=== PATIENT | female | born 1965 | race Caucasian/White ===

== ENCOUNTER 2025-01-02 14:26 | Emergency (ER) | payer OTHER, SELFPAY ==
--- NOTE | ~2025-01-02 | XR_ITS ---
CLINICAL HISTORY: chest pain 2 view chest x-ray. Comparison: None Findings: No consolidation Heart size normal No acute fracture. Impression: Lungs are clear. No pneumothorax This document has been electronically signed by: Pj Yen MD on 01/02/2025 16:34:07
--- NOTE | ~2025-01-02 | CT_ITS ---
CLINICAL HISTORY: Pleuritic pain, tachycardia CTA angiography chest using bolus contrast injection. 3-D postprocessing Comparison: None Findings: Normal thoracic aorta and branch vessels Heart size is normal. RV/LV ratio normal Normal lungs Below the diaphragm, there is gastric bypass Hill-en-Y surgery and a 6 cm hiatal hernia. There is a large 2.5 cm well-circumscribed granuloma in the periphery of the right liver dome. The gallbladder is surgically absent. Large intraperitoneal collateral blood vessels are present in the left upper quadrant No acute fractures Impression: Normal CTA angiography of the aorta. Negative for pulmonary embolus. Lungs are clear. This document has been electronically signed by: Pj Yen MD on 01/02/2025 17:16:59
--- NOTE | 2025-01-02 14:27 | ECG_ITS ---
Test Reason : CP Blood Pressure : */* mmHG Vent. Rate : 94 BPM Atrial Rate : 94 BPM P-R Int : 198 ms QRS Dur : 88 ms QT Int : 354 ms P-R-T Axes : -5 11 33 degrees QTcB Int : 442 ms Normal sinus rhythm Normal ECG No previous ECGs available Referred By: Generic ED Physician Electronically Signed By: KAYLEEN LOPEZ MD
[2025-01-02 14:42] VITALS: BP 131/88; PULSE 99; RESP 18; TEMP 36.8; O2SAT 99; BMI 29.6
--- NOTE | 2025-01-02 14:43 | ED_ITS ---
HPI - General Adult General Chief complaint: Chest Pain Stated complaint: chest pain, sent from Time Seen by Provider: 01/02/25 15:51 Source: patient Mode of arrival: ambulatory Limitations: no limitations History of Present Illness ED Provider: Vidal Mora DO HPI narrative: 59-year-old female with past medical history of insulin-dependent type 2 diabetes, hypertension, hyperlipidemia, open heart surgery for ASD at age 25, remote history of gastric bypass surgery and cholecystectomy presents to the ED with palpitations and chest pain that started approximately 2 weeks ago, was previously intermittent but constant today. She describes the chest pain as someone punched me in the chest located in the left chest, worsened with palpation and exertion with pain radiating to her left shoulder and down her left arm as well as toward her right shoulder. Patient denies previous symptoms of chest pain or palpitations. She reports associated sweating and occasional nausea with the discomfort. She denies abdominal pain, vomiting or difficulty breathing at rest but does report dyspnea on exertion and states the pain is most worsened with deep breaths. Denies lower extremity pain or swelling or previous DVT or PE. Related Data Home Medications ?Medication ?Instructions ?Recorded ?Confirmed acetaminophen 500 mg tablet 2 tab PO Q6H PRN pain 10/01/22 07/07/24 atorvastatin 10 mg tablet 1 tab PO DAILY 10/01/22 07/07/24 dulaglutide 1.5 mg/0.5 mL 0.75 mg subcut QWEEK 10/01/22 07/07/24 subcutaneous pen injector (Trulicity) ferrous sulfate 324 mg (65 mg 1 tab PO BID 10/01/22 07/07/24 iron) tablet,delayed release gabapentin 600 mg tablet 1 tab PO TID 10/01/22 07/07/24 insulin glargine 100 unit/mL (3 35 unit subcut DAILY 10/01/22 07/07/24 mL) subcutaneous pen (Lantus Solostar U-100 Insulin) metformin 1,000 mg tablet 1 tab PO BID 10/01/22 07/07/24 trazodone 100 mg tablet 2 tab PO BEDTIME PRN insomnia 10/01/22 07/07/24 bupropion HCl 300 mg 24 hr tablet, 300 mg PO DAILY 04/30/23 07/07/24 extended release flash glucose scanning reader 04/30/23 07/07/24 (FreeStyle Sean 2 [place]) hydrochlorothiazide 25 mg tablet 25 mg PO DAILY 04/30/23 07/07/24 lisinopril 40 mg tablet 40 mg PO DAILY 04/30/23 07/07/24 loratadine 10 mg tablet 10 mg PO DAILY 04/30/23 07/07/24 metoprolol succinate 25 mg 25 mg PO DAILY 04/30/23 07/07/24 tablet,extended release 24 hr omeprazole 20 mg capsule,delayed 20 mg PO BID 04/30/23 07/07/24 release venlafaxine 150 mg 150 mg PO BID 04/30/23 07/07/24 capsule,extended release 24 hr insulin lispro 100 unit/mL 5 - 10 unit subcut TID 08/09/23 07/07/24 subcutaneous pen (Humalog KwikPen (U-100) Insulin) insulin lispro 100 unit/mL 5 - 10 unit subcut TID 08/09/23 07/07/24 subcutaneous pen (Humalog KwikPen (U-100) Insulin) hyoscyamine sulfate 0.125 mg 0.125 mg PO Q4H PRN abdominal pain 07/07/24 07/07/24 disintegrating tablet Previous Rx's ?Medication ?Instructions ?Recorded cholecalciferol (vitamin D3) 125 125 mcg PO DAILY #90 tabs 10/26/24 mcg (5,000 unit) tablet (Vitamin D3) Allergies Allergy/AdvReac Type Severity Reaction Status Date / Time No Known Allergies Allergy Verified 01/02/25 14:45 Review of Systems 2 Review of Systems: Yes all other systems are reviewed and are negative [facility] Past Medical History Medical History (Updated 01/02/25 @ 18:08 by Vidal Mora DO) Fusion of lumbar spine Back pain with history of spinal surgery Atrial septal defect Bunion of unspecified foot delivery delivered Iron deficiency anemia High blood pressure Diabetes Surgical History (Updated 10/08/24 @ 13:02 by Megan Rolon) Gastric bypass status for obesity H/O heart surgery Social History Social History (System 10/08/24 @ 13:02 by Megan Rolon) Household Members: Family Patient Tobacco Use Status: Never used Tobacco Advance Directives: No Advance Directives Information Provided: Yes service: No Current occupational status: employed Physical Exam ED Vital Signs: Vital Signs - 24 hr 01/02/25 14:42 Temperature 98.2 F Pulse Rate 99 Respiratory Rate 18 Blood Pressure 131/88 Pulse Oximetry 99 Oxygen Delivery Method Room Air BMI result Body Mass Index 29.6 Constitutional: Alert, oriented, speaking in full sentences HEENT: Normocephalic, atraumatic. Moist mucous membranes Eyes: PERRL, EOMI Neck: Supple, nontender Chest: Mild chest wall tenderness to palpation Respiratory: Lungs clear to auscultation, no increased work of breathing Cardio: Regular rate and rhythm, no murmur, 2+ radial and DP pulses symmetrically GI: Soft, nondistended, nontender Back: Normal range of motion, nontender Skin: No rash, no lesions Neuro: Alert and oriented to person, place and time, moves all 4 extremities, no focal deficits Extremities: No swelling or tenderness, full range of motion Psych: Calm, alert and cooperative, appropriate behavior Course Course Course Narrative: RME performed by Luiza Wolf PA-C. Patient is a 59 year old assigned female at presenting to the emergency department with left sided chest pain and fluttering episodes. Patient states that over the last day she has had left sided chest pain with episodes of fluttering. Detailed physical exam and review of systems are deferred to the necktie turner. EKG, labs, imaging, and swabs ordered. Patient placed back in the waiting room pending room availability and results. Medications Administered Discontinued Medications Generic Name Dose Route Start Last Admin Trade Name Julio Césarq PRN Reason Stop Dose Admin Aspirin 325 mg 01/02/25 16:11 01/02/25 16:16 Aspirin Enteric Coated 325 Mg Tablet.Dr PO 01/02/25 16:12 325 mg ONCE ONE Administration Iohexol 100 ml 01/02/25 16:30 01/02/25 16:30 Iohexol 350 Mg/Ml 100 Ml Infus..Btl IV 01/02/25 16:31 65 ml ONCE ONE Administration Magnesium Oxide 400 mg 01/02/25 15:57 01/02/25 16:16 Magnesium Oxide 400 Mg Tablet PO 01/02/25 15:58 400 mg ONCE ONE Administration Medical Decision Making Medical Decision Making [facility] Narrative: patient presenting with palpitations, chest pain, exertional symptoms and pleuritic pain. Although she has no clinical findings of DVT, the patient is tachycardic and states the pain is most worsened with deep breaths. She does have some ECG findings of Q-waves and T-wave inversions in lead 3. Given the duration of her symptoms, D-dimer less likely to be utilized as an acute phase marker and therefore we will evaluate for pulmonary embolism with CT angiography magnesium slightly low, replaced. Provided aspirin for consideration for ACS although ECG and initial troponin unremarkable. Second troponin unremarkable. CT imaging unremarkable. Patient feels improved. We will apply lidocaine patch for persistent reproducible chest wall tenderness. I suspect the patient has pleurisy from unknown etiology. She was able to ambulate without difficulty, dizziness or recurrent symptoms. She appears well and has minimal pain. Although she does have risk factors I do not suspect ACS with to completely negative troponins and atypical pain that appears to be chest wall and pleuritic. Return precautions provided. Admission/Observation Consideration of admission/observation: Escalation of care including admission/observation considered Lab Data MDM Lab Attestation statement: I reviewed the patient's lab results. 01/02/25 14:56 01/02/25 14:56 Labs: Lab Results 01/02/25 01/02/25 01/02/25 Range/Units 14:55 14:56 17:05 WBC 6.4 (4.8-10.8) X10*3/uL RBC 3.81 L (4.20-5.50) X10*6/uL Hgb 12.0 (12.0-16.0) g/dl Hct 35.2 L (37.0-47.0) % MCV 92.4 (80.0-98.0) fL MCH 31.5 (27.0-33.0) pg MCHC 34.1 (31.0-35.0) g/dl RDW 13.0 (11.0-16.0) % Plt Count 197 (160-400) X10*3/uL MPV 9.4 (9.4-12.3) fL Immature Gran % (Auto) 0.2 (0.0-0.4) % Neut % (Auto) 56.4 (45-73) % Lymph % (Auto) 34.0 (20-40) % Barton % (Auto) 6.9 (2-11) % Eos % (Auto) 1.9 (0-4) % Baso % (Auto) 0.6 (0-2) % Lymph # (Auto) 2.2 (1.2-4.9) X10*3/uL Barton # (Auto) 0.4 (0.1-1.2) X10*3/uL Eos # (Auto) 0.1 (0.0-0.4) X10*3/uL Baso # (Auto) 0.0 (0.0-0.2) X10*3/uL Abs Immat Gran (auto) 0.01 (0.00-0.03) X10*3/uL Absolute Neuts (auto) 3.6 (2.0-8.3) x10*3/uL Absolute Nucleated RBC 0.000 (0.0-0.012) X10*3/uL Nucleated RBC % (auto) 0.0 (0.0-0.2) /100WBC PT 8.9 L (10.9-12.4) SEC INR 0.8 L (0.9-1.1) Sodium 141 (135-145) mmol/L Potassium 3.9 (3.3-5.1) mmol/L Chloride 110 H (96-108) mmol/L Carbon Dioxide 22 (22-29) mmol/L Anion Gap 13 (12-20) BUN 18 H (9-16) mg/dL Creatinine 0.99 (0.5-1.4) mg/dL Estim Creat Clear Calc 64.9 Estimated GFR 58 Random Glucose 128 H (60-115) mg/dL Calcium 9.0 (8.4-10.2) mg/dL Magnesium 1.5 L (1.6-2.6) mg/dL Total Bilirubin 0.3 (0.0-1.0) mg/dL AST 27 (5-31) U/L ALT 28 (0-31) U/L Alkaline Phosphatase 68 (39-117) U/L Troponin I High Sens < 2.7 < 2.7 (<3.5-17.0) ng/L Total Protein 6.6 (6.5-8.0) g/dL Albumin 4.1 (3.5-5.0) g/dL TSH 0.61 (0.32-4.0) uIU/mL Influenza Type A (PCR) NEGATIVE (Negative) Influenza Type B (PCR) NEGATIVE (Negative) RSV RNA Qual (PCR) NEGATIVE (Negative) SARS-CoV-2 RNA (RT-PCR) NEGATIVE (Negative) Independent Interpretation I performed an independent interpretation of an: EKG and Plain X-Ray ( Chest x- ray per my independent interpretation shows no acute cardiopulmonary abnormalities.) Interpretation: Sinus rhythm at 94 beats per minute, borderline prolonged DC interval, normal axis, a psych ST or T-wave abnormalities, no prior for comparison. Discharge Plan Discharge Clinical Impression: Anterior pleuritic pain Patient Disposition: Home, Self-Care Instructions: Chest Pain (ED) Additional Instructions: You have been evaluated in the emergency department for chest pain today.? Although it was determined that there was not an immediately life threatening cause for your chest pain, it is very important that you follow up with your primary care physician.? Further cardiac (heart) testing may be recommended. daily lidocaine patch and Tylenol every 8 hours as needed for pain Please be aware that if your condition changes or worsens in any way while you are at home, you should return to the emergency department immediately for further care.? This is especially true for worsening / recurrent pain, shortness of breath, vomiting, sweating, palpitations, lightheadedness or passing out.? These may be signs of an emergency condition and you should call 911 if these symptoms occur. Thank you for choosing us for your care. Prescriptions: No Action gabapentin 600 mg tablet 1 tab PO TID atorvastatin 10 mg tablet 1 tab PO DAILY acetaminophen 500 mg tablet 2 tab PO Q6H PRN (Reason: pain) trazodone 100 mg tablet 2 tab PO BEDTIME PRN (Reason: insomnia) metformin 1,000 mg tablet 1 tab PO BID ferrous sulfate 324 mg (65 mg iron) tablet,delayed release (DR/EC) 1 tab PO BID insulin glargine [Lantus Solostar U-100 Insulin] 100 unit/mL (3 mL) insulin pen 35 unit subcut DAILY Trulicity 1.5 mg/0.5 mL pen injector 0.75 mg subcut QWEEK venlafaxine 150 mg capsule,extended release 24hr 150 mg PO BID omeprazole 20 mg capsule,delayed release(DR/EC) 20 mg PO BID hydrochlorothiazide 25 mg tablet 25 mg PO DAILY metoprolol succinate 25 mg tablet extended release 24 hr 25 mg PO DAILY lisinopril 40 mg tablet 40 mg PO DAILY loratadine 10 mg tablet 10 mg PO DAILY bupropion HCl 300 mg tablet extended release 24 hr 300 mg PO DAILY (DME) FreeStyle Sean 2 [place] Misc MISCELLANEOUS QID insulin lispro [Humalog KwikPen Insulin] 100 unit/mL insulin pen 5 - 10 unit subcut TID insulin lispro [Humalog KwikPen Insulin] 100 unit/mL insulin pen 5 - 10 unit subcut TID hyoscyamine sulfate 0.125 mg tablet,disintegrating 0.125 mg PO Q4H PRN (Reason: abdominal pain) cholecalciferol (vitamin D3) [Vitamin D3] 125 mcg (5,000 unit) Tablet 125 mcg PO DAILY Qty: 90 3RF Print Language: [place]
[2025-01-02 15:01] LABS: MANUAL DIFF FLAG NO
[2025-01-02 15:02] LABS: Basophils Percent Auto 0.6 % (0-2); Eosinophils Absolute Auto 0.1 X10*3/uL (0.0-0.4); Eosinophils Percent Auto 1.9 % (0-4); Hematocrit 35.2 % (37.0-47.0); Imm Gran Abs Auto 0.01 X10*3/uL (0.00-0.03); Imm Gran Pct Auto 0.2 % (0.0-0.4); Lymphocytes Absolute Auto 2.2 X10*3/uL (1.2-4.9); Mean Corpuscular HGB Conc 34.1 g/dl (31.0-35.0); Mean Corpuscular Hemoglobin 31.5 pg (27.0-33.0); Mean Corpuscular Volume 92.4 fL (80.0-98.0); Mean Platelet Volume 9.4 fL (9.4-12.3); Monocytes Absolute Auto 0.4 X10*3/uL (0.1-1.2); Monocytes Percent Auto 6.9 % (2-11); Neutrophils Absolute Auto 3.6 x10*3/uL (2.0-8.3); Neutrophils Percent Auto 56.4 % (45-73); Platelet Count 197 X10*3/uL (160-400); Red Blood Count 3.81 X10*6/uL (4.20-5.50); White Blood Count 6.4 X10*3/uL (4.8-10.8)
[2025-01-02 15:07] LABS: INTERNATIONAL NORM RATIO 0.8 (0.9-1.1); Prothrombin Time 8.9 SEC (10.9-12.4)
[2025-01-02 15:25] LABS: Alanine Aminotransferase 28 U/L (0-31); Albumin Level 4.1 g/dL (3.5-5.0); Alkaline Phosphatase 68 U/L (39-117); Anion Gap 13 (12-20); Aspartate Amino Transferase 27 U/L (5-31); Bilirubin Total 0.3 mg/dL (0.0-1.0); Blood Urea Nitrogen 18 mg/dL (9-16); Carbon Dioxide 22 mmol/L (22-29); Chloride 110 mmol/L (96-108); Creatinine Clr Calc Pharmacy 64.9; Estimated Glomerular Filt Rate 58; Glucose Random 128 mg/dL (60-115); Magnesium 1.5 mg/dL (1.6-2.6); Potassium 3.9 mmol/L (3.3-5.1); Sodium 141 mmol/L (135-145); Total Protein 6.6 g/dL (6.5-8.0); Troponin-I High Sensitivity < 2.7 ng/L (<3.5-17.0)
[2025-01-02 15:38] LABS: TSH reflex Free T4 0.61 uIU/mL (0.32-4.0)
[2025-01-02 15:41] LABS: Influenza A PCR NEGATIVE (Negative); Influenza B PCR NEGATIVE (Negative); Resp Syncy Virus RNA Qual PCR NEGATIVE (Negative); SARS COV2 PCR INHOUSE NEGATIVE (Negative)
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
[2025-01-02] MEDS: Magnesium Oxide 400 MG TABLET PO (16:16)
[2025-01-02] MEDS: Aspirin Enteric Coated 325 MG TABLET.DR PO (16:16)
[2025-01-02] MEDS: iohexoL 350 MG/ML 100 ML INFUS..BTL IV (16:30)
[2025-01-02 17:31] LABS: Troponin-I High Sensitivity < 2.7 ng/L (<3.5-17.0)
[2025-01-02] MEDS: Lidocaine 4 % Patch ADH..PATCH 1 PATCH TRANSDERMA (18:24)
[2025-01-02 18:26] VITALS: BP 122/84; PULSE 79; RESP 18; TEMP 36.8; O2SAT 98
== END 2025-01-02 18:27 | disposition home or self-care (01) ==
PROVIDERS: Physician Assistant Medical; Emergency Provider Emergency Medicine
DX: R07.89 Other chest pain (principal); E11.9 Type 2 diabetes mellitus without complications; I10 Essential (primary) hypertension; E78.5 Hyperlipidemia, unspecified; Z79.02 Long term (current) use of antithrombotics/antiplatelets; Z79.4 Long term (current) use of insulin; Z79.84 Long term (current) use of oral hypoglycemic drugs; Z79.899 Other long term (current) drug therapy; Z03.818 Encounter for observation for suspected exposure to other biological agents ruled out
CPT/HCPCS: 0241U; 36415; 71046; 71275; 80053; 83735; 84443; 84484; 85025; 85610; 93005; 99284; 99285; Q9967

== ENCOUNTER → 2025-01-02 14:27 | Outpatient (BNV) | payer OTHER, SELFPAY | PROVIDERS: Emergency Provider Emergency Medicine; Visit Provider Internal Medicine Cardiovascular Disease | DX: R07.9 Chest pain, unspecified (principal) | CPT/HCPCS: 93010 ==

== ENCOUNTER → 2025-01-02 14:44 | Outpatient (BNV) | payer OTHER, SELFPAY | PROVIDERS: Emergency Provider Emergency Medicine; Visit Provider Radiology Diagnostic Radiology | DX: R07.81 Pleurodynia (principal); R00.0 Tachycardia, unspecified; R07.9 Chest pain, unspecified | CPT/HCPCS: 71046; 71275 ==

== ENCOUNTER 2025-04-17 15:56 | Emergency (ER) | payer OTHER, SELFPAY ==
--- OUTSIDE RECORDS SUMMARY | 2013-05-26 | XMS_ITS | Encounter Summary ---
Author Organization [facility] Address [address] [facility] [address] [place] [address] Phone Care Team Providers Care Aligning Inspector Name Role Phone Unavailable Primary Care Provider Unavailabl e Encounter Details Date Type Department Care Team (Late st Contact Info) Description 05/26/2013 Hospital Encounter [facility],Outside Imaging [address] [place], [place] [phone] Unknown, Unknown, Social History Tobacco Use Types [...] 08/13/2022 4:58 PM Carol Orozco RN * [place] Suicide Severity Rating Scale (Screener/Recent Self-Report) Question [...] It is not the complete legal health record.[facility]
--- OUTSIDE RECORDS SUMMARY | 2013-05-28 | XMS_ITS | Encounter Summary ---
Author Organization [facility] Address [address] [facility] [address] [place] [address] Phone Care Team Providers Care Business Management Manager Name Role Phone Unavailable Primary Care Provider Unavailabl e Encounter Details Date Type Department Care Team (Late st Contact Info) Description 05/28/2013 Hospital Encounter [facility],Outside Imaging [address] [place], [place] [phone] Unknown, Unknown, Social History Tobacco Use Types [...] 08/13/2022 4:58 PM Carol Orozco RN * [place] Suicide Severity Rating Scale (Screener/Recent Self-Report) Question [...] It is not the complete legal health record.[facility]
--- NOTE | ~2025-04-17 | CT_ITS ---
CLINICAL HISTORY: LLQ pain Tenderness; Diarrhea CT abdomen and pelvis with contrast Comparison: None provided Findings: LIMITED CHEST: Lung bases are clear. LIVER: Rounded peripherally calcified lesion at the hepatic dome measuring 1.4 cm similar to prior exam. BILIARY: Cholecystectomy. PANCREAS: No mass or ductal dilatation. SPLEEN: No splenomegaly. KIDNEYS: No hydronephrosis or radiopaque stone. ADRENALS: Nonspecific thickening without discrete nodule. VASCULAR: No aneurysm. RETROPERITONEUM: No lymphadenopathy or mass. BOWEL/MESENTERY: Moderate hiatal hernia. Postsurgical changes of gastric bypass. No free fluid or air. Normal appendix. Majority of the colon is decompressed with mild wall thickening. ABDOMINAL WALL: No mass or significant abnormality. Presumed medication administration site in the right anterior abdomen. URINARY BLADDER: No focal wall thickening. PELVIC NODES: No pelvic lymphadenopathy. PELVIC ORGANS: Normal for age. BONES: No acute fracture. Fusion changes at L4-S1. OTHER: Negative. IMPRESSION: Mild pancolonic wall thickening, nonspecific, however may represent infectious or inflammatory colitis in the appropriate clinical setting. Normal appendix. This document has been electronically signed by: Maryjo Arroyo MD on 04/17/2025 22:28:42
[2025-04-17 16:00] VITALS: BP 103/62; PULSE 105; RESP 18; TEMP 36.9; O2SAT 94; BMI 28.3
--- NOTE | 2025-04-17 16:01 | ED.GENADULT ---
HPI - General Adult General Chief complaint: Abdominal Pain Stated complaint: abd pain Time Seen by Provider: 04/17/25 20:04 Source: patient Mode of arrival: ambulatory Limitations: no limitations History of Present Illness ED Provider: Juan Pablo CERRATO HPI narrative: The patient is a 59-year-old female presenting to the ED reporting for the past week she has been experiencing generalized lower abdominal pain with the associated urinary urgency with hesitancy. The patient denies associated hematuria or dysuria. The patient reports subjective fever/chills with the associated intermittent nonbloody diarrhea and a nonproductive cough. Patient denies associated objective fever, vomiting, hematochezia, melena, productive cough, shortness of breath, chest pain, pleurisy, hemoptysis, recent sick contacts, or recent trauma. Patient reports she is status post gastric bypass 10 years ago, and status post cholecystectomy many years before that. Patient reports she is 16 years postmenopausal, denies any associated irregular vaginal discharge or vaginal bleeding. Patient reports a history of urosepsis approximately 20 years ago but denies frequent UTIs. Related Data Home Medications ?Medication ?Instructions ?Recorded ?Confirmed acetaminophen 500 mg tablet 2 tab PO Q6H PRN pain 10/01/22 07/07/24 atorvastatin 10 mg tablet 1 tab PO DAILY 10/01/22 07/07/24 dulaglutide 1.5 mg/0.5 mL 0.75 mg subcut QWEEK 10/01/22 07/07/24 subcutaneous pen injector (Trulicity) ferrous sulfate 324 mg (65 mg 1 tab PO BID 10/01/22 07/07/24 iron) tablet,delayed release gabapentin 600 mg tablet 1 tab PO TID 10/01/22 07/07/24 insulin glargine 100 unit/mL (3 35 unit subcut DAILY 10/01/22 07/07/24 mL) subcutaneous pen (Lantus Solostar U-100 Insulin) metformin 1,000 mg tablet 1 tab PO BID 10/01/22 07/07/24 trazodone 100 mg tablet 2 tab PO BEDTIME PRN insomnia 10/01/22 07/07/24 bupropion HCl 300 mg 24 hr tablet, 300 mg PO DAILY 04/30/23 07/07/24 extended release flash glucose scanning reader 04/30/23 07/07/24 (FreeStyle Sean 2 [place]) hydrochlorothiazide 25 mg tablet 25 mg PO DAILY 04/30/23 07/07/24 lisinopril 40 mg tablet 40 mg PO DAILY 04/30/23 07/07/24 loratadine 10 mg tablet 10 mg PO DAILY 04/30/23 07/07/24 metoprolol succinate 25 mg 25 mg PO DAILY 04/30/23 07/07/24 tablet,extended release 24 hr omeprazole 20 mg capsule,delayed 20 mg PO BID 04/30/23 07/07/24 release venlafaxine 150 mg 150 mg PO BID 04/30/23 07/07/24 capsule,extended release 24 hr insulin lispro 100 unit/mL 5 - 10 unit subcut TID 08/09/23 07/07/24 subcutaneous pen (Humalog KwikPen (U-100) Insulin) insulin lispro 100 unit/mL 5 - 10 unit subcut TID 08/09/23 07/07/24 subcutaneous pen (Humalog KwikPen (U-100) Insulin) hyoscyamine sulfate 0.125 mg 0.125 mg PO Q4H PRN abdominal pain 07/07/24 07/07/24 disintegrating tablet Previous Rx's ?Medication ?Instructions ?Recorded cholecalciferol (vitamin D3) 125 125 mcg PO DAILY #90 tabs 10/26/24 mcg (5,000 unit) tablet (Vitamin D3) Allergies Allergy/AdvReac Type Severity Reaction Status Date / Time No Known Allergies Allergy Verified 04/17/25 16:01 Review of Systems Review of Systems: Yes all other systems are reviewed and are negative [facility] Past Medical History Medical History (Updated 04/18/25 @ 00:03 by Juan Pablo Pompa PA-C) Fusion of lumbar spine Back pain with history of spinal surgery Atrial septal defect Bunion of unspecified foot delivery delivered Iron deficiency anemia High blood pressure Diabetes Surgical History (Updated 10/08/24 @ 13:02 by Megan Rolon) Gastric bypass status for obesity H/O heart surgery Social History Social History (System 10/08/24 @ 13:02 by Megan Rolon) Household Members: Family Patient Tobacco Use Status: Never used Tobacco Smoked in Last 30 Days: No Use of substances other than those prescribed or required for medical reasons: No Advance Directives: No Advance Directives Information Provided: No Do you have a plan to hurt others: No Plan service: No Current occupational status: employed Physical Exam ED Vital Signs: Vital Signs - 24 hr 04/17/25 16:00 04/17/25 18:31 04/17/25 20:28 Temperature 98.5 F 97.4 F 97.9 F Pulse Rate 105 H 91 86 Respiratory Rate 18 18 16 Blood Pressure 103/62 109/66 118/71 Pulse Oximetry 94 95 94 Oxygen Delivery Method Room Air Room Air Room Air 04/17/25 23:02 Temperature 98.3 F Pulse Rate 89 Respiratory Rate 16 Blood Pressure 120/76 Pulse Oximetry 95 Oxygen Delivery Method Room Air BMI result Body Mass Index 28.3 CONSTITUTIONAL: The patient appears non-toxic, well nourished and in no acute distress. Vital signs as documented. HEAD: Atraumatic, normocephalic. EYES: EOMs grossly intact, pupils equal, conjunctiva clear, no exudate. ENT: Nares patent, no discharge. Airway patent, no audible stridor, visible mucosa is pink and moist without noted lesions. NECK: Trachea is midline, no obvious masses or gross abnormalities. CHEST: Symmetric movement, normal appearance. LUNGS: LS present and CTAB, no w/r/r. Non-labored work of breathing. CARDIAC: Regular Rhythm, S1/S2 appreciated, no murmurs, rubs or gallops. ABDOMEN: Abdomen soft x4 quadrants, positive tenderness to palpation of the bilateral lower quadrants, [id number]-[id number], negative rebound, negative Rovsing's, no palpable masses or organomegaly. : Deferred. EXTREMITIES: Normal tone, moves all extremities spontaneously without reported pain. No obvious acute injury or deformity noted. NEURO: Alert and oriented x3, CN II-XII appear grossly intact. Cerebellar Functioning grossly intact. No obvious sensory or motor deficits. Speech clear and appropriate. PSYCH: normal affect, appropriate eye contact, fluid speech, with appropriate response to questioning. No reported suicidality or homicidality. SKIN: Warm, dry, color appropriate, normal turgor. No rashes noted. Course Course Course Narrative: Rapid medical examination performed in triage by Luiza Wolf PA-C. Patient is a 59 year old assigned female at presenting to the emergency department with abdominal pain. Detailed physical exam and review of systems are deferred to the tabber. Labs ordered. Patient placed back in the waiting room pending room availability and results. Medications Administered Discontinued Medications Generic Name Dose Route Start Last Admin Trade Name Jesús PRN Reason Stop Dose Admin Sodium Chloride 1,000 mls @ 999 mls/hr 04/17/25 20:45 04/17/25 22:16 Ns IV 04/17/25 21:45 Infused .Q1H1M NEGIN Infusion Iohexol 85 ml 04/17/25 21:37 04/17/25 21:37 Iohexol 350 Mg/Ml 100 Ml Infus..Btl IV 04/17/25 21:38 85 ml ONCE ONE Administration Ketorolac Tromethamine 15 mg 04/17/25 22:58 04/17/25 23:00 Ketorolac Tromethamine 15 Mg/Ml Vial IVPUSH 04/17/25 22:59 15 mg ONCE ONE Administration Morphine Sulfate 4 mg 04/17/25 20:39 04/17/25 21:08 Morphine Sulfate 4 Mg/Ml Cartridge IVPUSH 04/17/25 20:40 4 mg ONCE ONE Administration Protocol Ondansetron HCl 4 mg 04/17/25 20:39 04/17/25 21:04 Ondansetron Hcl 4 Mg/2 Ml Vial IVPUSH 04/17/25 20:40 4 mg ONCE ONE Administration Medical Decision Making Medical Decision Making MDM Narrative: 8:45 PM 04/17/2025 (Angelo CERRATO): Patient is a 59-year-old female presenting to the ED for 1 week of abdominal pain with urinary urgency and intermittent diarrhea, patient also reports nonproductive cough and generalized fatigue and malaise. The patient in the ED is uncomfortable appearing but nontoxic. Abdominal exam reveals bilateral lower quadrant abdominal tenderness without rebound, tenderness is greater on the left. The patient's laboratory evaluation shows no leukocytosis, significant anemia, or electrolyte abnormality. The patient's BUN is elevated at 24, no significant LFT abnormalities. The patient's urinalysis shows trace leukocyte esterase, no bacteria or nitrites. Due to abdominal tenderness without identifiable cause, the patient will be sent for CT abdomen and pelvis, we will treat symptoms with IV fluid hydration, morphine, and Zofran. 10:54 PM 04/17/2025 (Angelo CERRATO): The patient's CT has resulted and shows mild pancolonic wall thickening which is nonspecific, possibly representing inflammatory or infectious colitis. Given the patient's abdominal discomfort, intermittent diarrhea, nonproductive cough and generalized malaise/fatigue, patient is likely suffering from a viral syndrome. We will test for COVID and influenza, and plan for discharge with supportive care. 11:59 PM 04/17/2025 (Angelo CERRATO): The patient's COVID and influenza testing were both negative. The patient has had improvement in symptoms following Toradol administration. Given the patient's reassuring workup med improvement in symptoms, patient will be discharged with supportive care and instructions to follow up with PCP for likely viral syndrome. Admission/Observation Consideration of admission/observation: Escalation of care including admission/observation considered Lab Data MDM Lab Attestation statement: I reviewed the patient's lab results. 04/17/25 16:42 04/17/25 16:42 Labs: Lab Results 04/17/25 04/17/25 04/17/25 Range/Units 16:42 16:47 22:58 WBC 5.2 (4.8-10.8) X10*3/uL RBC 3.80 L (4.20-5.50) X10*6/uL Hgb 11.9 L (12.0-16.0) g/dl Hct 34.1 L (37.0-47.0) % MCV 89.7 (80.0-98.0) fL MCH 31.3 (27.0-33.0) pg MCHC 34.9 (31.0-35.0) g/dl RDW 12.9 (11.0-16.0) % Plt Count 215 (160-400) X10*3/uL MPV 9.0 L (9.4-12.3) fL Immature Gran % (Auto) 0.4 (0.0-0.4) % Neut % (Auto) 51.7 (45-73) % Lymph % (Auto) 38.2 (20-40) % [place] % (Auto) 7.9 (2-11) % Eos % (Auto) 1.2 (0-4) % Baso % (Auto) 0.6 (0-2) % Lymph # (Auto) 2.0 (1.2-4.9) X10*3/uL [place] # (Auto) 0.4 (0.1-1.2) X10*3/uL Eos # (Auto) 0.1 (0.0-0.4) X10*3/uL Baso # (Auto) 0.0 (0.0-0.2) X10*3/uL Abs Immat Gran (auto) 0.02 (0.00-0.03) X10*3/uL Absolute Neuts (auto) 2.7 (2.0-8.3) x10*3/uL Absolute Nucleated RBC 0.000 (0.0-0.012) X10*3/uL Nucleated RBC % (auto) 0.0 (0.0-0.2) /100WBC Sodium 138 (135-145) mmol/L Potassium 4.4 (3.3-5.1) mmol/L Chloride 104 (96-108) mmol/L Carbon Dioxide 18 L (22-29) mmol/L Anion Gap 20 (12-20) BUN 24 H (9-16) mg/dL Creatinine 1.09 (0.5-1.4) mg/dL Estim Creat Clear Calc 57.7 Estimated GFR 52 Random Glucose 193 H (60-115) mg/dL Calcium 8.7 (8.4-10.2) mg/dL Magnesium 1.8 (1.6-2.6) mg/dL Total Bilirubin 0.3 (0.0-1.0) mg/dL AST 38 H (5-31) U/L ALT 44 H (0-31) U/L Alkaline Phosphatase 73 (39-117) U/L Total Protein 6.7 (6.5-8.0) g/dL Albumin 4.2 (3.5-5.0) g/dL Urine Color Yellow Urine Appearance Clear Urine pH 5.5 (5.0-9.0) Ur Specific [place] 1.025 (1.005-1.025) Urine Protein Trace (Neg-Trace) mg/dL Urine Glucose (UA) 250 H (Negative) mg/dL Urine Ketones 15 (Negative) mg/dL Urine Blood Negative (Negative) Urine Nitrite Negative (Negative) Ur Leukocyte Esterase Trace H (Negative) Urine RBC 0-2 (0-2) /HPF Urine WBC 0-5 (0-5) /HPF Ur Squamous Epith Cells 0-2 (0-2) /HPF Urine Bacteria None Seen (None Seen) Hyaline Casts 3-5 (0-2) /LPF COVID-19 (CARLOS ALBERTO) Negative (Negative) COVID-19 Clin Com See Note Influenza Type A (BRYAN) Negative (Negative) Influenza Type B (BRYAN) Negative (Negative) Influenza A & B Note See Note Radiology Impression Discussion of test interpretation with radiology: I have reviewed the radiologist's reading. Radiologist Impression: CLINICAL HISTORY: LLQ pain Tenderness; Diarrhea CT abdomen and pelvis with contrast Comparison: None provided Findings: LIMITED CHEST: Lung bases are clear. LIVER: Rounded peripherally calcified lesion at the hepatic dome measuring 1.4 cm similar to prior exam. BILIARY: Cholecystectomy. PANCREAS: No mass or ductal dilatation. SPLEEN: No splenomegaly. KIDNEYS: No hydronephrosis or radiopaque stone. ADRENALS: Nonspecific thickening without discrete nodule. VASCULAR: No aneurysm. RETROPERITONEUM: No lymphadenopathy or mass. BOWEL/MESENTERY: Moderate hiatal hernia. Postsurgical changes of gastric bypass. No free fluid or air. Normal appendix. Majority of the colon is decompressed with mild wall thickening. ABDOMINAL WALL: No mass or significant abnormality. Presumed medication administration site in the right anterior abdomen. URINARY BLADDER: No focal wall thickening. PELVIC NODES: No pelvic lymphadenopathy. PELVIC ORGANS: Normal for age. BONES: No acute fracture. Fusion changes at L4-S1. OTHER: Negative. IMPRESSION: Mild pancolonic wall thickening, nonspecific, however may represent infectious or inflammatory colitis in the appropriate clinical setting. Normal appendix. This document has been electronically signed by: Maryjo Arroyo MD on 04/17/2025 22:28:42 External Record Review External record reviewed: Outpatient record and Prior outpatient labs Prescription Management I considered prescription management with: Pain Medication Discharge Plan Discharge Clinical Impression: Acute viral syndrome, Viral colitis Patient Disposition: Home, Self-Care Instructions: Viral Syndrome (ED), Enteritis (ED) Additional Instructions: Thank you for choosing [facility]'s Emergency Department for your care today. Thankfully your laboratory evaluation, CT, urinalysis, and examination today have not shown any indication for admission to the hospital or continued ED observation, and it is safe to discharge you home. Your CT shows no evidence of bowel obstruction, diverticulitis, or other bacterial infection. Your urinalysis shows no evidence of UTI, and your laboratory evaluation shows no evidence of bacterial infection, electrolyte abnormality or renal impairment. You tested negative for COVID-[address] does show some inflammation of your colon consistent with colitis, given your constellation of symptoms this is most likely caused by a viral illness resulting in your cough, fatigue, abdominal discomfort, and diarrhea. You may take alternating (staggered) doses of ibuprofen 600mg and Tylenol 1000mg every 4 hours as needed for any additional pain. Please stay well hydrated and get plenty of rest. Please follow up with your primary care physician for re-evaluation, additional management of your symptoms, and continued preventative care. If you do not have a primary care physician, please call the [facility] at [phone] to establish a new primary care physician. While waiting to establish your new primary care physician, you can call our Walk[facility]in [facility] at [phone] for non-emergency needs. Please return to the emergency department if you develop a severe or sudden change in your symptoms, a fever over 100.4 that does not improve with Tylenol or Ibuprofen, recurrent vomiting, or any other new or worsening symptoms or concerns. Prescriptions: No Action gabapentin 600 mg tablet 1 tab PO TID atorvastatin 10 mg tablet 1 tab PO DAILY acetaminophen 500 mg tablet 2 tab PO Q6H PRN (Reason: pain) trazodone 100 mg tablet 2 tab PO BEDTIME PRN (Reason: insomnia) metformin 1,000 mg tablet 1 tab PO BID ferrous sulfate 324 mg (65 mg iron) tablet,delayed release (DR/EC) 1 tab PO BID insulin glargine [Lantus Solostar U-100 Insulin] 100 unit/mL (3 mL) insulin pen 35 unit subcut DAILY Trulicity 1.5 mg/0.5 mL pen injector 0.75 mg subcut QWEEK venlafaxine 150 mg capsule,extended release 24hr 150 mg PO BID omeprazole 20 mg capsule,delayed release(DR/EC) 20 mg PO BID hydrochlorothiazide 25 mg tablet 25 mg PO DAILY metoprolol succinate 25 mg tablet extended release 24 hr 25 mg PO DAILY lisinopril 40 mg tablet 40 mg PO DAILY loratadine 10 mg tablet 10 mg PO DAILY bupropion HCl 300 mg tablet extended release 24 hr 300 mg PO DAILY (DME) FreeStyle Sean 2 [place] Misc MISCELLANEOUS QID insulin lispro [Humalog KwikPen Insulin] 100 unit/mL insulin pen 5 - 10 unit subcut TID insulin lispro [Humalog KwikPen Insulin] 100 unit/mL insulin pen 5 - 10 unit subcut TID hyoscyamine sulfate 0.125 mg tablet,disintegrating 0.125 mg PO Q4H PRN (Reason: abdominal pain) cholecalciferol (vitamin D3) [Vitamin D3] 125 mcg (5,000 unit) Tablet 125 mcg PO DAILY Qty: 90 3RF Referrals: [facility] [Primary Care Provider, Primary Care] Clinical Impression: Acute viral syndrome; Viral colitis Print Language: Divehi
[2025-04-17 16:47] LABS: MANUAL DIFF FLAG NO
[2025-04-17 16:48] LABS: Hematocrit 34.1 % (37.0-47.0); Hemoglobin 11.9 g/dl (12.0-16.0); Imm Gran Abs Auto 0.02 X10*3/uL (0.00-0.03); Imm Gran Pct Auto 0.4 % (0.0-0.4); Lymphocytes Absolute Auto 2.0 X10*3/uL (1.2-4.9); Mean Corpuscular HGB Conc 34.9 g/dl (31.0-35.0); Mean Corpuscular Hemoglobin 31.3 pg (27.0-33.0); Mean Corpuscular Volume 89.7 fL (80.0-98.0); NRBC Abs Auto 0.000 X10*3/uL (0.0-0.012); NRBC Pct Auto 0.0 /100WBC (0.0-0.2); Platelet Count 215 X10*3/uL (160-400); Red Blood Count 3.80 X10*6/uL (4.20-5.50); White Blood Count 5.2 X10*3/uL (4.8-10.8)
[2025-04-17 16:54] LABS: Appearance Urine Clear; Glucose Urine UA 250 mg/dL (Negative); PH 5.5 (5.0-9.0); Specific Gravity - Urine 1.025 (1.005-1.025); UMIC TRIGGER UACC YES
[2025-04-17 17:01] LABS: Alanine Aminotransferase 44 U/L (0-31); Albumin Level 4.2 g/dL (3.5-5.0); Alkaline Phosphatase 73 U/L (39-117); Anion Gap 20 (12-20); Aspartate Amino Transferase 38 U/L (5-31); Blood Urea Nitrogen 24 mg/dL (9-16); Calcium 8.7 mg/dL (8.4-10.2); Carbon Dioxide 18 mmol/L (22-29); Chloride 104 mmol/L (96-108); Creatinine Clr Calc Pharmacy 57.7; Estimated Glomerular Filt Rate 52; Magnesium 1.8 mg/dL (1.6-2.6); Potassium 4.4 mmol/L (3.3-5.1); Sodium 138 mmol/L (135-145); Total Protein 6.7 g/dL (6.5-8.0)
--- OUTSIDE RECORDS SUMMARY | 2025-04-17 18:19 | XMS_ITS | Encounter Summary ---
Author Organization [facility] Address [address] [place] [address] Phone Care Team Providers Care Manager Database Administration Name Role Phone Anna Taylor MD Primary Care Provider [phone] Arlet Singh MD, MPH Primary Care Provider + Encounter Details Date Type Department Care Team (Late st Contact Info) Description 07/27/2022 Procedure Pass [facility], Ct Scan - [address] [address] Social History Tobacco Use Types Packs/Day Years Used Date Smoking Tobacco: Never Smokeless Tobacco: Never Alcohol Use Standard Drinks/Week Comments Yes 5 (1 standard drink = 0.6 oz pur e alcohol) Fridays Comments No Sex and Gender Information Value Date Recorded Sex Assigned at Female 07/27/2022 10:51 AM EST Legal Sex Female 9:39 PM EDT Gender Identity Female 07/27/2022 10:51 AM EST Sexual Orientation Straight 08/13/2022 5: 01 PM EST documented as of this encounter Functional Status * Calculated C-SSRS Risk Score (Lifetime/Recent) Answer Date of Assessment Author No Risk Indicated 07/27/2022 10:51 AM Krista Noe RN * [place] Suicide Severity Rating Scale (Screener/Recent Self-Report) Question Answer Date of Assessment Author 1. Wish to be (Past 1 Month) No 022 10:51 AM Krista Noe, SARAH 2. Non-Specific Active Suici stephanie Thoughts (Past 1 Month) No 07/27/2022 10:51 AM Gigi Noe RN 6. Suicidal Behavior (Lifetime) No 2 10:51 AM Krista Noe, RN documented as of this encounter Plan of Treatment Not on file documented as of this encounter Visit Diagnoses Not on filedocumented in this encounter Care Teams Manager Database Administration Relationship Specialty Start Date End Date Anna Taylor MD [email or web address] PCP - General Family Medicine 06/05/22 05/25/23 Arlet Singh MD, MPH [address] [place] [id number] [email or web address] PCP - General Family Medicine 05/26/23 documented as of this encounter Additional Source Comments The information contained in this document represents components of the legal health record. It is not the complete legal health record.[facility]
--- OUTSIDE RECORDS SUMMARY | 2025-04-17 18:19 | XMS_ITS | Encounter Summary ---
Author Organization [facility] Address [address] [place] [phone] Phone Care Team Providers Care Full Time Staff Interpreter Name Role Phone Anna Taylor MD Primary Care Provider [phone] Arlet Singh MD, MPH Primary Care Provider + Encounter Details Date Type Department Care Team (Late st Contact Info) Description 09/03/2022 Procedure Pass [facility] Admitting Dept Virtual Department [address] [place] [address] Social History Tobacco Use Types Packs/Day Years Used Date Smoking Tobacco: Never Smokeless Tobacco: Never Alcohol Use Standard Drinks/Week Comments Yes 5 (1 standard drink = 0.6 oz pure alcohol) Fridays - None since August Intimate Partner Violence Answer Date R ecorded Are you denied basic needs [facility] as food, clothing, or medical care? No 09/03/2022 In the past 12 months have y ou been in a relationship with a person who hurts, threatens, or tries to control you? No 09/03/2022 Are you denied basic needs [facility] as food, clothing, or medical care? No [...] PM EST documented as of this encounter Plan of Treatment Not on file documented as of this encounter Visit Diagnoses Not on filedocumented in this encounter Care Teams Full Time Staff Interpreter Relationship Specialty Start Date End Date Anna Taylor MD [email or web address] PCP - General Family Medicine 06/05/22 05/25/23 Arlet Singh MD, MPH [address] [place] [id number] [email or web address] PCP - General Family Medicine 05/26/23 documented as of this encounter Additional Source Comments The information contained in this document represents components of the legal health record. It is not the complete legal health record.[facility]
--- OUTSIDE RECORDS SUMMARY | 2025-04-17 18:19 | XMS_ITS | Encounter Summary ---
Author Organization [facility] Address [address] [facility] [address] [place] [address] Phone Care Team Providers Care Registered Public Surveyor Name Role Phone Anna Taylor MD Primary Care Provider [phone] Arlet Singh MD, MPH Primary Care Provider + Encounter Details Date Type Department Care Team (Late st Contact Info) Description 05/07/2023 Procedure Pass [facility], [address] [address] Social History Tobacco Use Types Packs/Day Years [...] on filedocumented in this encounter Care Teams Registered Public Surveyor Relationship Specialty Start Date End Date Anna Taylor MD PCP - General Family Medicine 06/05/22 05/25/23 Arlet Singh MD, MPH [address] [place] [phone] PCP - General Family Medicine 05/26/23 documented as of this encounter Additional Source Comments The information contained in this document represents components of the legal health record. It is not the complete legal health record.[facility]
--- OUTSIDE RECORDS SUMMARY | 2025-04-17 18:19 | XMS_ITS | Encounter Summary ---
Author Organization [facility] Address [address] [facility] [address] [place] [address] Phone Care Team Providers Care Die Repair Name Role Phone Cheyenne Oshea MD Unavailable [phone] Baltazar Burnham MD Unavailable Baltazar Burnham MD Primary Care Provider [phone] Anna Taylor MD Primary Care Provider [phone] Arlet Singh MD, MPH Primary Care Provider + Encounter Details Date Type Department Care Team (Late st Contact Info) Description 01/30/2021 Procedure Pass [facility], Ct Scan - [address] [address] Social History Tobacco Use Types Packs/Day Years Used Date Smoking Tobacco: Never Smokeless Tobacco: Never Alcohol Use Standard Drinks/Week Comments Yes 0 (1 standard drink = 0.6 oz pur e alcohol) monthly Comments No Sex and Gender Information Value [...] on filedocumented in this encounter Care Teams Die Repair Relationship Specialty Start Date End Date Baltazar Burnham MD [address] [facility] [address] [place] [address] [email or web address] PCP - General 08/08/17 06/04/22 Anna Taylor MD [address] [facility] [address] [place] [phone] [email or web address] PCP - General Family Medicine 06/05/22 05/25/23 Arlet Singh MD, MPH [address] [place] [phone] PCP - General Family Medicine 05/26/23 Cheyenne Oshea MD [address] [place] [address], [facility] [address] [place] [address] [email or web address] Historical LMR Provider 05/23/17 08/12/21 Baltazar Burnham MD [address] [facility] [address] [place] [address] [email or web address] Historical LMR Provider 05/23/17 08/12/21 documented as of this encounter Additional Source Comments The information contained in this document represents components of the legal health record. It is not the complete legal health record.[facility]
--- OUTSIDE RECORDS SUMMARY | 2025-04-17 18:19 | XMS_ITS | Encounter Summary ---
Author Organization [facility] Address [address] [facility] [address] [place] [address] Phone Care Team Providers Care Insole Rounder Name Role Phone Anna Taylor MD Primary Care Provider [phone] Arlet Singh MD, MPH Primary Care Provider + Encounter Details Date Type Department Care Team (Late st Contact Info) Description 08/13/2022 Procedure Pass [facility], [address] [address] Social History Tobacco Use Types Packs/Day Years [...] Author No Risk Indicated 08/13/2022 4:58 PM EST Carol Strange RN * [place] Suicide Severity Rating Scale (Screener/Recent Self-Report) Question Answer Date of Assessment Author 1. Wish to be (Past 1 Month) No 08/13/2022 4:58 PM EST Carmen Vance RN 2. Non-Specific Active Suicidal Thoughts (Past 1 Month) No 08/13/2022 4:58 PM Carmen Sweeney RN 6. Suicidal Behavior (Lifetime) No 08/13/2022 4:58 PM Carmen Sweeney RN documented as of this encounter Plan of Treatment Not on file documented as of this encounter Visit Diagnoses Not on filedocumented in this encounter Care Teams Insole Rounder Relationship Specialty Start Date End Date Anna Taylor MD [email or web address] PCP - General Family Medicine 06/05/22 05/25/23 Arlet Singh MD, MPH [address] [place] [phone] [email or web address] PCP - General Family Medicine 05/26/23 documented as of this encounter Additional Source Comments The information contained in this document represents components of the legal health record. It is not the complete legal health record.[facility]
--- OUTSIDE RECORDS SUMMARY | 2025-04-17 18:19 | XMS_ITS | Clinical Summary ---
Author Organization [address] [facility] Address [address] [place] [address] Phone Care Team Providers Care Enamel Machine Operator Name Role Phone Katheryn Izquierdo Primary Care [...] to allow for permissive hypertension Diabetes mellitus ([facility] V24, [facility] V28) Overview (07/01/2024): Last Assessment & Plan: [...] for a right SI joint injection at [facility]. As she has no back pain, [...] Appt scheduled with Barbara. Referral to [facility] [place] for intensive self management. 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 Overview (07/01/2024): surgical repair age 25 IMO update Other specified hemorrhagic conditions (CMS/[facility] V24) 08/07/2006 Overview (07/01/2024): age 5 Pyelonephritis [...] HISTORICAL DELIVERY; COMMENT: times 2 BUNIONECTOMY PROCEDURE: FL CORRJ HLX VLGS BNCTY SESMDC W/DOUBLE OSTEOTOMY; COMMENT: bilateral OTHER SURGICAL HISTORY PROCEDURE: FL RADIAL KERATOTOMY; COMMENT: lasix surger x 9 [...] V24) 08/07/2006 DX:Other specified hemorrhag ic conditions ([facility]); COMMENT: age 5 Type II or unspecified [...] uncontrolled Diabetes mellitus type II, c ontrolled ([facility] V24, [facility] V28) 11/12/2007 DX:Diabetes mellitus type I I, controlled ([facility]) Esophageal reflux DX:Esophageal reflux Essential hypertension, benign D X:Essential hypertension, benign Lumbar disc herniation 06/16/2012 DX:Lumbar disc herniation Obesity 07/11/2012 DX:Obesity Hypoglycemia DX:Hypoglycemia Vitamin D deficiency DX:Vitamin D deficiency Major depressive disorder DX:[place] or depressive disorder Insomnia DX:Insomnia Otitis externa DX:Otitis 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 steward a Impacted cerumen DX:Impacted cer umen Other seasonal allergic rhinitis DX:Other seasonal allergic rhinitis Cholecystitis DX:Cholecystitis Low back pain DX:Low back pain Neuropathy DX:Neuropathy Severe diabetic hypoglycemia ([facility] V24, [facility] V28) DX:Severe diabetic hypoglyce darleen ([facility]) Seasonal allergic rhinitis 08/22/2022 DX:Se asonal allergic rhinitis Postmenopausal bleeding DX:Postm enopausal bleeding Abnormal weight gain DX:Abnormal weight gain Type 2 diabetes mellitus, co ntrolled ([facility] V24, [facility] V28) 08/22/2022 DX:Type 2 diabetes mellitus , controlled ([facility]) Family History Medical History Relation Name Comments Hypertension Father ulcer,[place], colon polyps at 67, metastatic cancer with [...] 79 08/19/2024 10:07 AM EST Temperature 36.3 C (97.4 F) 08/19/2024 8:18 AM EST Respiratory Rate 20 08/19/2024 10:07 AM EST [...] 06/09/2012, 06/09/2012 Colorectal Cancer Screening: Colonoscopy 07/08/2022 HIV Screening 07/08/2022 Hepatitis C Screening 07/08/2022 Social Influencers of Health Screening 07/08/2022 Diabetes: Annual Urine Albumin-Creatinine Ratio (uACR) 07/18/2022 01/30/2013 Diabetes: Blood Sugar Control Test (HGBA1C) 02/11/2023 08/14/2022 Diabetes: Annual GFR (Glomerular Filtration Rate) 08/14/2023 08/14/2022, 12/06/2020 Hypertension/CHF/CAD Annual BMP Blood Test 08/14/2023 08/14/2022, 12/06/2020 Depression Screening 08/05/2024 COVID-19 Vaccine ( season) 2025 06/07/2023, 06/03/2022, 08/13/2021, Additional history exists Influenza Vaccine (#1) 2025 , 06/07/2023, 05/30/2022, Additional history exists Pneumococcal Vaccine: 50+ Years (3 of 3 - PCV20 or PCV21) 08/13/2026 08/13/2021, 05/27/2017, 08/07/2006, Additional history exists Cholesterol Screening (Lipid Panel) 08/14/2027 08/14/2022 DTaP,Tdap,and Td Vaccines (6 - Td or Tdap) 12/01/2033 12/02/2023, 05/30/2022, 05/30/2022, Additional history exists Zoster Vaccines Completed 06/26/2021, 04/18/2021 HIB Vaccines Aged Out No longer eligi [...] BMP Blood Test abstracted us Historical Provider HEALTH MAINTENANCE Final Result * Hemoglobin A1c (08/14/2022) Hemoglobin A1C 0.0 % Comment:no interpretation, a bstracted Blood Venous blood specimen / Unknown [facility] Provider LAB BLOOD ORDERABLES Sandee l Result * Lipid panel (08/14/2022) [facility] Triglycerides 0 mg/dL Comment:no interpretation, a bstracted Cholesterol 0 mg/dL Comment:no interpretation, a bstracted HDL 0 mg/dL Comment:no interpretation, a bstracted LDL Cholesterol 0 mg/dL Comment:no interpretation, a bstracted Blood Venous blood specimen / Unknown Result [facility] Provider LAB BLOOD ORDERABLES Sandee l Result * Urine Albumin Creatinine Ratio (01/30/2013) [facility] Urine Albumin Creatinine Ratio abstracted Result [facility] Provider HEALTH MAINTENANCE Final Result * Cervical Cancer Screening: HPV (06/09/2012) [facility] Cervical Cancer Screening: HPV no interpretation , abstracted [facility] Provider HEALTH MAINTENANCE Final Result from Last 3 Months or Most Recently Relevant to Health Maintenance Insurance [facility] [employer] PL[employer] [facility] [employer] Care Teams Enamel Machine Operator Relationship Specialty Start Date End Date Katheryn Izquierdo PA [address] [place] [phone] PCP - General 07/09/22
--- OUTSIDE RECORDS SUMMARY | 2025-04-17 18:19 | XMS_ITS | Encounter Summary ---
Author Organization [facility] Address [address] [place] [address] [place] [address] Phone Care Team Providers Care Water Gas Operator Name Role Phone Anna Taylor MD Primary Care Provider + [phone] Arlet Singh MD, MPH Primary Care Provider + Reason for Referral * MRI/CAT Scan - Closed Specialty Diagnoses / Procedures Referred By Contmarybel t Referred To Contact Radiology Diagnoses Radiculopathy, lumbosacral region Left foot drop Procedures MRI Lumbar Spine CHG MRI, LUMBAR SPINE CHG MRI, LUMBAR SPINE COMBO CHG MRI, LUMBAR SPINE CONTRAST Katheryn Izquierdo PA [address] [place] [address] Phone: tel: fax: mailto:alma Referral ID Status Reason Start Date Expiration Date Visits Re quested Visits Authorized [id number] Closed 05/06/2023 08/04/2023 1 1 Encounter Details Date Type Department Care Team (Late st Contact Info) Description 05/07/2023 Transcribe Orders Virtual Department [address] [place] [address] Katheryn Izquierdo PA [address] [place], [place] [phone] rach Radiculopathy, lumbosacral region (Primary Dx); Left foot drop Social History Tobacco Use Types Packs/Day Years [...] on file documented as of this encounter Results * MRI LUMBAR SPINE (NEURO) WITHOUT CONTRAST (06/09/2023 12:48 PM EST) Anatomical Region Laterality Modality L-spine Magnetic Resonan ce 06/10/2023 12:3 6 AM EST Impressions 06/10/2023 4:12 PM EST Multilevel spinal canal stenosis, severe at L4-5, moderate at L3-4, and mild at L2-3. Incidental severe right lateral recess stenosis at L4-5. Multilevel neuroforaminal stenoses, severe at L4-5, severe right and moderate to severe left at L5-S1, moderate at L3-4, and mild at L2-3. Endplate marrow edema at L3-4 and L5-S1, may reflect axial pain generators. Suspected pars defects at L4. Narrative 06/10/2023 4:12 PM EST MRI LUMBAR SPINE (NEURO) WITHOUT CONTRAST TECHNIQUE: MRI LUMBAR SPINE (NEURO) WITHOUT CONTRAST COMPARISON: CT ABDOMEN/PELVIS WITH CONTRAST FINDINGS: ALIGNMENT: 4 mm L3-4 retrolisthesis. 9 mm L4-5 anterolisthesis. MARROW: Heterogeneous marrow signal without marrow replacing lesion. No compression fracture. DISCS: Disc desiccation L2-S1. Endplate marrow edema at L3-4 and L5-S1. CONUS: Normal appearance and terminates at T12-L1. PARASPINAL SOFT TISSUES: Mild to moderate posterior paraspinal muscle atrophy. FINDINGS BY LEVEL: T12-L1:No spinal canal or neuroforaminal stenosis. L1-2: Diffuse disc bulge eccentric to the left, facet arthropathy, and thickening of ligamentum flavum. No spinal canal or neuroforaminal stenosis. L2-3: Diffuse disc bulge, facet arthropathy, and thickening of ligamentum flavum. No spinal canal stenosis. Mild neuroforaminal stenosis. L3-4: Diffuse disc bulge, facet arthropathy, and thickening of ligamentum flavum. Moderate spinal canal stenosis. Moderate neuroforaminal stenosis. L4-5: Diffuse disc bulge, disc uncovering, facet arthropathy, and thickening of ligamentum flavum. Severe spinal canal stenosis. Severe right lateral recess stenosis. Severe neuroforaminal stenosis. L5-S1: Diffuse disc bulge, facet arthropathy, and thickening of ligamentum flavum. No spinal canal stenosis. Severe right and moderate to severe left neuroforaminal stenosis. Procedure Note Clint Trejo MD - 06/10/2023 MRI LUMBAR SPINE (NEURO) WITHOUT CONTRAST TECHNIQUE: MRI LUMBAR SPINE (NEURO) WITHOUT CONTRAST COMPARISON: CT ABDOMEN/PELVIS WITH CONTRAST FINDINGS: ALIGNMENT: 4 mm L3-4 retrolisthesis. 9 mm L4-5 anterolisthesis. MARROW: Heterogeneous marrow signal without marrow replacing lesion. Nocompression fracture. DISCS: Disc desiccation L2-S1. Endplate marrow edema at L3-4 and L5-S1. CONUS: Normal appearance and terminates at T12-L1. PARASPINAL SOFT TISSUES: Mild to moderate posterior paraspinal muscleatrophy. FINDINGS BY LEVEL: T12-L1:No spinal canal or neuroforaminal stenosis. L1-2: Diffuse disc bulge eccentric to the left, facet arthropathy, andthickening of ligamentum flavum. No spinal canal or neuroforaminalstenosis. L2-3: Diffuse disc bulge, facet arthropathy, and thickening of ligamentumflavum. No spinal canal stenosis. Mild neuroforaminal stenosis. L3-4: Diffuse disc bulge, facet arthropathy, and thickening of ligamentumflavum. Moderate spinal canal stenosis. Moderate neuroforaminalstenosis. L4-5: Diffuse disc bulge, disc uncovering, facet arthropathy, andthickening of ligamentum flavum. Severe spinal canal stenosis. Severeright lateral recess stenosis. Severe neuroforaminal stenosis. L5-S1: Diffuse disc bulge, facet arthropathy, and thickening of ligamentumflavum. No spinal canal stenosis. Severe right and moderate to severe leftneuroforaminal stenosis. IMPRESSION: Multilevel spinal canal stenosis, severe at L4-5, moderate at L3-4, andmild at L2-3. Incidental severe right lateral recess stenosis at L4-5. Multilevel neuroforaminal stenoses, severe at L4-5, severe right andmoderate to severe left at L5-S1, moderate at L3-4, and mild at L2-3. Endplate marrow edema at L3-4 and L5-S1, may reflect axial paingenerators. Suspected pars defects at L4. Katheryn CERRATO Frances MR XSPECIALTY Final Result documented in this encounter Visit Diagnoses Diagnosis Radiculopathy, lumbosacral region- Primary Thoracic or lumbosacral neuritis or radiculitis, unspecified Left foot drop Other acquired deformity of ankle and foot Radiculopathy, lumbosacral region Thoracic or lumbosacral neuritis or radiculitis, unspecified Left foot drop Other acquired deformity of ankle and foot documented in this encounter Care Teams Water Gas Operator Relationship Specialty Start Date End Date Anna Taylor MD [email or web address] PCP - General Family Medicine 06/05/22 05/25/23 Arlet Singh MD, MPH [address] [place] [phone] [email or web address] PCP - General Family Medicine 05/26/23 documented as of this encounter Additional Source Comments The information contained in this document represents components of the legal health record. It is not the complete legal health record.[facility]
--- OUTSIDE RECORDS SUMMARY | 2025-04-17 18:19 | XMS_ITS | Encounter Summary ---
Author Organization [facility] Address [address] [facility] [address] [place] [address] Phone Care Team Providers Care Retail Planning Manager Name Role Phone Anna Taylor MD Primary Care Provider [phone] Arlet Singh MD, MPH Primary Care Provider + Encounter Details Date Type Department Care Team (Late st Contact Info) Description 08/13/2022 Procedure Pass [facility], Ct Scan - [address] [address] Social History Tobacco Use Types Packs/Day Years [...] 4:58 PM EST Carol Strange RN * [place] Suicide Severity Rating Scale (Screener/Recent Self-Report) Question [...] on filedocumented in this encounter Care Teams Retail Planning Manager Relationship Specialty Start Date End Date Anna Taylor MD [email or web address] PCP - General Family Medicine 06/05/22 05/25/23 Arlet Singh MD, MPH [address] [place] [phone] [email or web address] PCP - General Family Medicine 05/26/23 documented as of this encounter Additional Source Comments The information contained in this document represents components of the legal health record. It is not the complete legal health record.[facility]
--- OUTSIDE RECORDS SUMMARY | 2025-04-17 18:19 | XMS_ITS | Encounter Summary ---
Author Organization [facility] Address [address] [place] [address] [place] [phone] Phone Care Team Providers Care Mortician Supplies Sales Representative Name Role Phone Anna Taylor MD Primary Care Provider [phone] Arlet Singh MD, MPH Primary Care Provider + Encounter Details Date Type Department Care Team (Late st Contact Info) Description 08/14/2022 Procedure Pass [facility]oscopy Admitting Dept Virtual Department [address] [place] [address] Social History Tobacco Use Types Packs/Day Years [...] on filedocumented in this encounter Care Teams Mortician Supplies Sales Representative Relationship Specialty Start Date End Date Anna Taylor MD [email or web address] PCP - General Family Medicine 06/05/22 05/25/23 Arlet Singh MD, MPH [address] [place], [place] [phone] [email or web address] PCP - General Family Medicine 05/26/23 documented as of this encounter Additional Source Comments The information contained in this document represents components of the legal health record. It is not the complete legal health record.[facility]
--- OUTSIDE RECORDS SUMMARY | 2025-04-17 18:19 | XMS_ITS | Encounter Summary ---
Author Organization [facility] Address [address] [facility] [address] [place] [address] Phone Care Team Providers Care Glass Unloading Equipment Tender Name Role Phone Anna Taylor MD Primary Care Provider [phone] Arlet Singh MD, MPH Primary Care Provider + Encounter Details Date Type Department Care Team (Late st Contact Info) Description 07/27/2022 Procedure Pass [facility], Ct Scan - [address] [address] Social History Tobacco Use Types Packs/Day Years [...] 07/27/2022 10:51 AM Krista Noe RN * [place] Suicide Severity Rating Scale (Screener/Recent Self-Report) Question [...] on filedocumented in this encounter Care Teams Glass Unloading Equipment Tender Relationship Specialty Start Date End Date Anna Taylor MD [email or web address] PCP - General Family Medicine 06/05/22 05/25/23 Arlet Singh MD, MPH [address] [place] [phone] [email or web address] PCP - General Family Medicine 05/26/23 documented as of this encounter Additional Source Comments The information contained in this document represents components of the legal health record. It is not the complete legal health record.[facility]
--- OUTSIDE RECORDS SUMMARY | 2025-04-17 18:19 | XMS_ITS | Encounter Summary ---
Author Organization [facility] Address [address] [facility] [address] [place] [address] Phone Care Team Providers Care Heating And Ventilating Drafter Name Role Phone Cheyenne Oshea MD Unavailable [phone] Baltazar Burnham MD Unavailable Baltazar Burnham MD Primary Care Provider [phone] Anna Taylor MD Primary Care Provider [phone] Arlet Singh MD, MPH Primary Care Provider + Encounter Details Date Type Department Care Team (Late st Contact Info) Description 01/30/2021 Procedure Pass [facility] Endoscopy Admitting Dept Virtual Department [address] [place] [address] Social History Tobacco Use Types Packs/Day [...] on filedocumented in this encounter Care Teams Heating And Ventilating Drafter Relationship Specialty Start Date End Date Baltazar Burnham MD [address] [facility] [address] [place] [address] [email or web address] PCP - General 08/08/17 06/04/22 Anna Taylor MD [address] [facility] [address] [place] [phone] PCP - General Family Medicine 06/05/22 05/25/23 Arlet Singh MD, MPH [address] [place] [phone] PCP - General Family Medicine 05/26/23 Cheyenne Oshea MD [address] [place] [address], [facility] [address] [place] [address] [email or web address] Historical LMR Provider 05/23/17 08/12/21 Baltazar Burnham MD [address] [facility] [address] [place] [address] [email or web address] Historical LMR Provider 05/23/17 08/12/21 documented as of this encounter Additional Source Comments The information contained in this document represents components of the legal health record. It is not the complete legal health record.[facility]
--- OUTSIDE RECORDS SUMMARY | 2025-04-17 18:19 | XMS_ITS | Encounter Summary ---
Author Organization [facility] Address [address] [facility] [address] [place] [address] Phone Care Team Providers Care Financial Dealers Name Role Phone Cheyenne Oshea MD Unavailable [phone] Baltazar Burnham MD Unavailable Baltazar Burnham MD Primary Care Provider [phone] Anna Taylor MD Primary Care Provider [phone] Arlet Singh MD, MPH Primary Care Provider + Reason for Referral * MRI/CAT Scan - Closed Specialty Diagnoses / Procedures Referred By Contac t Referred To Contact Radiology Diagnoses Abdominal pain, unspecified abdominal location Unintended weight loss Procedures CT Abdomen/Pelvis CHG CT SCAN,ABDOMENT AND PELVIS,W CONTRAST CHG CT SCAN,ABDOMENT AND PELVIS,COMBO CHG CT SCAN,ABDOMENT AND PELVIS,W/O CONTRAST Terry Self MD Phone: tel: fax: [email or web address] Referral ID Status Reason Start Date Expiration Date Visits Re quested Visits Authorized [id number] Closed 01/30/2021 04/30/2021 1 1 Encounter Details Date Type Department Care Team (Latest Contact Info) Description 01/30/2021 Transcribe Orders [facility] [address] [place], [place] [id number] Terry Self MD [address] [place] [phone] [email or web address] Abdominal pain, unspecified abdominal location (Primary Dx); Unintended weight loss Social History Tobacco Use Types Packs/Day Years [...] documented as of this encounter Results * CT ABDOMEN/PELVIS WITH CONTRAST (03/06/2021 3:09 PM EDT) Anatomical Region Laterality Modality Abdomen, Pelvis Computed Tomogra phy 03/06/2021 4:03 PM EDT Impressions 03/06/2021 4:22 PM EDT No acute inflammatory changes or clear neoplastic process to account for the symptomatology. Gastric bypass with hiatal hernia. Subcutaneous abdominal wall soft tissue changes presumably related to injection-correlate clinically. Narrative 03/06/2021 4:22 PM EDT HISTORY: Abdominal pain and unintended weight loss COMPARISON: None TECHNIQUE: After the administration of oral and intravenous contrast, multidetector CT is obtained from dome of the liver through the inferior pubic rami. Sagittal and coronal reformats generated. Automated exposure control utilized. FINDINGS: Lung bases: Sub-4 mm pulmonary nodules which no follow-up is recommended absent a history of malignancy or strong smoking history. Liver and spleen: There is a dense eggshell type calcification with some peripheral hypodensity in the dome of the right hepatic lobe. Findings suggest chronicity, possibly old infectious or post-traumatic. Small inferior splenule. Spleen otherwise unremarkable. Biliary tree and pancreas: Status post cholecystectomy. No biliary dilatation. Pancreas unremarkable. Adrenals and : Mild diffuse adrenal thickening. No worrisome masses. No renal findings of concern. Uterus present. No worrisome adnexal masses. No bladder finding of concern. Bowel: Hiatal hernia. Status post gastric bypass. No evidence of bowel obstruction. No terminal ileal finding of concern. Appendix unremarkable. Scattered diverticula without evidence of diverticulitis or colitis. Nodes: No adenopathy detected. Vascular: No findings of concern. Incidental superiorly arising right accessory renal artery. Soft tissues: No ascites, inflammatory change or fluid collection in the intraperitoneal space. There are areas of abnormal thickening in the subcutaneous tissues over the right abdominal wall, correlate clinically with injection history. Bones: Degenerative change in the lower lumbar spine and sacrum. No bony destructive lesions identified. Advanced facet arthropathy leads to anterolisthesis of L4 on L5 and narrowing of the left foraminal exit. Procedure Note William Rollins MD - 03/06/2021 HISTORY: Abdominal pain and unintended weight loss COMPARISON: None TECHNIQUE: After the administration of oral and intravenous contrast,multidetector CT is obtained from dome of the liver through the inferiorpubic rami. Sagittal and coronal reformats generated. Automated exposurecontrol utilized. FINDINGS: Lung bases: Sub-4 mm pulmonary nodules which no follow-up is recommendedabsent a history of malignancy or strong smoking history. Liver and spleen: There is a dense eggshell type calcification with someperipheral hypodensity in the dome of the right hepatic lobe. Findingssuggest chronicity, possibly old infectious or post-traumatic. Smallinferior splenule. Spleen otherwise unremarkable. Biliary tree and pancreas: Status post cholecystectomy. No biliarydilatation. Pancreas unremarkable. Adrenals and : Mild diffuse adrenal thickening. No worrisome masses. Norenal findings of concern. Uterus present. No worrisome adnexal masses. Nobladder finding of concern. Bowel: Hiatal hernia. Status post gastric bypass. No evidence of bowelobstruction. No terminal ileal finding of concern. Appendix unremarkable.Scattered diverticula without evidence of diverticulitis or colitis. Nodes: No adenopathy detected. Vascular: No findings of concern. Incidental superiorly arising rightaccessory renal artery. Soft tissues: No ascites, inflammatory change or fluid collection in theintraperitoneal space. There are areas of abnormal thickening in thesubcutaneous tissues over the right abdominal wall, correlate clinicallywith injection history. Bones: Degenerative change in the lower lumbar spine and sacrum. No bonydestructive lesions identified. Advanced facet arthropathy leads toanterolisthesis of L4 on L5 and narrowing of the left foraminal exit. IMPRESSION: No acute inflammatory changes or clear neoplastic process to account forthe symptomatology. Gastric bypass with hiatal hernia. Subcutaneousabdominal wall soft tissue changes presumably related toinjection-correlate clinically. Terry Self MD IMG CT ABD/PELVIS Final Result documented in this encounter Visit Diagnoses Diagnosis Abdominal pain, unspecified abdominal location- Primary Unintended weight loss Abdominal pain, unspecified abdominal location Unintended weight loss documented in this encounter Care Teams Financial Dealers Relationship Specialty Start Date End Date Baltazar Burnham MD [address] [place] [address] [email or web address] PCP - General 08/08/17 06/04/22 Anna Taylor MD [address] [place] [address] [email or web address] PCP - General Family Medicine 06/05/22 05/25/23 Arlet Singh MD, MPH [address] [place] [phone] [email or web address] PCP - General Family Medicine 05/26/23 Cheyenne Oshea MD [address] [place] [address], [facility] [address] [place] [address] [email or web address] Historical LMR Provider 05/23/17 08/12/21 Baltazar Burnham MD [address] [place] [address] [email or web address] Historical LMR Provider 05/23/17 08/12/21 documented as of this encounter Additional Source Comments The information contained in this document represents components of the legal health record. It is not the complete legal health record.[facility]
--- OUTSIDE RECORDS SUMMARY | 2025-04-17 18:19 | XMS_ITS | Encounter Summary ---
Author Organization [facility] Address [address] [facility] [address] [place] [address] Phone Care Team Providers Care Breaker Table Worker Name Role Phone Anna Taylor MD Primary Care Provider [phone] Arlet Singh MD, MPH Primary Care Provider + Encounter Details Date Type Department Care Team (Late st Contact Info) Description 08/13/2022 Procedure Pass [facility], Ct Scan - [address] [address] Social History Tobacco Use Types Packs/Day Years [...] 4:58 PM EST Carol Strange RN * Dickson Suicide Severity Rating Scale (Screener/Recent Self-Report) Question [...] on filedocumented in this encounter Care Teams Breaker Table Worker Relationship Specialty Start Date End Date Anna Taylor MD [email or web address] PCP - General Family Medicine 06/05/22 05/25/23 Arlet Singh MD, MPH [address] [place] [id number] [email or web address] PCP - General Family Medicine 05/26/23 documented as of this encounter Additional Source Comments The information contained in this document represents components of the legal health record. It is not the complete legal health record.[facility]
--- OUTSIDE RECORDS SUMMARY | 2025-04-17 18:19 | XMS_ITS | Encounter Summary ---
Author Organization [facility] Address [address] [facility] [address] [place] [address] Phone Care Team Providers Care Furniture Lumber Production Worker Name Role Phone Anna Taylor MD Primary Care Provider [phone] Arlet Singh MD, MPH Primary Care Provider + Encounter Details Date Type Department Care Team (Late st Contact Info) Description 06/19/2022 Ancillary Orders Non-Invasive Cardiology [address] [place] [address] Katheryn Izquierdo PA [address] [place], [place] [phone] rach Other form of dyspnea Social History Tobacco Use Types Packs/Day Years [...] documented as of this encounter Results * NC Stress Result for Nuclear Stress Test (06/19/2022 11:22 AM EST) Max BP Systolic 130 mmHg [facility] Max BP Diastolic 80 mmHg [facility] Max HR 110 BPM [facility] Resting HR 92 BPM [facility] Resting BP Systolic 130 mmHg [facility] Resting BP Diastolic 80 mmHg [facility] Peak METS 1.0 METS [facility] Peak HR 105 BPM [facility] Anatomical Region Laterality Modality Heart Other 06/19/2022 10:2 5 AM EST 06/19/2022 11:22 AM EST Narrative 06/22/2022 9:44 AM EST I agree with the report above. Price Huynh MD Response to Stress The patient exercised for minutes seconds, achieving 1.0 METS at peak exercise. Baseline blood pressure was 130/80 mmHg, and baseline heart rate was 92 bpm. The patient achieved a peak heart rate of 105 bpm, which is% of their maximum predicted heart rate. 0.4 mg Regadenoson (lexiscan) given IV push over 10 seconds as per protocol immediately followed by injection of Tc99m Sestamibi by [facility] pulmonary function technologist. Test was done as a pharmacologic test due to patient reporting unable to safely walk on treadmill, which is a medical contradiction to do exercise. 1. EKG - Baseline EKG showed sinus rhythm 84 bpm, PVC's, and non-specific ST abnormalities. After injection of lexiscan, there were no ischemic EKG changes. 2. SYMPTOMS - No chest pain. After injection of lexiscan, patient denied any s/e. 3. PHYSIOLOGY - Resting HR was 94 bpm. After Lexiscan injection, HR 110 bpm. 4. ARRHYTHMIAS - Frequent isolated PVC's and ventricular couplets. Conclusion - There were no ischemic EKG changes without symptoms concerning for angina during EKG portion of pharmacological testing. Nuclear images pending and will be reported separately. See attached stress report for full details. Katie Ling DNP, INSTRUMENT MAKER AND REPAIRER-BC with Dr. Huynh . us Katheryn CERRATO CV NM CARDIAC Fi nal Result documented in this encounter Visit Diagnoses Diagnosis Other form of dyspnea Other form of dyspnea documented in this encounter Care Teams Furniture Lumber Production Worker Relationship Specialty Start Date End Date Anna Taylor MD [email or web address] PCP - General Family Medicine 06/05/22 05/25/23 Arlet Singh MD, MPH [address] [place] [id number] [email or web address] PCP - General Family Medicine 05/26/23 documented as of this encounter Additional Source Comments The information contained in this document represents components of the legal health record. It is not the complete legal health record.[facility]
--- OUTSIDE RECORDS SUMMARY | 2025-04-17 18:19 | XMS_ITS | Encounter Summary ---
Author Organization [facility] Address [address] [facility] [address] [place] [address] Phone Care Team Providers Care Host/Hostess Head Name Role Phone Baltazar Burnham MD Primary Care Provider Anna Taylor MD Primary Care Provider [phone] Arlet Singh MD, MPH Primary Care Provider + Reason for Referral * MRI/CAT Scan - Closed Specialty Diagnoses / Procedures Referred By Contmarybel t Referred To Contact Radiology Diagnoses Other form of dyspnea Procedures NC Myocardial Perfusion Exercise Multiple CHG MYOCARDIAL SPECT MULTIPLE STUDIES Katheryn Izquierdo PA Phone: tel: fax: mailto:[email or web address] Referral ID Status Reason Start Date Expiration Date Visits Re quested Visits Authorized [id number] Closed 05/31/2022 08/28/2022 4 4 Encounter Details Date Type Department Care Team (Late st Contact Info) Description 06/01/2022 Transcribe Orders Virtual Department [address] [place] [address] Katheryn Izquierdo PA [address] [place], [place] [phone] rach Other form of dyspnea (Primary Dx) Social History Tobacco Use Types Packs/Day Years [...] as of this encounter Results * NC Myocardial Perfusion Exercise Multiple (06/19/2022 11:39 AM EST) Anatomical Region Laterality Modality Heart, Vascular Nuclear Medicine 06/20/2022 9:30 AM EST Impressions 06/20/2022 9:39 AM EST Scintigraphic evidence of mild anterior wall ischemia suggesting an LAD territory lesion. No evidence of infarct. LVEF calculated at approximately 63%. POS [id number] Narrative 06/20/2022 9:39 AM EST COMPARISON: None DOSE: 8.3 mCi of technetium 99m sestamibi during pharmacologic stress and 24.4 mCi of technetium 99m sestamibi subsequently in the day at rest. SPECT images were obtained, gated at stress. FINDINGS: Left ventricular cavity size is felt to be within normal limits. On the stress portion of the examination there is minimally diminished tracer uptake in the mid and basal aspect of the anterior wall, apparently normalizing at rest. No additional fixed or reversible perfusion defects are identified. No focal abnormality of myocardial thickening was detected. The LVEF was calculated at approximately 63% and the TID ratio at 1.15. Procedure Note Terry Roa MD - 06/20/2022 COMPARISON: None DOSE: 8.3 mCi of technetium 99m sestamibi during pharmacologic stress and24.4 mCi of technetium 99m sestamibi subsequently in the day at rest.SPECT images were obtained, gated at stress. FINDINGS: Left ventricular cavity size is felt to be within normal limits. On thestress portion of the examination there is minimally diminished traceruptake in the mid and basal aspect of the anterior wall, apparentlynormalizing at rest. No additional fixed or reversible perfusion defectsare identified. No focal abnormality of myocardial thickening wasdetected. The LVEF was calculated at approximately 63% and the TID ratioat 1.15. IMPRESSION: Scintigraphic evidence of mild anterior wall ischemia suggesting an LADterritory lesion. No evidence of infarct. LVEF calculated at [id number]%. POS [id number] us Katheryn CERRATO CV NM CARDIAC Fi nal Result documented in this encounter Visit Diagnoses Diagnosis Other form of dyspnea- Primary Other form of dyspnea documented in this encounter Care Teams Host/Hostess Head Relationship Specialty Start Date End Date Baltazar Burnham MD [address] [place] [id number] [email or web address] PCP - General 08/08/17 06/04/22 Anna Taylor MD [address] [place] [address] [email or web address] PCP - General Family Medicine 06/05/22 05/25/23 Arlet Singh MD, MPH [address] [place] [id number] PCP - General Family Medicine 05/26/23 documented as of this encounter Additional Source Comments The information contained in this document represents components of the legal health record. It is not the complete legal health record.[facility]
--- OUTSIDE RECORDS SUMMARY | 2025-04-17 18:19 | XMS_ITS | Clinical Summary ---
Author Organization [facility] Address [address] [place] [phone] Phone Care Team Providers Care Emt Dispatcher Name Role Phone Arlet Singh MD, MPH Primary Care Provider + Allergies No known active allergies Medications atorvastatin (LIPITOR) 10 MG tablet Take 10 mg by mouth daily. Active insulin glargine,hum.rec .anlog (LANTUS SOLOSTAR U-100 INSULIN SUBQ) Inject 35 Units under the skin nightly at bedtime. Active lisinopril (PRINIVIL,ZESTRI L) 40 MG tablet Take 40 mg by mouth daily. Active metFORMIN (GLUCOPHAGE) 850 MG tablet Take 1,700 mg by mouth daily with breakfast. Active omeprazole (PRILOSEC) 20 MG capsule Take 20 mg by mouth daily. Active buPROPion (WELLBUTRIN SR) 150 MG SR 12 hr tablet Take 150 mg by mouth 2 (two) times a day. Active venlafaxine HCl (EFFEXOR XR ORAL) Take 1 tablet by mouth daily. Active traZODone (DESYREL) 100 MG tablet Take 200 mg by mouth nightly at bedtime. Active ferrous furamate 324 mg (106 mg elemental) Tab Take 324 mg by mouth 2 (two) times a day. Active hyoscyamine (ANASPAZ,LEVSIN) 0.125 mg tablet Take 0.25 mg by mouth 3 (three) times a day as needed for cramping (specific location in comments). Active cholecalciferol (VITAMIN D3) 25 MCG (1,000 unit) tablet 1 tablet Active dicyclomine (BENTYL) 10 MG capsule Take by mouth 3 (three) times a day as needed. 08/16/19 Active TRULICITY 1.5 mg/0.5 mL subcutaneous injection Inject 1.5 mg under the skin every 7 days. On Saturdays08/26/19 Active FREESTYLE PEEWEE 2 READER USE DIRECTED TO CHECK BLOOD SUGARS FOUR TIMES DAILY. 07/11/20 Active FREESTYLE PEEWEE 2 SENSOR kit as directed. 06/16/20 Active gabapentin (NEURONTIN) 600 MG tablet 1 tablet Active hydroCHLOROthiaz darwin (HYDRODIURIL) 25 MG tablet 08/23/19 Active loratadine (CLARITIN) 10 mg tablet Take 10 mg by mouth daily. 05/28/20 Active metoprolol succinate (TOPROL-XL) 25 MG 24 hr tablet 08/23/19 Active nitroglycerin (NITROSTAT) 0.[address] 1 TABLET UNDER TONGUE NEEDED FOR CHEST PAIN. MAY REPEAT EVERY 5 MINUTES. MAX 3 DOSES. 07/03/20 Active HUMALOG KWIKPEN INSULIN 100 unit/mL kwikpen INJECT 5 TO 10 UNITS SUBCUTANEOUSLY BEFORE EACH MEAL 08/17/19 Active Active Problems Problem Noted Date Diagnosed Date Microcytic hypochromic anemia 09/11/2022 Transient neurologic deficit 08/13/2022 Assessment & Plan (08/13/2022 7:31 PM EST): Patient by report has had episodes over [...] until after MRI -Check A1c and TSH Diabetes mellitus Assessment & Plan (08/13/2022 7:32 PM EST): Continue Lantus as slightly decreased dose in the hospital, hold Glucophage -Basal bolus insulin, sliding scale -Check A1c Hyperlipidemia Assessment & Plan (08/13/2022 7:32 PM EST): Continue statin, check lipid panel Hypertensive disorder Assessment & Plan (08/13/2022 7:32 PM EST): Hold lisinopril to allow for permissive hypertension Iron deficiency anemia due to chronic blood loss Assessment & Plan (08/13/2022 7:33 PM EST): Patient is status post gastric bypass and apparently may not of been absorbing iron, appears to have significant iron deficiency anemia with low MCV, also complained of dark and tarry stool, she is undergoing outpatient work-up with EGD scheduled next month -Follow CBC -GI consult, n.p.o. after midnight -Check iron studies -Continue PPI Family History Medical History Relation Comments CV disease Father 2 Cancer Father 2 Diabetes mellitus Mother 2 Relation Status Comments Father 1 Father 2 Mother 1 Mother 2 Social History Tobacco Use Types Packs/Day Years Used Date Smoking Tobacco: Never Smokeless Tobacco: Never Tobacco Cessation:Counseling Given: Not Answered Alcohol Use Standard Drinks/Week Comments Yes 5 [...] 09/03/2022 Are you denied basic needs s [facility] as food, clothing, or medical care? No [...] Orientation Straight 08/13/2022 5: 01 PM EST Last Filed Vital Signs Vital Sign Reading Time Taken Comments Blood Pressure 99/58 09/03/2022 9:36 AM EST Pulse 63 09/03/2022 9:36 AM EST Temperature 36 C (96.8 F) 09/03/2022 9:22 AM EST Respiratory Rate 16 09/03/2022 9:36 AM EST Oxygen Saturation 97% 09/03/2022 9:36 AM EST Inhaled Oxygen Concentration - - Weight 74.8 kg (165 lb) 06/07/2023 4:25 PM EDT Height 165.1 cm (5' 5 ) 06/07/2023 4:25 PM EDT Body Mass Index 27.46 06/07/2023 4:25 PM EDT Plan of Treatment Health Maintenance Due Date Last Done Comments BLOOD PRESSURE 1965 DEPRESSION SCREENING 1978 HEPATITIS C SCREENING 1984 HIV ONE-TIME SCREENING (18-65 YEARS) 1984 MAMMOGRAM 2006 COLOGUARD 2011 FIT TEST 2011 FOBT 2011 SIGMOIDOSCOPY 2011 VIRTUAL COLONOSCOPY 2011 DIABETIC EYE EXAM 08/13/2022 HEMOGLOBIN A1C 02/11/2023 08/14/2022 CREATININE LEVEL 08/14/2023 08/14/2022, 04/2023, 07/27/2022, Additional history exists POTASSIUM LEVEL 08/14/2023 08/14/2022, 04/2023, 07/27/2022, Additional history exists INFLUENZA VACCINE (#1) 2025 , 05/23/2021, 04/16/2021, Additional history exists COVID-19 VACCINE ( season) 2025 06/03/2022, 08/13/2021, 12/06/2020, Additional history exists PAP SMEAR 05/06/2026 05/06/2023 PNEUMOCOCCAL VACCINES (50+ years) (3 of 3 - PCV20 or PCV21) 08/13/2026 08/13/2021, 05/27/2017, 08/07/2006 COLONOSCOPY 01/30/2031 01/30/2021 COLORECTAL CANCER SCREENING 01/30/2031 Adult Td,Tdap Booster 05/30/2032 05/30/2022 , 06/09/2012, 08/07/2006 ZOSTER VACCINES Completed 06/26/2021, 04/18/2021 SMOKING STATUS SCREENING (Once After 26 Yrs) Completed 09/03/2022 HEPATITIS A VACCINES Aged Out No long er eligible based on patient's age to complete this topic HIB VACCINES Aged Out No longer eligi ble based on patient's age to complete this topic MENINGOCOCCAL VACCINES (ACWY) Aged Out No longer eligible based on patient's age to complete this topic MENINGOCOCCAL VACCINES (B) Aged Out N o longer eligible based on patient's age to complete this topic Medical Devices Not on file Procedures Procedure Name Priority Date/Time Associated Diagnosis Comments PAP TEST Routine 05/06/2023 12:00 AM EDT HEMOGLOBIN A1C Routine 08/14/2022 5:26 AM EST BASIC METABOLIC PANEL Routine 08/14/2022 5:26 AM EST ENDOSCOPY, COLON 01/30/2021 7:49 AM EDT from Last 3 Months or Most Recently Relevant to Health Maintenance Results * Pap Test (05/06/2023 12:00 AM EDT) 05/06/2023 05/07/2023 8:4 0 AM EDT Narrative SEE NARRATIVE - 05/08/2023 2:55 PM EDT [address] [address] Aeronautical Engineering Technologist: Ira Matt MD [employer] Cytology Report FINAL DIAGNOSIS A. PAP SMEAR (SUREPATH) CE: SPECIMEN ADEQUACY: Satisfactory for evaluation; transformation zone present. INTERPRETATION: NEGATIVE FOR INTRAEPITHELIAL LESION OR MALIGNANCY. DIAGNOSIS:Atrophy. Electronically Signed Out By: ABBE Ferris(ASCP) The Pap test is a screening test primarily for squamous cancers and precursors and has associated false-negative and false-positive results. New technologies such as liquid-based preparations may decrease but will not eliminate all false-negative results. Regular sampling and follow-up of unexplained clinical signs and symptoms are recommended to minimize false negative results. PROCEDURES/ADDENDA HPV Testing (Requested) Ordered Date: 05/07/2023 A. PAP SMEAR (SUREPATH) CE: Human Papilloma Virus Test NEGATIVE for high-risk Human Papilloma Virus types 16, 18, 45 and the Other high risk probe set (Includes 31, 33, 35, 39, 51, 52, 56, 58, 59, 66, 68) Note: Testing performed by [id number] [email or web address] HR-HPV analysis. Clinical correlation is advised. This HPV test was performed at [facility], [address] [place] [address]. This test has been FDA approved for [employer] cervical cytology specimens. The accuracy and precision of this test for all other specimen sources has been verified in the Cytopathology Laboratory of the [facility] and has not been cleared or approved by the U.S. Food and Drug Administration. Clinical correlation is advised. CLINICAL HISTORY Date of Last Menstrual Period: Not Provided Menstrual History: Unknown Other Clinical Conditions: Screening Pap SPECIMEN SOURCE A: PAP SMEAR (SUREPATH) CE Patient Name: YARELY CONDE : 1965 (Age: 57) Sex: F Institution: [facility] Location: [facility] Date of Collection: 05/06/2023 Date of Reported: 05/08/2023 14:55 Results to: Katheryn Izquierdo Katheryn CERRATO CYTOLOGY ORDERABLE S Final Result Performing Organization Address City/[facility] Co de Phone Number SEE NARRATIVE * (ABNORMAL) Hemoglobin A1c (08/14/2022 5:26 AM EST) HEMOGLOBIN A1C 7.7(H) 4.3 - 5.8 % [facility] Blood 08/14/2022 5:26 AM EST 08/14/2022 7:22 AM EST William Montoya MD LAB BLOOD ORDERABLES Final Result Performing Organization Address City/[facility]/ZIP Co de Phone Number [address] [address] * (ABNORMAL) Basic metabolic panel (08/14/2022 5:26 AM EST) SODIUM 140 133 - 146 mmol/L [facility] CHLORIDE 104 96 - 108 mmol/L [facility] POTASSIUM 3.7 3.3 - 5.1 mmol/L [facility] CO2 27 21 - 35 mmol/L [facility] BUN 15 6 - 19 mg/dL [facility] CREATININE 0.80 0.5 - 1.5 mg/dL [facility] GLUCOSE 113(H) 70 - 99 mg/dL [facility] CALCIUM 8.9 8.4 - 10.3 mg/dL [facility] EGFR 86 >59 mL/min/1.7 3m2 [facility] Comment:Estimated glomerular filtration rate calculated using the CKD-EPI refit equation. ANION GAP 13 10 - 20 mmol/L [facility] Blood 08/14/2022 5:26 AM EST 08/14/2022 6:17 AM EST William Montoya MD LAB BLOOD ORDERABLES Final Result Performing Organization Address [facility]/ZIP Co de Phone Number [address] [address] * ENDOSCOPY, COLON (01/30/2021 7:49 AM EDT) Narrative Transcriptions Jason Hair MD - 01/30/2021 7:49 AM EDT Patient Name: Yarely Conde Attending MD:: JASON HAIR MD Procedure Date: 01/30/2021 7:49 AM Date of : 1965 Age: 55 Admit Type: Outpatient Gender: Female Room: [facility] Referring MD: Baltazar Burnham MD Exam Type: Colonoscopy Indications: Generalized abdominal pain, Weight loss, Incidental constipation noted Medications: Monitored Anesthesia Care Procedure: Informed consent was obtained from the patient after discussion of the indications, limitations, alternatives, benefits, and risks of the procedure. Risks specifically discussed include but are not limited to medication reactions, missed lesions, bleeding, perforation, or the need for emergentsurgery. Throughout the procedure, the patient's bloodpressure, pulse, end-tidal CO2, and oxygen saturations were monitored continuously. The Olympus pediatric variable [id number]-[id number] #4 was introduced through the anus and advanced tothe cecum, identified by the appendiceal orifice,ileocecal valve and palpation. The colonoscopy was somewhat difficult due to a redundant colon. Successful completion of the procedure was aided by applying abdominal pressure. The patient tolerated theprocedure fairly well. The quality of the bowel preparationwas adequate. Complications: No immediate complications. Estimated blood loss:None. Findings: The perianal and digital rectal examinations were normal. Pertinent negatives include no palpablerectal lesions. The hepatic flexure and ascending colon weremoderately redundant. Retroflexion in the right colon was performed. The exam was otherwise without abnormality on direct and retroflexion views. Impression: - Redundant colon. - The examination was otherwise normal on direct and retroflexion views. - No specimens collected. Recommendation: - Repeat colonoscopy in 10 years for screeningpurposes. - Perform a CT scan (computed tomography) of abdomen with contrast and pelvis with contrast atappointment to be scheduled. JASON HAIR MD 01/30/2021 8:10:54 AM This report has been signed electronically. Number of Addenda: 0 Note Initiated On: 01/30/2021 7:49 AM Procedure Code(s): --- Professional --- 92357, Colonoscopy, flexible; diagnostic, including collection of specimen(s) by brushing or washing, when performed (separateprocedure) --- Technical --- 32408, Colonoscopy, flexible; diagnostic, including collection of specimen(s) by brushing or washing, when performed (separateprocedure) Diagnosis Code(s): --- Professional --- R10.84, Generalized abdominal pain R63.4, Abnormal weight loss Q43.8, Other specified congenital malformations of intestine --- Technical --- R10.84, Generalized abdominal pain R63.4, Abnormal weight loss Q43.8, Other specified congenital malformations of intestine CPT copyright 2018 [employer]. All rights reserved. The codes documented in this report are preliminary and upon web analyst reviewmay be revised to meet current compliance requirements. Procedure Date: 01/30/2021 7:49:43 AM [address] [place] [address] Baltazar Burnham MD GI PROCEDURE ORDERABLES Final Re sult from Last 3 Months or Most Recently Relevant to Health Maintenance Insurance [place] DIRECT TwoF [facility] DIRECT TwoF PLANS DIRECT TwoF PLANS DIRECT TwoF PLANS DIRECT [facility] TwoF PLANS [place] [address] [place] [address] TwoF PLANS DIRECT [facility] TwoF PLANS DIRECT Advance Directives For more information, please contact: [phone] (9AM - 5PM Jess/[facility], Saturday-Saturday) * Full Code (Latest Code Status on File) Date Activated Date Inactivated Comments 08/13/2022 8:13 PM Question Answer Comments Code Status Confirmed With: Patient Care Teams Emt Dispatcher Relationship Specialty Start Date End Date Arlet Singh MD, MPH [address] [place], [place] [id number] [email or web address] PCP - General Family Medicine 05/26/23 Additional Source Comments The information contained in this document represents components of the legal health record. It is not the complete legal health record.[facility]
[2025-04-17 18:31] VITALS: BP 109/66; PULSE 91; RESP 18; TEMP 36.3; O2SAT 95
[2025-04-17 20:28] VITALS: BP 118/71; PULSE 86; RESP 16; TEMP 36.6; O2SAT 94
--- NOTE | 2025-04-17 21:10 | PC.NURSE ---
20G IV in right AC, pt medicated per MAR, call within reach, pt awaiting CT Scan.
--- NOTE | 2025-04-17 21:31 | PC.NURSE ---
IVF paused pt to CT scan.
[2025-04-17] MEDS: iohexoL 350 MG/ML 100 ML INFUS..BTL 85 ML IV (21:37)
[2025-04-17 23:02] VITALS: BP 120/76; PULSE 89; RESP 16; TEMP 36.8; O2SAT 95
[2025-04-17 23:25] LABS: COVID-19 Test Negative (Negative); IDNOW Serial# 55D5AD1C; IDNOW Serial# 58CA691E; Influenza B2 Negative (Negative)
[2025-04-18 00:22] VITALS: BP 121/84; PULSE 89; RESP 18; TEMP 36.7; O2SAT 96
== END 2025-04-18 00:23 | disposition home or self-care (01) ==
PROVIDERS: Physician Assistant; Physician Assistant Medical; Emergency Provider Emergency Medicine
DX: B34.9 Viral infection, unspecified (principal); K52.9 Noninfective gastroenteritis and colitis, unspecified; R10.30 Lower abdominal pain, unspecified; R39.15 Urgency of urination; R39.11 Hesitancy of micturition; R05.9 Cough, unspecified; R53.83 Other fatigue; Z03.818 Encounter for observation for suspected exposure to other biological agents ruled out
CPT/HCPCS: 36415; 74177; 80053; 81001; 83735; 85025; 87502; 87635; 96361; 96374; 96375; 99284; 99285; J1885; J2270; J2405; Q9967

== ENCOUNTER → 2025-04-17 20:39 | Outpatient (BNV) | payer OTHER, SELFPAY | PROVIDERS: Emergency Provider Emergency Medicine; Visit Provider Student in an Organized Health Care Education/Training Program | DX: R19.7 Diarrhea, unspecified (principal) | CPT/HCPCS: 74177 ==

== ENCOUNTER 2025-05-10 15:00 | Emergency (ER) | payer OTHER, SELFPAY ==
--- OUTSIDE RECORDS SUMMARY | 2013-05-26 | XMS_ITS | Encounter Summary ---
Author Organization [facility] Address [address] [facility] [address] [place] [address] Phone Care Team Providers Care Sidewalk Repairer Name Role Phone Unavailable Primary Care Provider Unavailabl e Encounter Details Date Type Department Care Team (Late st Contact Info) Description 05/26/2013 Hospital Encounter [facility],Outside Imaging [address] [place], [place] [phone] Unknown, Unknown, Social History Tobacco Use Types [...] 08/13/2022 4:58 PM Carol Orozco RN * [place] Suicide Severity Rating Scale (Screener/Recent Self-Report) Question [...] It is not the complete legal health record.[facility]
--- OUTSIDE RECORDS SUMMARY | 2013-05-28 | XMS_ITS | Encounter Summary ---
Author Organization [facility] Address [address] [facility] [address] [place] [address] Phone Care Team Providers Care Internet Marketing Executive Name Role Phone Unavailable Primary Care Provider Unavailabl e Encounter Details Date Type Department Care Team (Late st Contact Info) Description 05/28/2013 Hospital Encounter [facility],Outside Imaging [address] [place], [place] [phone] Unknown, Unknown, Social History Tobacco Use Types [...] 08/13/2022 4:58 PM Carol Orozco RN * [place] Suicide Severity Rating Scale (Screener/Recent Self-Report) Question [...] It is not the complete legal health record.[facility]
--- NOTE | ~2025-05-10 | XR_ITS ---
EXAMINATION: XR CHEST CLINICAL INFORMATION: chest pain, SOB COMPARISON: None available. TECHNIQUE: PA view of the chest was obtained. FINDINGS: The cardiac, hilar, and mediastinal contours are normal. The lungs are clear bilaterally. No pneumothorax or effusion. No focal osseous or soft tissue abnormality. There are 2 sternal wires noted. XR/XR chest 1V IMPRESSION: No active pulmonary disease. Electronically signed by: Juan Pablo Pollock MD 05/10/2025 04:17 PM EDT RP
--- NOTE | 2025-05-10 15:02 | ECG_ITS ---
Test Reason : cp Blood Pressure : */* mmHG Vent. Rate : 92 BPM Atrial Rate : 147 BPM P-R Int : 200 ms QRS Dur : 94 ms QT Int : 370 ms P-R-T Axes : 25 5 15 degrees QTcB Int : 457 ms Sinus tachycardia with Premature atrial complexes Cannot rule out Inferior infarct , age undetermined Abnormal ECG When compared with ECG of 02-Jan-2025 14:29, Premature atrial complexes are now Present Referred By: Generic ED Physician Electronically Signed By: KAYLEEN LOPEZ MD
--- NOTE | 2025-05-10 15:34 | MHC.EDTECH ---
delay on ekg due to back to back ekgs for chest pain nurse aware
[2025-05-10 16:00] VITALS: BP 113/70; PULSE 92; RESP 18; TEMP 36.8; O2SAT 94; BMI 28.9
--- NOTE | 2025-05-10 16:07 | ED_ITS ---
HPI - Chest Pain General Chief Complaint: Chest Pain Stated Complaint: chest pain Time Seen by Provider: 05/10/25 17:49 Source: patient Mode of arrival: ambulatory Limitations: no limitations History of Present Illness ED Provider: Luiza Wolf PA-C HPI narrative: Patient is a 59 year old assigned female at with a history of ASD repaired 40 years ago, DM, and anemia presenting to the emergency department today with palpitations. Patient states that over the last week she has had chest pain with deep breathing and palpitations. Patient states that she has a chronic murmur ever since her ASD but it does not usually feel like this. Patient states that she has been having a headache and left ear pain just since arriving in the department today. Patient denies any other complaints at this time. Related Data Home Medications ?Medication ?Instructions ?Recorded ?Confirmed acetaminophen 500 mg tablet 2 tab PO Q6H PRN pain 09/0605/10/25 atorvastatin 10 mg tablet 1 tab PO DAILY 10/01/2201/27 dulaglutide 1.5 mg/0.5 mL 0.75 mg subcut QWEEK 3 05/10/25 subcutaneous pen injector (Trulicity) ferrous sulfate 324 mg (65 mg 1 tab PO BID 10/01/22 iron) tablet,delayed release gabapentin 600 mg tablet 1 tab PO TID 10/01/22 insulin glargine 100 unit/mL (3 35 unit subcut DAILY 0 10/01/22 05/10/25 mL) subcutaneous pen (Lantus Solostar U-100 Insulin) metformin 1,000 mg tablet 1 tab PO BID 10/01/22 trazodone 100 mg tablet 2 tab PO BEDTIME PRN insomni a 10/01/22 05/10/25 bupropion HCl 300 mg 24 hr tablet, 300 mg PO DAILY 05/10/25 extended release flash glucose scanning reader 04/30/23 05/10/25 (FreeStyle Sean 2 [place]) hydrochlorothiazide 25 mg tablet 25 mg PO DAILY 05/10/25 lisinopril 40 mg tablet 40 mg PO DAILY 04/30/2301/27 loratadine 10 mg tablet 10 mg PO DAILY 04/30/2301/27 metoprolol succinate 25 mg 25 mg PO DAILY 04/30/2301/27 tablet,extended release 24 hr omeprazole 20 mg capsule,delayed 20 mg PO BID 04/30/23 05/10/25 release venlafaxine 150 mg 150 mg PO BID 04/30/2305/10 capsule,extended release 24 hr insulin lispro 100 unit/mL 5 - 10 unit subcut TID 12/2605/10/25 subcutaneous pen (Humalog KwikPen (U-100) Insulin) insulin lispro 100 unit/mL 5 - 10 unit subcut TID 12/2605/10/25 subcutaneous pen (Humalog KwikPen (U-100) Insulin) hyoscyamine sulfate 0.125 mg 0.125 mg PO Q4H PRN abdom inal pain 07/07/24 05/10/25 disintegrating tablet Previous Rx's ?Medication ?Instructions ?Recorded cholecalciferol (vitamin D3) 125 125 mcg PO DAILY #90 tabs 10/26/24 mcg (5,000 unit) tablet (Vitamin D3) Allergies Allergy/AdvReac Type Severity Reaction Status Date / Time No Known Allergies Allergy Verified 05/10/25 16:02 Review of Systems 2 Constitutional: Constitutional: Reports as per HPI Eyes: Eyes: Reports as per HPI ENT: Reports as per HPI Cardiovascular: Cardiovascular: Reports as per HPI Respiratory: Respiratory: Reports as per HPI Gastrointestinal: Gastrointestinal: Reports as per HPI Genitourinary: Genitourinary: Reports as per HPI Musculoskeletal: Musculoskeletal: Reports as per HPI Integumentary/Breasts: Skin/Breast: Reports as per HPI Neurologic: Reports as per HPI Psychiatric: Psychiatric: Reports as per HPI Endocrine: Endocrine: Reports as per HPI Hematologic/Lymphatic: Hematologic/Lymphatic: Reports as per HPI Allergic/Immunologic: Allergic/Immunologic: Reports as per HPI [facility] Past Medical History Attestation statement: The following information was validated with the patient. Source: old records reviewed and nursing notes reviewed Medical History Fusion of lumbar spine Back pain with history of spinal surgery Atrial septal defect Bunion of unspecified foot delivery delivered Iron deficiency anemia High blood pressure Diabetes Surgical History Gastric bypass status for obesity H/O heart surgery Social History Social History Household Members: Family Patient Tobacco Use Status: Never used Tobacco Smoked in Last 30 Days: No Use of substances other than those prescribed or required for medical reasons: No Advance Directives: No Advance Directives Information Provided: Yes Patient : No service: No Current occupational status: employed Physical Exam 2 Vital Signs: Vital Signs: Last Vital Signs Temp 98.4 F 05/10/25 19:38 Pulse 85 05/10/25 19:38 Resp 14 05/10/25 19:38 BP 110/73 05/10/25 19:38 Pulse Ox 97 05/10/25 19:38 O2 Del Method Room Air 05/10/25 19:38 BMI result Body Mass Index 28.9 Const: General: cooperative, no acute distress, alert and awake Nutritional Appearance: well nourished Orientation/consciousness: patient oriented x3 HEENT: Head: Yes normal to inspection and Yes atraumatic Ears: hearing grossly normal bilaterally and external ears normal General nose exam: Normal external nose present, no nasal discharge noted and no epistaxis Face and sinus: Yes normal facial exam, No abrasion and No laceration Mouth: Normal oral and palatal mucosa present, no drooling and no muffled voice Eyes: General: appearance normal, both eyes and all related structures P eriorbital: periorbital findings normal Eyelids: Yes eyelids normal C onjunctivae: conjunctivae normal Pupils: Equal, round and reactive pupils present EOM: EOMs intact bilaterally Neck: Neck: Yes normal visual inspection and Yes full ROM Resp: Effort & Inspection: normal respiratory effort and able to speak in complete sentences Cardio: Rate: tachycardic Rhythm: regular rhythm Heart sounds: Murmur heart sound present Neuro: General: patient oriented x3, moves all extremities and CN's II-XI intact bilaterally Cranial nerves: Yes Equal, round and reactive pupils present Cognition (Neuro): normal cognition Extrem: General: Yes normal to inspection, Yes full ROM and Yes capillary refill normal Psych: Appearance: grossly normal Mental Status: mental status grossly normal Affect: normal affect Attitude: cooperative Thought process: N ormal thought process present Thought content: Normal thought content present Insight: Good insight present (Psych) Course Course Course Narrative: RME: Patient presents to ED for palpitation, left arm pain, headache and left ear pain since Saturday. Patient is sent to the ED for evaluation. Patient denies any recent long travel, recent surgery, swelling or calf pain Medications Administered Discontinued Medications Generic Name Dose Route Start Last Admin Trade Name Jesús PRN Reason Stop Dose Admin Ketorolac Tromethamine 15 mg 05/10/25 18:08 05/10/25 18:14 Ketorolac Tromethamine 15 Mg/Ml Vial IM 05/10/25 18:09 15 mg ONCE ONE Administration Medical Decision Making Medical Decision Making [facility] Narrative: Patient is a 59 year old assigned female at with a history of ASD repaired 40 years ago, DM, and anemia presenting to the emergency department today with palpitations. Patient's physical exam was as noted in the physical exam portion of this note and consistent with her baseline. Patient's blood work was unremarkable. Patient's EKG showed sinus rhythm with PACs. Patient's chest x-ray showed no acute process. Patient's clinical presentation is most consistent with palpitations / new PACs / and chest wall pain which may be costochondritis vs. pleurisy. I explained my physical exam findings as well as all test results to the patient. I answered all questions asked by the patient. Patient received Toradol which, upon re-evaluation, she stated it helped her chest wall pain some and her headache a little bit. I stressed the importance of the patient taking her medication as directed (either prescribed or as the over the counter packaging recommends). I stressed the importance of the patient following up with her primary care provider and a silver wrapper. I stressed the importance of the patient returning to the emergency department immediately if her symptoms were to worsen or if she were to develop any dizziness, shortness of breath, difficulty breathing, chest pain, blurry vision, loss of vision, nausea, vomiting, abdominal pain, fever, chills, back pain, or any other complaints. Patient verbalized agreement and understanding with this treatment plan and discharge. Differential Diagnosis Differential Diagnoses: The differential diagnosis associated with the presentation includes Chest wall pain Pleurisy Costochondritis NSTEMI STEMI Palpitations Arrythmia Admission/Observation Consideration of admission/observation: Escalation of care including admission/observation considered Patient would have been admitted to the hospital had her work up had any findings where hospital admission was appropriate and her clinical presentation warranted hospital admission. Lab Data MDM Lab Attestation statement: I reviewed the patient's lab results. My interpretation of these results are in the [facility] Rationale portion of this note. 05/10/25 16:32 05/10/25 16:32 Labs: Lab Results 05/10/25 05/10/25 Range/Units 16:32 18:02 WBC 5.6 (4.8-10.8) X10*3/uL RBC 3.85 L (4.20-5.50) X10*6/uL Hgb 12.1 (12.0-16.0) g/dl Hct 35.3 L (37.0-47.0) % MCV 91.7 (80.0-98.0) fL MCH 31.4 (27.0-33.0) pg MCHC 34.3 (31.0-35.0) g/dl RDW 12.1 (11.0-16.0) % Plt Count 209 (160-400) X10*3/uL MPV 9.4 (9.4-12.3) fL Immature Gran % (Auto) 0.4 (0.0-0.4) % Neut % (Auto) 48.2 (45-73) % Lymph % (Auto) 39.1 (20-40) % [place] % (Auto) 9.4 (2-11) % Eos % (Auto) 2.2 (0-4) % Baso % (Auto) 0.7 (0-2) % Lymph # (Auto) 2.2 (1.2-4.9) X10*3/uL [place] # (Auto) 0.5 (0.1-1.2) X10*3/uL Eos # (Auto) 0.1 (0.0-0.4) X10*3/uL Baso # (Auto) 0.0 (0.0-0.2) X10*3/uL Abs Immat Gran (auto) 0.02 (0.00-0.03) X10*3/uL Absolute Neuts (auto) 2.7 (2.0-8.3) x10*3/uL Absolute Nucleated RBC 0.000 (0.0-0.012) X10*3/uL Nucleated RBC % (auto) 0.0 (0.0-0.2) /100WBC Sodium 136 (135-145) mmol/L Potassium 4.1 (3.3-5.1) mmol/L Chloride 103 (96-108) mmol/L Carbon Dioxide 26 (22-29) mmol/L Anion Gap 11 L (12-20) BUN 23 H (9-16) mg/dL Creatinine 1.02 (0.5-1.4) mg/dL Estim Creat Clear Calc 62.4 Estimated GFR 56 Random Glucose 172 H (60-115) mg/dL Calcium 9.4 (8.4-10.2) mg/dL Magnesium 1.8 (1.6-2.6) mg/dL Total Bilirubin 0.3 (0.0-1.0) mg/dL Direct Bilirubin 0.2 (0.0-0.5) mg/dL AST 42 H (5-31) U/L ALT 44 H (0-31) U/L Alkaline Phosphatase 68 (39-117) U/L Troponin I High Sens < 2.7 < 2.7 (<3.5-17.0) ng/L NT-Pro-B Natriuret Pep 78.0 (<300) pg/mL Total Protein 6.9 (6.5-8.0) g/dL Albumin 4.2 (3.5-5.0) g/dL TSH 0.69 (0.32-4.0) uIU/mL COVID-19 (CARLOS ALBERTO) Negative (Negative) COVID-19 Clin Com See Note Influenza Type A (BRYAN) Negative (Negative) Influenza Type B (BRYAN) Negative (Negative) Influenza A & B Note See Note Independent Interpretation I performed an independent interpretation of an: EKG and Plain X-Ray Interpretation: My interpretation is in agreement with the radiologist's impression of this imaging study. L Reason for Exam: chest pain, SOB EXAMINATION: XR CHEST CLINICAL INFORMATION: chest pain, SOB COMPARISON: None available. TECHNIQUE: PA view of the chest was obtained. FINDINGS: The cardiac, hilar, and mediastinal contours are normal. The lungs are clear bilaterally. No pneumothorax or effusion. No focal osseous or soft tissue abnormality. There are 2 sternal wires noted. XR/XR chest 1V IMPRESSION: No active pulmonary disease. Electronically signed by: Juan Pablo Pollock MD 05/10/2025 04:17 PM EDT RP Dictated By: Juan Pablo Pollock MD Signed By: Electronically signed by Juan Pablo Pollock MD 05/10/25 1617 I independently interpreted this EKG and am in agreement with the below findings: Vent. Rate: 92 BPM Atrial Rate: 147 BPM P-R Int: 200 ms QRS Dur: 94 ms QT Int: 370 ms P-R-T Axes: 25 5 15 degrees QTcB Int: 457 ms Sinus rhythm with Premature atrial complexes When compared with ECG of 02-Jan-2025 14:29, Premature atrial complexes are now Present DD/ 1531 Radiology Impression Discussion of test interpretation with radiology: I have reviewed the radiologist's reading. Discharge Plan Discharge Clinical Impression: Heart palpitations, Chest wall pain Patient Disposition: Home, Self-Care Instructions: Chest Pain (ED), Heart Palpitations (DC) Additional Instructions: Your work up today showed no EMERGENT cause for your symptoms. Your EKG showed extra beats that are called premature atrial contractions. These can be a normal occurrence in patients. You should follow up with a silver wrapper. IF you are prescribed home medications and/or you are taking over the counter medications at home - it is very important you continue to do so as prescribed / directed unless told otherwise. Follow up with a primary care provider. Return to the emergency department immediately if your symptoms worsen or if you develop any numbness, tingling, dizziness, shortness of breath, difficulty breathing, chest pain, blurry vision, loss of vision, nausea, vomiting, abdominal pain, fever, chills, back pain, or any other complaints. L If you do not have a primary care provider - call any of the below numbers to establish and follow up with a primary care provider. [facility] Care ([place]) [phone] [place] [address], [id number] [facility] Primary Care ([facility]) [phone] [place] [address] [address] [facility], [address] [facility] Primary Care ([facility]) [phone] [place] [address], [address] [facility], [address] [facility] Primary Care ([place]endo[place]) [phone] [place] [address], [address] [place], [address] [facility] Family Medicine [phone] [place] [address], [phone] Please see the information below about our Patient Portal. If you are not yet enrolled in the [facility] Patient Portal, you will receive an enrollment email invitation following your visit to any [facility] setting. You may also self-enroll in the Patient Portal by visiting our website: [email or web address] The following information is required to access the Patient Portal: - Your [facility] Medical Record Number - Your personal home email address (must match what is in your electronic medical record, Registration staff can assist with this) - Name - Date of Capabilities of the Patient Portal: - Message some providers - View upcoming appointments - Access your health summary, medical history, and visit history - View current conditions and allergies - View procedure and lab results - View your medications, including guidelines, side effects, and precautions - Complete pre-appointment questionnaires requested by your provider - Ready summary reports of your office visits and procedures To access the Patient Portal Mobile Eden, follow these directions: - Search [employer] in the Eden Store or Google AboutOne Store - Download the Eden - Search for [facility] - Enter your login/password Prescriptions: No Action gabapentin 600 mg tablet 1 tab PO TID atorvastatin 10 mg tablet 1 tab PO DAILY acetaminophen 500 mg tablet 2 tab PO Q6H PRN (Reason: pain) trazodone 100 mg tablet 2 tab PO BEDTIME PRN (Reason: insomnia) metformin 1,000 mg tablet 1 tab PO BID ferrous sulfate 324 mg (65 mg iron) tablet,delayed release (DR/EC) 1 tab PO BID insulin glargine [Lantus Solostar U-100 Insulin] 100 unit/mL (3 mL) insulin pen 35 unit subcut DAILY Trulicity 1.5 mg/0.5 mL pen injector 0.75 mg subcut QWEEK venlafaxine 150 mg capsule,extended release 24hr 150 mg PO BID omeprazole 20 mg capsule,delayed release(DR/EC) 20 mg PO BID hydrochlorothiazide 25 mg tablet 25 mg PO DAILY metoprolol succinate 25 mg tablet extended release 24 hr 25 mg PO DAILY lisinopril 40 mg tablet 40 mg PO DAILY loratadine 10 mg tablet 10 mg PO DAILY bupropion HCl 300 mg tablet extended release 24 hr 300 mg PO DAILY (DME) FreeStyle Sean 2 [place] Misc MISCELLANEOUS QID insulin lispro [Humalog KwikPen Insulin] 100 unit/mL insulin pen 5 - 10 unit subcut TID insulin lispro [Humalog KwikPen Insulin] 100 unit/mL insulin pen 5 - 10 unit subcut TID hyoscyamine sulfate 0.125 mg tablet,disintegrating 0.125 mg PO Q4H PRN (Reason: abdominal pain) cholecalciferol (vitamin D3) [Vitamin D3] 125 mcg (5,000 unit) Tablet 125 mcg PO DAILY Qty: 90 3RF Referrals: [facility] [Provider Group] Referral Note: Call to establish and follow up with a silver wrapper. Interventions: ED Discharge Assessment Last Done: 05/10/25 19:38 Discharge Date/Time: 05/10/25 19:45 Print Language: Turkish
[2025-05-10 16:37] LABS: MANUAL DIFF FLAG NO
[2025-05-10 16:41] LABS: Hematocrit 35.3 % (37.0-47.0); Hemoglobin 12.1 g/dl (12.0-16.0); Imm Gran Abs Auto 0.02 X10*3/uL (0.00-0.03); Imm Gran Pct Auto 0.4 % (0.0-0.4); Lymphocytes Absolute Auto 2.2 X10*3/uL (1.2-4.9); Mean Corpuscular HGB Conc 34.3 g/dl (31.0-35.0); Mean Corpuscular Hemoglobin 31.4 pg (27.0-33.0); Mean Corpuscular Volume 91.7 fL (80.0-98.0); NRBC Abs Auto 0.000 X10*3/uL (0.0-0.012); NRBC Pct Auto 0.0 /100WBC (0.0-0.2); Platelet Count 209 X10*3/uL (160-400); Red Blood Count 3.85 X10*6/uL (4.20-5.50); White Blood Count 5.6 X10*3/uL (4.8-10.8)
[2025-05-10 16:51] LABS: Anion Gap 11 (12-20); Blood Urea Nitrogen 23 mg/dL (9-16); Calcium 9.4 mg/dL (8.4-10.2); Carbon Dioxide 26 mmol/L (22-29); Chloride 103 mmol/L (96-108); Creatinine Clr Calc Pharmacy 62.4; Estimated Glomerular Filt Rate 56; Potassium 4.1 mmol/L (3.3-5.1); Sodium 136 mmol/L (135-145)
[2025-05-10 16:58] LABS: Alanine Aminotransferase 44 U/L (0-31); Albumin Level 4.2 g/dL (3.5-5.0); Alkaline Phosphatase 68 U/L (39-117); Aspartate Amino Transferase 42 U/L (5-31); Magnesium 1.8 mg/dL (1.6-2.6); Total Protein 6.9 g/dL (6.5-8.0)
[2025-05-10 16:59] LABS: NT Pro B Type Natriuretic Pept 78.0 pg/mL (<300)
[2025-05-10 17:04] LABS: Troponin-I High Sensitivity < 2.7 ng/L (<3.5-17.0)
[2025-05-10 17:44] VITALS: BP 131/82; PULSE 84; RESP 15; TEMP 36.8; O2SAT 98
[2025-05-10 18:13] VITALS: BP 122/78; PULSE 80; RESP 18; TEMP 36.6; O2SAT 97
--- NOTE | 2025-05-10 18:17 | PC.NURSE ---
a&ox4. vss and up to date. nsr on the secured entrance monitor. pt presents to the ED c/o increased palpitations to left side of chest radiating down LUE x 2 weeks. pt reports associated weakness/intermittent numbness/tingling in hands bilaterally sob. denies hx asthma/copd. 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 not on anticoagulants. labs/ekg/CXR completed in triage. 20gIV placed in the right AC - repeat troponin/swabs obtained/sent to lab. pt seen by ED provider/aware of place. pending echocardiogram to be completed. pt otherwise on RA w/o difficulty - no sob/wob noted. respirations even/unlabored. plan of care ongoing. call barnes placed within reach.
[2025-05-10 18:32] LABS: Troponin-I High Sensitivity < 2.7 ng/L (<3.5-17.0)
[2025-05-10 18:37] LABS: COVID-19 Test Negative (Negative); IDNOW Serial# 55D5AD1C; IDNOW Serial# 58CA691E; Influenza B2 Negative (Negative)
--- OUTSIDE RECORDS SUMMARY | 2025-05-10 18:40 | XMS_ITS | Encounter Summary ---
Author Organization [facility] Address [address] [facility] [address] [place] [phone] Phone Care Team Providers Care Desktop Operator Name Role Phone Anna Taylor MD Primary Care Provider [phone] Arlet Singh MD, MPH Primary Care Provider + Encounter Details Date Type Department Care Team (Late st Contact Info) Description 08/13/2022 Procedure Pass [facility], Ct Scan - [address] [address] Social History Tobacco Use Types Packs/Day Years [...] 4:58 PM EST Carol Strange RN * [place] Suicide Severity Rating Scale (Screener/Recent Self-Report) Question [...] on filedocumented in this encounter Care Teams Desktop Operator Relationship Specialty Start Date End Date Anna Taylor MD [email or web address] PCP - General Family Medicine 06/05/22 05/25/23 Arlet Singh MD, MPH [address] [place] [phone] [email or web address] PCP - General Family Medicine 05/26/23 documented as of this encounter Additional Source Comments The information contained in this document represents components of the legal health record. It is not the complete legal health record.[facility]
--- OUTSIDE RECORDS SUMMARY | 2025-05-10 18:40 | XMS_ITS | Encounter Summary ---
Author Organization [facility] Address [address] [facility] [address] [place] [phone] Phone Care Team Providers Care Car Trimmer Name Role Phone Anna Taylor MD Primary Care Provider [phone] Arlet Singh MD, MPH Primary Care Provider + Encounter Details Date Type Department Care Team (Late st Contact Info) Description 07/27/2022 Procedure Pass [facility], Ct Scan - [address] [address] Social History Tobacco Use Types Packs/Day Years [...] No Risk Indicated 07/27/2022 10:51 AM Krista Neo RN * [place] Suicide Severity Rating Scale (Screener/Recent Self-Report) Question [...] on filedocumented in this encounter Care Teams Car Trimmer Relationship Specialty Start Date End Date Anna Taylor MD [email or web address] PCP - General Family Medicine 06/05/22 05/25/23 Arlet Singh MD, MPH [address] [place] [phone] [email or web address] PCP - General Family Medicine 05/26/23 documented as of this encounter Additional Source Comments The information contained in this document represents components of the legal health record. It is not the complete legal health record.[facility]
--- OUTSIDE RECORDS SUMMARY | 2025-05-10 18:40 | XMS_ITS | Encounter Summary ---
Author Organization [facility] Address [address] [facility] [address] [place] [address] Phone Care Team Providers Care Real Estate Office Supervisor Name Role Phone Anna Taylor MD Primary Care Provider [phone] Arlet Singh MD, MPH Primary Care Provider + Encounter Details Date Type Department Care Team (Late st Contact Info) Description 07/27/2022 Procedure Pass [facility], Ct Scan - [address] [address] Social History Tobacco Use Types Packs/Day Years [...] 07/27/2022 10:51 AM Krista Noe RN * [place] Suicide Severity Rating Scale (Screener/Recent Self-Report) Question [...] on filedocumented in this encounter Care Teams Real Estate Office Supervisor Relationship Specialty Start Date End Date Anna Taylor MD [email or web address] PCP - General Family Medicine 06/05/22 05/25/23 Arlet Singh MD, MPH [address] [place] [phone] [email or web address] PCP - General Family Medicine 05/26/23 documented as of this encounter Additional Source Comments The information contained in this document represents components of the legal health record. It is not the complete legal health record.[facility]
--- OUTSIDE RECORDS SUMMARY | 2025-05-10 18:40 | XMS_ITS | Clinical Summary ---
Author Organization [address] [facility] Address [address] [place] [address] Phone Care Team Providers Care Customer Professional Name Role Phone Katheryn Izquierdo Primary Care [...] to allow for permissive hypertension Diabetes mellitus ([facility] V24, [facility] V28) Overview (07/01/2024): Last Assessment & [...] for a right SI joint injection at [facility]. As she has no back pain, we [...] adjustment. Appt scheduled with Barbara. Referral to [facility] for intensive self management. 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 Overview (07/01/2024): surgical repair age 25 IMO update Other specified hemorrhagic conditions (CMS/[facility] V24) 08/07/2006 Overview (07/01/2024): age 5 Pyelonephritis 05/07/2006 Overview (07/01/2024): positive blood culture 04/10 O update Hypertension 06/13/2005 Depression 06/13/2005 Immunizations Immunization Administration Dates Next Due H1N1 Inj Preservative [...] HISTORICAL DELIVERY; COMMENT: times 2 BUNIONECTOMY PROCEDURE: GA CORRJ HLX VLGS BNCTY SESMDC W/DOUBLE OSTEOTOMY; COMMENT: bilateral OTHER SURGICAL HISTORY PROCEDURE: GA RADIAL KERATOTOMY; COMMENT: lasix surger x 9 [...] V24) 08/07/2006 DX:Other specified hemorrhag ic conditions ([facility]); COMMENT: age 5 Type II or [...] uncontrolled Diabetes mellitus type II, c ontrolled ([facility] V24, [facility] V28) 11/12/2007 DX:Diabetes mellitus type I I, controlled ([facility]) Esophageal reflux DX:Esophageal reflux Essential hypertension, benign D X:Essential hypertension, benign Lumbar disc herniation 06/16/2012 DX:Lumbar disc herniation Obesity 07/11/2012 DX:Obesity Hypoglycemia DX:Hypoglycemia Vitamin D deficiency DX:Vitamin D deficiency Major depressive disorder DX:Duglas or depressive disorder Insomnia DX:Insomnia Otitis externa DX:Otitis beam racker a Impacted cerumen DX:Impacted cer umen Other seasonal allergic rhinitis DX:Other seasonal allergic rhinitis Cholecystitis DX:Cholecystitis Low back pain DX:Low back pain Neuropathy DX:Neuropathy Severe diabetic hypoglycemia ([facility] V24, [facility] V28) DX:Severe diabetic hypoglyce darleen ([facility]) Seasonal allergic rhinitis 08/22/2022 DX:Se asonal allergic rhinitis Postmenopausal bleeding DX:Postm enopausal bleeding Abnormal weight gain DX:Abnormal weight gain Type 2 diabetes mellitus, co ntrolled ([facility] V24, [facility] V28) 08/22/2022 DX:Type 2 diabetes mellitus , controlled ([facility]) Family History Medical History Relation Name Comments Hypertension Father ulcer,NV, colon polyps at 67, metastatic cancer with [...] Last Done Comments Breast Cancer Screening 1965 Colorectal Cancer Screening: Colonoscopy 1966 Diabetes: Annual Foot Exam 1976 Diabetes: Annual Retina Eye Exam 1976 Hepatitis B Vaccines (1 of 3 - 19+ 3-dose series) 1985 Cervical Cancer Screening: Pap Smear 06/09/2015 06/09/2012, 06/09/2012 HIV Screening 07/08/2022 Hepatitis C Screening 07/08/2022 [...] 12/01/2033 12/02/2023, 05/30/2022, 05/30/2022, Additional history exists RSV Immunization Adult Patients (1 - 1-dose 75+ series) 2041 Zoster Vaccines Completed 06/26/2021, 04/18/2021 HIB Vaccines [...] bstracted Blood Venous blood specimen / Unknown [facility] Provider LAB BLOOD ORDERABLES Sandee l Result * Lipid panel (08/14/2022) [facility] Triglycerides 0 mg/dL Comment:no interpretation, a bstracted Cholesterol 0 mg/dL Comment:no interpretation, a bstracted HDL 0 mg/dL Comment:no interpretation, a bstracted LDL Cholesterol 0 mg/dL Comment:no interpretation, a bstracted Blood Venous blood specimen / Unknown Result [facility] Provider LAB BLOOD ORDERABLES Sandee l Result * Urine Albumin Creatinine Ratio (01/30/2013) [facility] Urine Albumin Creatinine Ratio abstracted Result [facility] Provider HEALTH MAINTENANCE Final Result * Cervical Cancer Screening: HPV (06/09/2012) [facility] Cervical Cancer Screening: HPV no interpretation , abstracted [facility] Provider HEALTH MAINTENANCE Final Result from Last 3 Months or Most Recently Relevant to Health Maintenance Insurance [facility] [employer] [facility] [employer] PL[employer] Care Teams Customer Professional Relationship Specialty Start Date End Date Katheryn Izquierdo PA [address] [place] [phone] PCP - General 07/09/22
--- OUTSIDE RECORDS SUMMARY | 2025-05-10 18:41 | XMS_ITS | Encounter Summary ---
Author Organization [facility] Address [address] [facility] [address] [place] [address] Phone Care Team Providers Care International Student Counselor Name Role Phone Cheyenne Oshea MD Unavailable Baltazar Burnham MD Unavailable Baltazar Burnham MD Primary Care Provider [phone] Anna Taylor MD Primary Care Provider [phone] Arlet Singh MD, MPH Primary Care Provider + Reason for Referral * MRI/CAT Scan - Closed Specialty Diagnoses / Procedures Referred By Contac t Referred To Contact Radiology Diagnoses Abdominal pain, unspecified abdominal location Unintended weight loss Procedures CT Abdomen/Pelvis CHG CT SCAN,ABDOMENT AND PELVIS,W CONTRAST CHG CT SCAN,ABDOMENT AND PELVIS,COMBO CHG CT SCAN,ABDOMENT AND PELVIS,W/O CONTRAST Terry Self MD Phone: tel: fax: [email or web address]:[email or web address] Referral ID Status Reason Start Date Expiration Date Visits Re quested Visits Authorized [id number] Closed 01/30/2021 04/30/2021 1 1 Encounter Details Date Type Department Care Team (Latest Contact Info) Description 01/30/2021 Transcribe Orders [facility] [address] [place], [place] [phone] Terry Self MD [address] [place] [address] [email or web address] Abdominal pain, unspecified abdominal location (Primary Dx); [...] loss documented in this encounter Care Teams International Student Counselor Relationship Specialty Start Date End Date Baltazar Burnham MD [address] [place] [address] [email or web address] PCP - General 08/08/17 06/04/22 Anna Taylor MD [address] [place] [address] [email or web address] PCP - General Family Medicine 06/05/22 05/25/23 Arlet Singh MD, MPH [address] [place] [address] [email or web address] PCP - General Family Medicine 05/26/23 Cheyenne Oshea MD [address] [place] [address], [facility] [address] [place] [address] [email or web address] Historical LMR Provider 05/23/17 08/12/21 Baltazar Burnham MD [address] [place] [address] [email or web address] Historical LMR Provider 05/23/17 08/12/21 documented as of this encounter Additional Source Comments The information contained in this document represents components of the legal health record. It is not the complete legal health record.[facility]
--- OUTSIDE RECORDS SUMMARY | 2025-05-10 18:41 | XMS_ITS | Encounter Summary ---
Author Organization [facility] Address [address] [facility] [address] [place] [address] Phone Care Team Providers Care Business Applications Developer Name Role Phone Anna Taylor MD Primary Care Provider [phone] Arlet Singh MD, MPH Primary Care Provider + Encounter Details Date Type Department Care Team (Late st Contact Info) Description 08/13/2022 Procedure Pass [facility], [address] [address] Social History Tobacco Use Types Packs/Day Years [...] 4:58 PM EST Carol Strange RN * [place] Suicide Severity Rating Scale (Screener/Recent Self-Report) Question [...] on filedocumented in this encounter Care Teams Business Applications Developer Relationship Specialty Start Date End Date Anna Taylor MD [email or web address] PCP - General Family Medicine 06/05/22 05/25/23 Arlet Singh MD, MPH [address] [place] [address] [email or web address] PCP - General Family Medicine 05/26/23 documented as of this encounter Additional Source Comments The information contained in this document represents components of the legal health record. It is not the complete legal health record.[facility]
--- OUTSIDE RECORDS SUMMARY | 2025-05-10 18:41 | XMS_ITS | Encounter Summary ---
Author Organization [facility] Address [address] [facility] [address] [place] [address] Phone Care Team Providers Care Immunohematologist Name Role Phone Cheyenne Oshea MD Unavailable [phone] Baltazar Burnham MD Unavailable Baltazar Burnham MD Primary Care Provider [phone] Anna Taylor MD Primary Care Provider [phone] Arlet Singh MD, MPH Primary Care Provider + Encounter Details Date Type Department Care Team (Late st Contact Info) Description 01/30/2021 Procedure Pass [facility] Endoscopy Admitting Dept Virtual Department [address] [place] [address] Social History Tobacco Use Types [...] on filedocumented in this encounter Care Teams Immunohematologist Relationship Specialty Start Date End Date Baltazar Burnham MD [address] [facility] [address] [place] [address] [email or web address] PCP - General 08/08/17 06/04/22 Anna Taylor MD [address] [facility] [address] [place] [phone] PCP - General Family Medicine 06/05/22 05/25/23 Arlet Singh MD, MPH [address] [place] [address] [email or web address] PCP - General Family Medicine 05/26/23 Cheyenne Oshea MD [address] [place] [address], [facility] [address] [place] [address] [email or web address] Historical LMR Provider 05/23/17 08/12/21 Baltazar Burnham MD [address] [facility] [address] [place] [address] [email or web address] Historical LMR Provider 05/23/17 08/12/21 documented as of this encounter Additional Source Comments The information contained in this document represents components of the legal health record. It is not the complete legal health record.[facility]
--- OUTSIDE RECORDS SUMMARY | 2025-05-10 18:41 | XMS_ITS | Encounter Summary ---
Author Organization [facility] Address [address] [place] [address] [place] [address] Phone Care Team Providers Care Nc Machinist Name Role Phone Anna Taylor MD Primary Care Provider [phone] Arlet Singh MD, MPH Primary Care Provider + Reason for Referral * MRI/CAT Scan - Closed Specialty Diagnoses / Procedures Referred By Contmarybel t Referred To Contact Radiology Diagnoses Radiculopathy, lumbosacral region Left foot drop Procedures MRI Lumbar Spine CHG MRI, LUMBAR SPINE CHG MRI, LUMBAR SPINE COMBO CHG MRI, LUMBAR SPINE CONTRAST Katheryn Izquierdo PA [address] [place] [address] Phone: tel: fax: mailto:[email or web address] Referral ID Status Reason Start Date Expiration Date Visits Re quested Visits Authorized [id number] Closed 05/06/2023 08/04/2023 1 1 Encounter Details Date Type Department Care Team (Late st Contact Info) Description 05/07/2023 Transcribe Orders Virtual Department [address] [place] [address] Katheryn Izquierdo PA [address] [place], [place] [phone] rach Radiculopathy, lumbosacral region (Primary Dx); Left [...] foot documented in this encounter Care Teams Nc Machinist Relationship Specialty Start Date End Date Anna Taylor MD [email or web address] PCP - General Family Medicine 06/05/22 05/25/23 Arlet Singh MD, MPH [address] [place] [address] [email or web address] PCP - General Family Medicine 05/26/23 documented as of this encounter Additional Source Comments The information contained in this document represents components of the legal health record. It is not the complete legal health record.[facility]
--- OUTSIDE RECORDS SUMMARY | 2025-05-10 18:41 | XMS_ITS | Encounter Summary ---
Author Organization [facility] Address [address] [place] [address] [place] [address] Phone Care Team Providers Care Payroll Officer Name Role Phone Anna Taylor MD Primary Care Provider [phone] Arlet Singh MD, MPH Primary Care Provider + Encounter Details Date Type Department Care Team (Late st Contact Info) Description 09/03/2022 Procedure Pass [facility] Endoscopy Admitting Dept Virtual Department [address] [place] [address] Social History Tobacco Use Types Packs/Day Years Used Date Smoking Tobacco: Never Smokeless Tobacco: Never Alcohol Use Standard Drinks/Week Comments Yes 5 (1 standard drink = 0.6 oz pure alcohol) Fridays - None since August Intimate Partner Violence Answer Date R ecorded Are you denied basic needs s [facility] as food, clothing, or medical care? No 09/03/2022 In the past 12 months have y ou been in a relationship with a person who hurts, threatens, or tries to control you? No 09/03/2022 Are you denied basic needs s [facility] as food, clothing, or medical care? [...] on filedocumented in this encounter Care Teams Payroll Officer Relationship Specialty Start Date End Date Anna Taylor MD [email or web address] PCP - General Family Medicine 06/05/22 05/25/23 Arlet Singh MD, MPH [address] [place] [address] [email or web address] PCP - General Family Medicine 05/26/23 documented as of this encounter Additional Source Comments The information contained in this document represents components of the legal health record. It is not the complete legal health record.[facility]
--- OUTSIDE RECORDS SUMMARY | 2025-05-10 18:41 | XMS_ITS | Encounter Summary ---
Author Organization [facility] Address [address] [facility] [address] [place] [address] Phone Care Team Providers Care Lining Maker Hand Name Role Phone Anna Taylor MD Primary Care Provider [phone] Arlet Singh MD, MPH Primary Care Provider + Encounter Details Date Type Department Care Team (Late st Contact Info) Description 06/19/2022 Ancillary Orders Non-Invasive Cardiology [address] [place] [address] Katheryn Izquierdo PA [address] [place], [place] [phone] rach Other form of dyspnea Social History [...] AM EST) Max BP Systolic 130 mmHg [facility] Max BP Diastolic 80 mmHg [facility] Max HR 110 BPM [facility] Resting HR 92 BPM [facility] Resting BP Systolic 130 mmHg [facility] Resting BP Diastolic 80 mmHg [facility] Peak METS 1.0 METS [facility] Peak HR 105 BPM [facility] Anatomical Region Laterality Modality Heart Other 06/19/2022 [...] followed by injection of Tc99m Sestamibi by [facility] non licensed nuclear equipment operator. Test was done as a pharmacologic test [...] report for full details. Katie Ling DNP, VEHICLE CALIBRATION ENGINEER-BC with Dr. Huynh . us Katheryn CERRATO CV NM CARDIAC Fi nal Result documented in this encounter Visit Diagnoses Diagnosis Other form of dyspnea Other form of dyspnea documented in this encounter Care Teams Lining Maker Hand Relationship Specialty Start Date End Date Anna Taylor MD PCP - General Family Medicine 06/05/22 05/25/23 Arlet Singh MD, MPH [address] [place] [address] [email or web address] PCP - General Family Medicine 05/26/23 documented as of this encounter Additional Source Comments The information contained in this document represents components of the legal health record. It is not the complete legal health record.[facility]
--- OUTSIDE RECORDS SUMMARY | 2025-05-10 18:41 | XMS_ITS | Clinical Summary ---
Author Organization [facility] Address [address] [facility] [address] [place] [address] Phone Care Team Providers Care Record Systems Analyst Name Role Phone Arlet Singh MD, MPH [...] 09/03/2022 Are you denied basic needs s [facility] as food, clothing, or medical care? [...] SEE NARRATIVE - 05/08/2023 2:55 PM EDT [address] [address] Diamond Expert: Ira Matt MD [employer]DER [employer]TER Cytology Report FINAL DIAGNOSIS A. PAP SMEAR [...] 59, 66, 68) Note: Testing performed by [employer] HR-HPV analysis. Clinical correlation is advised. This HPV test was performed at [facility], [address] [place] [address]. This test has been FDA approved for [employer] cervical cytology specimens. The accuracy and precision of this test for all other specimen sources has been verified in the Cytopathology Laboratory of the [facility] and has not been cleared or approved by the U.S. Food and Drug Administration. Clinical correlation is advised. CLINICAL HISTORY Date of Last Menstrual Period: Not Provided Menstrual History: Unknown Other Clinical Conditions: Screening Pap SPECIMEN SOURCE A: PAP SMEAR (SUREPATH) CE Patient Name: YARELY CONDE : 1965 (Age: 57) Sex: F Institution: [facility] Location: [facility] Date of Collection: 05/06/2023 Date of Reported: 05/08/2023 14:55 Results to: Katheryn Izquierdo Katheryn CERRATO CYTOLOGY ORDERABLE S Final Result Performing Organization Address City/[facility] Co de Phone Number SEE NARRATIVE * (ABNORMAL) Hemoglobin A1c (08/14/2022 5:26 AM EST) HEMOGLOBIN A1C 7.7(H) 4.3 - 5.8 % [facility] Blood 08/14/2022 5:26 AM EST 08/14/2022 7:22 AM EST William Montoya MD LAB BLOOD ORDERABLES Final Result Performing Organization Address City/[facility]/ZIP Co de Phone Number [address] [address] * (ABNORMAL) Basic metabolic panel (08/14/2022 5:26 AM EST) SODIUM 140 133 - 146 mmol/L [facility] CHLORIDE 104 96 - 108 mmol/L [facility] POTASSIUM 3.7 3.3 - 5.1 mmol/L [facility] CO2 27 21 - 35 mmol/L [facility] BUN 15 6 - 19 mg/dL [facility] CREATININE 0.80 0.5 - 1.5 mg/dL [facility] GLUCOSE 113(H) 70 - 99 mg/dL [facility] CALCIUM 8.9 8.4 - 10.3 mg/dL [facility] EGFR 86 >59 mL/min/1.7 3m2 [facility] Comment:Estimated glomerular filtration rate calculated using the CKD-EPI refit equation. ANION GAP 13 10 - 20 mmol/L [facility] Blood 08/14/2022 5:26 AM EST 08/14/2022 6:17 AM EST William Montoya MD LAB BLOOD ORDERABLES Final Result Performing Organization Address [facility]/ZIP Co de Phone Number [address] [address] * ENDOSCOPY, COLON (01/30/2021 7:49 AM EDT) Narrative Transcriptions Jason Hair MD - 01/30/2021 7:49 AM EDT Patient Name: Yarely Conde Attending MD:: JASON HAIR MD Procedure Date: 01/30/2021 7:49 AM Date of : 1965 Age: 55 Admit Type: Outpatient Gender: Female Room: [facility] Referring MD: Baltazar Burnham MD Exam Type: [...] 7:49 AM Procedure Code(s): --- Professional --- 80815, Colonoscopy, flexible; diagnostic, including collection of specimen(s) by brushing or washing, when performed (separateprocedure) --- Technical --- 82131, Colonoscopy, flexible; diagnostic, including collection of specimen(s) by brushing or washing, when performed (separateprocedure) Diagnosis Code(s): --- Professional --- R10.84, Generalized abdominal pain R63.4, Abnormal weight loss Q43.8, Other specified congenital malformations of intestine --- Technical --- R10.84, Generalized abdominal pain R63.4, Abnormal weight loss Q43.8, Other specified congenital malformations of intestine CPT copyright 2018 [employer]. All rights reserved. The codes documented in this report are preliminary and upon pulmonologist reviewmay be revised to meet current compliance requirements. Procedure Date: 01/30/2021 7:49:43 AM [address] [place] [address] Baltazar Burnham MD GI PROCEDURE ORDERABLES Final Re sult from Last 3 Months or Most Recently Relevant to Health Maintenance Insurance [employer] DIRECT [employer] [facility] DIRECT [employer] PLANS DIRECT [employer] PLANS DIRECT [employer] PLANS DIRECT [facility] [employer] [place]ANS [place] [address] [place] [address] [employer] PLANS DIRECT [facility] [employer] PLANS DIRECT Advance Directives For more information, please contact: [phone] (9AM - 5PM [facility], Saturday-Saturday) * Full Code (Latest Code Status on File) Date Activated Date Inactivated Comments 08/13/2022 8:13 PM Question Answer Comments Code Status Confirmed With: Patient Care Teams Record Systems Analyst Relationship Specialty Start Date End Date Arlet Singh MD, MPH [address] [place], [place] [id number] [email or web address] PCP - General Family Medicine 05/26/23 Additional Source Comments The information contained in this document represents components of the legal health record. It is not the complete legal health record.[facility]
--- OUTSIDE RECORDS SUMMARY | 2025-05-10 18:41 | XMS_ITS | Encounter Summary ---
Author Organization [facility] Address [address] [facility] [address] [place] [address] Phone Care Team Providers Care Clinical Systems Educator Name Role Phone Cheyenne Oshea MD Unavailable [phone] Baltazar Burnham MD Unavailable Baltazar Burnham MD Primary Care Provider [phone] Anna Taylor MD Primary Care Provider [phone] Arlet Singh MD, MPH Primary Care Provider + Encounter Details Date Type Department Care Team (Late st Contact Info) Description 01/30/2021 Procedure Pass [facility], Ct Scan - [address] [address] Social History Tobacco Use Types [...] on filedocumented in this encounter Care Teams Clinical Systems Educator Relationship Specialty Start Date End Date Baltazar Burnham MD [address] [facility] [address] [place] [address] [email or web address] PCP - General 08/08/17 06/04/22 Anna Taylor MD [address] [facility] [address] [place] [phone] [email or web address] PCP - General Family Medicine 06/05/22 05/25/23 Arlet Singh MD, MPH [address] [place] [address] PCP - General Family Medicine 05/26/23 Cheyenne Oshea MD [address] [place] [address], [facility] [address] [place] [address] [email or web address] Historical LMR Provider 05/23/17 08/12/21 Baltazar Burnham MD [address] [facility] [address] [place] [address] [email or web address] Historical LMR Provider 05/23/17 08/12/21 documented as of this encounter Additional Source Comments The information contained in this document represents components of the legal health record. It is not the complete legal health record.[facility]
--- OUTSIDE RECORDS SUMMARY | 2025-05-10 18:41 | XMS_ITS | Encounter Summary ---
Author Organization [facility] Address [address] [place] [address] [place] [address] Phone Care Team Providers Care Athlete Manager Name Role Phone Anna Taylor MD Primary Care Provider + [phone] Arlet Singh MD, MPH Primary Care Provider + Encounter Details Date Type Department Care Team (Late st Contact Info) Description 08/14/2022 Procedure Pass [facility] Admitting Dept Virtual Department [address] [place] [address] Social History Tobacco Use Types Packs/Day Years [...] on filedocumented in this encounter Care Teams Athlete Manager Relationship Specialty Start Date End Date Anna Taylor MD [email or web address] PCP - General Family Medicine 06/05/22 05/25/23 Arlet Singh MD, MPH [address] [place], [place] [id number] [email or web address] PCP - General Family Medicine 05/26/23 documented as of this encounter Additional Source Comments The information contained in this document represents components of the legal health record. It is not the complete legal health record.[facility]
--- OUTSIDE RECORDS SUMMARY | 2025-05-10 18:41 | XMS_ITS | Encounter Summary ---
Author Organization [facility] Address [address] [facility] [address] [place] [address] Phone Care Team Providers Care Manager Strategy & Account Name Role Phone Baltazar Burnham MD Primary Care Provider [phone] Anna Taylor MD Primary Care Provider [phone] Arlet Singh MD, MPH Primary Care Provider [...] Expiration Date Visits Re quested Visits Authorized [id number] Closed 05/31/2022 08/28/2022 4 4 Encounter Details Date Type Department Care Team (Late st Contact Info) Description 06/01/2022 Transcribe Orders Virtual Department [address] [place] [address] Katheryn Izquierdo PA [address] [place], [place] [id number] rach Other form of dyspnea (Primary Dx) [...] infarct. LVEF calculated at approximately 63%. POS [id number] Narrative 06/20/2022 9:39 AM EST COMPARISON: None [...] TID ratio at 1.15. Procedure Note Terry oRa MD - 06/20/2022 COMPARISON: None DOSE: 8.3 [...] No evidence of infarct. LVEF calculated at [id number]%. POS [id number] us Katheryn CERRATO CV NM CARDIAC Fi nal Result documented in this encounter Visit Diagnoses Diagnosis Other form of dyspnea- Primary Other form of dyspnea documented in this encounter Care Teams Manager Strategy & Account Relationship Specialty Start Date End Date Baltazar Burnham MD [address] [place] [id number] [email or web address] PCP - General 08/08/17 06/04/22 Anna Taylor MD [address] [place] [address] [email or web address] PCP - General Family Medicine 06/05/22 05/25/23 Arlet Singh MD, MPH [address] [place] [address] PCP - General Family Medicine 05/26/23 documented as of this encounter Additional Source Comments The information contained in this document represents components of the legal health record. It is not the complete legal health record.[facility]
--- OUTSIDE RECORDS SUMMARY | 2025-05-10 18:41 | XMS_ITS | Encounter Summary ---
Author Organization [facility] Address [address] [facility] [address] [place] [address] Phone Care Team Providers Care Moss Gatherer Name Role Phone Anna Taylor MD Primary Care Provider [phone] Arlet Singh MD, MPH Primary Care Provider + Encounter Details Date Type Department Care Team (Late st Contact Info) Description 08/13/2022 Procedure Pass [facility], Ct Scan - [address] [address] Social History Tobacco Use Types Packs/Day Years [...] 4:58 PM EST Carol Strange RN * [place] Suicide Severity Rating Scale (Screener/Recent Self-Report) Question [...] on filedocumented in this encounter Care Teams Moss Gatherer Relationship Specialty Start Date End Date Anna Taylor MD [email or web address] PCP - General Family Medicine 06/05/22 05/25/23 Arlet Singh MD, MPH [address] [place] [phone] [email or web address] PCP - General Family Medicine 05/26/23 documented as of this encounter Additional Source Comments The information contained in this document represents components of the legal health record. It is not the complete legal health record.[facility]
--- OUTSIDE RECORDS SUMMARY | 2025-05-10 18:41 | XMS_ITS | Encounter Summary ---
Author Organization [facility] Address [address] [facility] [address] [place] [phone] Phone Care Team Providers Care Ham Boner Name Role Phone Anna Taylor MD Primary Care Provider [phone] Arlet Singh MD, MPH Primary Care Provider + Encounter Details Date Type Department Care Team (Late st Contact Info) Description 05/07/2023 Procedure Pass [facility], [address] [address] Social History Tobacco Use Types Packs/Day Years [...] on filedocumented in this encounter Care Teams Ham Boner Relationship Specialty Start Date End Date Anna Taylor MD PCP - General Family Medicine 06/05/22 05/25/23 Arlet Singh MD, MPH [address] [place] [address] PCP - General Family Medicine 05/26/23 documented as of this encounter Additional Source Comments The information contained in this document represents components of the legal health record. It is not the complete legal health record.[facility]
[2025-05-10 19:09] VITALS: BP 110/73; PULSE 85; RESP 14; TEMP 36.9; O2SAT 97
[2025-05-10 19:38] VITALS: BP 110/73; PULSE 85; RESP 14; TEMP 36.9; O2SAT 97
== END 2025-05-10 19:45 | disposition home or self-care (01) ==
PROVIDERS: Physician Assistant; Physician Assistant Medical; Emergency Provider Student in an Organized Health Care Education/Training Program
DX: R00.2 Palpitations (principal); R07.89 Other chest pain; R06.02 Shortness of breath; E11.9 Type 2 diabetes mellitus without complications; Z79.899 Other long term (current) drug therapy
CPT/HCPCS: 36415; 71045; 80048; 80076; 83735; 83880; 84443; 84484; 85025; 87502; 87635; 93005; 96372; 99284; 99285; J1885

== ENCOUNTER → 2025-05-10 15:02 | Outpatient (BNV) | payer OTHER, SELFPAY | PROVIDERS: Emergency Provider Student in an Organized Health Care Education/Training Program; Visit Provider Internal Medicine Cardiovascular Disease | DX: R00.0 Tachycardia, unspecified (principal); I49.3 Ventricular premature depolarization | CPT/HCPCS: 93010 ==

== ENCOUNTER → 2025-05-10 16:05 | Outpatient (BNV) | payer OTHER, SELFPAY | PROVIDERS: Visit Provider Radiology Diagnostic Radiology | DX: R07.89 Other chest pain (principal); R06.02 Shortness of breath | CPT/HCPCS: 71045 ==

== ENCOUNTER 2025-05-29 16:37 | Emergency (ER) | payer OTHER, SELFPAY ==
--- OUTSIDE RECORDS SUMMARY | 2013-05-26 | XMS_ITS | Encounter Summary ---
Author Organization [facility] Address [address] [facility] [address] [place] [address] Phone Care Team Providers Care Ramp Supervisor Name Role Phone Unavailable Primary Care Provider Unavailabl e Encounter Details Date Type Department Care Team (Late st Contact Info) Description 05/26/2013 Hospital Encounter [facility],Outside Imaging [address] [place], [place] [phone] Unknown, Unknown, Social History Tobacco Use Types [...] 08/13/2022 4:58 PM Carol Orozco RN * [place] Suicide Severity Rating Scale (Screener/Recent Self-Report) Question [...] It is not the complete legal health record.[facility]
--- OUTSIDE RECORDS SUMMARY | 2013-05-28 | XMS_ITS | Encounter Summary ---
Author Organization [facility] Address [address] [facility] [address] [place] [address] Phone Care Team Providers Care Reporting Specialist Name Role Phone Unavailable Primary Care Provider Unavailabl e Encounter Details Date Type Department Care Team (Late st Contact Info) Description 05/28/2013 Hospital Encounter [facility],Outside Imaging [address] [place], [place] [phone] Unknown, Unknown, Social History Tobacco Use Types [...] 08/13/2022 4:58 PM Carol Orozco RN * [place] Suicide Severity Rating Scale (Screener/Recent Self-Report) Question [...] is not the complete legal health record.[facility]
--- NOTE | ~2025-05-29 | CT_ITS ---
CLINICAL HISTORY: LLQ Tenderness; N V D CT abdomen and pelvis with contrast Comparison: CT - CT ABDOMEN PELVIS W IV CON - 05/29/25 22:[address]/SR - CT ABDOMEN PELVIS W IV CON - 04/17/25 21:34 EDT Findings: There is a small hiatal hernia. There is an unchanged benign calcification in the right lobe of the liver. Patient is status post cholecystectomy. The pancreas, spleen, and adrenal glands are unremarkable. There is a small right renal cyst. Kidneys are otherwise unremarkable. Patient is status post gastric bypass. The appendix is normal. The remainder of the gastrointestinal tract is unremarkable. The aorta and IVC are normal. There are no enlarged lymph nodes. Uterus and adnexa are unremarkable. The bladder is unremarkable. There is unchanged induration of the subcutaneous fat in the superficial right lower quadrant abdominal wall probably site of subcutaneous medication administration. Patient is status post instrumented posterior fusion of L4-S1. There is no fracture or suspicious lytic or sclerotic lesion. IMPRESSION: No acute abnormality in the abdomen or pelvis. This document has been electronically signed by: Grady De La Cruz MD on 05/29/2025 23:58:35
--- NOTE | 2025-05-29 16:55 | ED.GENADULT ---
HPI - General Adult General Chief complaint: Nausea/Vomiting/Diarrhea Stated complaint: vomitng/diarhhea/headache unable to take diab meds Time Seen by Provider: 05/29/25 20:57 Source: patient Mode of arrival: ambulatory Limitations: no limitations History of Present Illness ED Provider: Juan Pablo CERRATO HPI narrative: The patient is a 59-year-old female with a history of microcytic anemia, diabetes, hyperlipidemia, hypertension, and GERD, presenting to the ED for evaluation of nausea, vomiting, diarrhea, and headache which began yesterday. Patient reports multiple episodes of nonbloody vomiting with multiple episodes of watery brown diarrhea without hematochezia or melena. The patient denies objective fever but reports subjective malaise and an occasional nonproductive cough. The patient denies associated chest pain, shortness of breath, focal neurological deficit, near-syncope, syncope, recent sick contacts, or recent trauma. The patient reports abdominal cramping but denies overt abdominal pain. Patient reports history of gastric sleeve 10 years ago, and 2 previous C-sections, denies other surgical abdominal history. Related Data Home Medications ?Medication ?Instructions ?Recorded ?Confirmed acetaminophen 500 mg tablet 2 tab PO Q6H PRN pain 10/01/22 05/10/25 atorvastatin 10 mg tablet 1 tab PO DAILY 10/01/22 05/10/25 dulaglutide 1.5 mg/0.5 mL 0.75 mg subcut QWEEK 10/01/22 05/10/25 subcutaneous pen injector (Trulicity) ferrous sulfate 324 mg (65 mg 1 tab PO BID 10/01/22 05/10/25 iron) tablet,delayed release gabapentin 600 mg tablet 1 tab PO TID 10/01/22 05/10/25 insulin glargine 100 unit/mL (3 35 unit subcut DAILY 10/01/22 05/10/25 mL) subcutaneous pen (Lantus Solostar U-100 Insulin) metformin 1,000 mg tablet 1 tab PO BID 10/01/22 05/10/25 trazodone 100 mg tablet 2 tab PO BEDTIME PRN insomnia 10/01/22 05/10/25 bupropion HCl 300 mg 24 hr tablet, 300 mg PO DAILY 04/30/23 05/10/25 extended release flash glucose scanning reader 04/30/23 05/10/25 (FreeStyle Sean 2 [place]) hydrochlorothiazide 25 mg tablet 25 mg PO DAILY 04/30/23 05/10/25 lisinopril 40 mg tablet 40 mg PO DAILY 04/30/23 05/10/25 loratadine 10 mg tablet 10 mg PO DAILY 04/30/23 05/10/25 metoprolol succinate 25 mg 25 mg PO DAILY 04/30/23 05/10/25 tablet,extended release 24 hr omeprazole 20 mg capsule,delayed 20 mg PO BID 04/30/23 05/10/25 release venlafaxine 150 mg 150 mg PO BID 04/30/23 05/10/25 capsule,extended release 24 hr insulin lispro 100 unit/mL 5 - 10 unit subcut TID 08/09/23 05/10/25 subcutaneous pen (Humalog KwikPen (U-100) Insulin) insulin lispro 100 unit/mL 5 - 10 unit subcut TID 08/09/23 05/10/25 subcutaneous pen (Humalog KwikPen (U-100) Insulin) hyoscyamine sulfate 0.125 mg 0.125 mg PO Q4H PRN abdominal pain 07/07/24 05/10/25 disintegrating tablet Previous Rx's ?Medication ?Instructions ?Recorded cholecalciferol (vitamin D3) 125 125 mcg PO DAILY #90 tabs 05/18/25 mcg (5,000 unit) tablet (Vitamin D3) acetaminophen 500 mg capsule 1,000 mg (2 x 500 mg) PO .q8 PRN 05/30/25 fever or pain #30 caps ibuprofen 600 mg tablet 600 mg PO Q8H PRN fever or pain 05/30/25 #30 tabs ondansetron 4 mg disintegrating 4 mg PO Q8H PRN nausea and 05/30/25 tablet vomiting #14 tabs Allergies Allergy/AdvReac Type Severity Reaction Status Date / Time No Known Allergies Allergy Verified 05/29/25 16:56 Review of Systems Review of Systems: Yes all other systems are reviewed and are negative [facility] Past Medical History Medical History Fusion of lumbar spine Back pain with history of spinal surgery Atrial septal defect Bunion of unspecified foot delivery delivered Iron deficiency anemia High blood pressure Diabetes Surgical History Gastric bypass status for obesity H/O heart surgery Social History Social History Household Members: Family Alcohol intake: never Patient Tobacco Use Status: Never used Tobacco Smoked in Last 30 Days: No Use of substances other than those prescribed or required for medical reasons: No Advance Directives: No Advance Directives Information Provided: Yes Do you have a plan to hurt others: No Plan Patient : No service: No Current occupational status: employed Physical Exam ED Vital Signs: Vital Signs - 24 hr 05/29/25 16:56 05/29/25 19:22 05/29/25 22:57 Temperature 98.2 F Pulse Rate 100 86 101 H Respiratory Rate 18 20 18 Blood Pressure 125/81 147/87 H 139/72 Pulse Oximetry 98 98 97 Oxygen Delivery Method Room Air Room Air Room Air BMI result Body Mass Index 28.4 CONSTITUTIONAL: The patient appears drawn out, but otherwise non-toxic, well nourished and in no acute distress. Vital signs as documented. HEAD: Atraumatic, normocephalic. EYES: EOMs grossly intact, pupils equal, conjunctiva clear, no exudate. ENT: Nares patent, no discharge. Airway patent, no audible stridor, visible mucosa is pink and moist without noted lesions. NECK: Trachea is midline, no obvious masses or gross abnormalities. CHEST: Symmetric movement, normal appearance. LUNGS: LS present and CTAB, no w/r/r. Non-labored work of breathing. CARDIAC: Regular Rhythm, S1/S2 appreciated, no murmurs, rubs or gallops. ABDOMEN: Abdomen soft x4 quadrants, positive tenderness to palpation of the LLQ, negative rebound or guarding. No palpable masses or organomegaly. : Deferred. EXTREMITIES: Normal tone, moves all extremities spontaneously without reported pain. No obvious acute injury or deformity noted. NEURO: Alert and oriented x3, CN II-XII appear grossly intact. Cerebellar Functioning grossly intact. No obvious sensory or motor deficits. Speech clear and appropriate. PSYCH: normal affect, appropriate eye contact, fluid speech, with appropriate response to questioning. No reported suicidality or homicidality. SKIN: Warm, dry, color appropriate, normal turgor. No rashes noted. Course Course Course Narrative: This is a Rapid Medical Exam performed in triage by Allegra Chamorro PA-C. Full HPI, ROS and PE to be performed by primary ED provider. 51-year-old female with a past medical history diabetes, HTN, anemia, presenting to the ED c/o headache, upper abd pain, nausea, vomiting, diarrhea, unable to keep anything down x yesterday. has been unable to take meds because she cannot tolerate PO. Admits POC 350 today. PE: uncomfortable, dry heaving Plan: EKG, Labs, UA, viral testing, POC. Zofran given in triage Medications Administered Discontinued Medications Generic Name Dose Route Start Last Admin Trade Name Freq PRN Reason Stop Dose Admin Sodium Chloride 1,000 mls @ 999 mls/hr 05/29/25 20:45 05/29/25 23:03 Ns IV 05/29/25 21:45 Infused .Q1H1M NEGIN Infusion Magnesium Sulfate 2 gm in 50 mls @ 150 mls/hr 05/29/25 20:57 05/29/25 22:40 Magnesium Sulfate/H2o IV 05/29/25 21:16 Infused ONCE ONE Infusion Iohexol 85 ml 05/29/25 22:36 05/29/25 22:39 Iohexol 350 Mg/Ml 100 Ml Infus..Btl IV 05/29/25 22:37 85 ml ONCE ONE Administration Metoclopramide HCl 10 mg 05/29/25 21:27 05/29/25 21:31 Metoclopramide Hcl 10 Mg/2 Ml Vial IVPUSH 05/29/25 21:28 10 mg ONCE ONE Administration Ondansetron HCl 4 mg 05/29/25 16:57 05/29/25 16:59 Ondansetron Odt 4 Mg Tab.Rapdis TRANSLINGU 05/29/25 16:58 4 mg ONCE ONE Administration Ondansetron HCl 4 mg 05/29/25 20:38 05/29/25 20:48 Ondansetron Hcl 4 Mg/2 Ml Vial IVPUSH 05/29/25 20:39 4 mg ONCE ONE Administration Medical Decision Making Medical Decision Making MDM Narrative: 10:16 PM 05/29/2025 (Angelo CERRATO): The patient is a 59-year-old female with a history of microcytic anemia, diabetes, hyperlipidemia, hypertension, and GERD, presenting to the ED for evaluation of nausea, vomiting, diarrhea, and headache which began yesterday. Patient reports multiple episodes of nonbloody vomiting with multiple episodes of watery brown diarrhea without hematochezia or melena. The patient denies objective fever but reports subjective malaise and an occasional nonproductive cough. The patient denies associated chest pain, shortness of breath, focal neurological deficit, near-syncope, syncope, recent sick contacts, or recent trauma. The patient reports abdominal cramping but denies overt abdominal pain. Patient reports history of gastric sleeve 10 years ago, and 2 previous C-sections, denies other surgical abdominal history. On exam however the patient's abdominal exam reveals left lower quadrant abdominal tenderness without associated rebound. The patient's laboratory evaluation demonstrates mild leukocytosis of 11.4, no significant anemia. Viral swabs are negative for COVID and influenza. There is evidence of hypomagnesemia, and mild hyponatremia. Additionally BUN is elevated at 25, representing prerenal azotemia likely secondary to dehydration, urinalysis shows increased specific gravity, glucosuria, and some ketones with no evidence of UTI. The patient's blood sugar has been mildly elevated at 264, with mildly elevated beta hydroxybutyrate. However there is no elevation of the anion gap and VBG reveals no acidosis, with HC03 of 27. No concern for DKA at this time. Patient received fluid hydration, and nausea was treated with Zofran, however after Zofran patient reported a sensation of reflux, patient had an additional episode of vomiting and was treated with Reglan. The patient will be sent for CT abdomen and pelvis to evaluate for diverticulitis, although patient's presentation of symptoms is more consistent with viral gastroenteritis. 12:19 AM 05/30/2025 (Angelo CERRATO): Patient's symptoms have improved following interventions, CT has resulted and shows no evidence of acute intra-abdominal pathology. Patient is likely suffering from a viral gastroenteritis, we will perform p.o. challenge and if successful patient will be discharged home with supportive care. 12:51 AM 05/30/2025 (Angelo CERRATO): Patient has successfully completed a p.o. challenge, patient will be discharged with plan as outlined above. Admission/Observation Consideration of admission/observation: Escalation of care including admission/observation considered Lab Data MDM Lab Attestation statement: I reviewed the patient's lab results. 05/29/25 17:43 05/29/25 17:43 Labs: Lab Results 05/29/25 05/29/25 05/29/25 Range/Units 17:43 19:27 21:40 WBC 11.4 H (4.8-10.8) X10*3/uL RBC 4.06 L (4.20-5.50) X10*6/uL Hgb 12.7 (12.0-16.0) g/dl Hct 36.6 L (37.0-47.0) % MCV 90.1 (80.0-98.0) fL MCH 31.3 (27.0-33.0) pg MCHC 34.7 (31.0-35.0) g/dl RDW 12.4 (11.0-16.0) % Plt Count 267 D (160-400) X10*3/uL MPV 9.1 L (9.4-12.3) fL Immature Gran % (Auto) 0.4 (0.0-0.4) % Neut % (Auto) 80.9 H (45-73) % Lymph % (Auto) 10.4 L (20-40) % Parke % (Auto) 8.1 (2-11) % Eos % (Auto) 0.0 (0-4) % Baso % (Auto) 0.2 (0-2) % Lymph # (Auto) 1.2 (1.2-4.9) X10*3/uL Parke # (Auto) 0.9 (0.1-1.2) X10*3/uL Eos # (Auto) 0.0 (0.0-0.4) X10*3/uL Baso # (Auto) 0.0 (0.0-0.2) X10*3/uL Abs Immat Gran (auto) 0.04 H (0.00-0.03) X10*3/uL Absolute Neuts (auto) 9.2 H (2.0-8.3) x10*3/uL Absolute Nucleated RBC 0.000 (0.0-0.012) X10*3/uL Nucleated RBC % (auto) 0.0 (0.0-0.2) /100WBC VBG pH 7.43 (7.32-7.43) VBG pCO2 40 mmHg VBG pO2 48 mmHg VBG HCO3 27 H (22-26) mmol/L VBG O2 Saturation 74.0 % VBG Base Excess 2.9 mmol/L Sodium 133 L (135-145) mmol/L Potassium 4.3 (3.3-5.1) mmol/L Chloride 97 (96-108) mmol/L Carbon Dioxide 21 L (22-29) mmol/L Anion Gap 19 (12-20) BUN 25 H (9-16) mg/dL Creatinine 1.13 (0.5-1.4) mg/dL Estim Creat Clear Calc 55.8 Estimated GFR 49 Random Glucose 264 H (60-115) mg/dL Calcium 8.7 D (8.4-10.2) mg/dL Magnesium 1.4 L* (1.6-2.6) mg/dL Total Bilirubin 0.7 (0.0-1.0) mg/dL Direct Bilirubin 0.3 (0.0-0.5) mg/dL AST 30 (5-31) U/L ALT 37 H (0-31) U/L Alkaline Phosphatase 74 (39-117) U/L Total Protein 7.7 (6.5-8.0) g/dL Albumin 4.9 (3.5-5.0) g/dL Lipase 11 (8-78) U/L Beta-Hydroxybutyrate 0.89 H (0.02-0.27) mmol/L Urine Color Yellow Urine Appearance Clear Urine pH 6.5 (5.0-9.0) Ur Specific [place] >= 1.030 H (1.005-1.025) Urine Protein 30 (1+) H (Neg-Trace) mg/dL Urine Glucose (UA) >=1000 H (Negative) mg/dL Urine Ketones 15 (Negative) mg/dL Urine Blood Trace H (Negative) Urine Nitrite Negative (Negative) Ur Leukocyte Esterase Negative (Negative) Urine RBC 0-2 (0-2) /HPF Urine WBC 0-5 (0-5) /HPF Ur Squamous Epith Cells 3-5 (0-2) /HPF Urine Bacteria None Seen (None Seen) Hyaline Casts 0-2 (0-2) /LPF COVID-19 (CARLOS ALBERTO) Negative (Negative) COVID-19 Clin Com See Note Influenza Type A (BRYAN) Negative (Negative) Influenza Type B (BRYAN) Negative (Negative) Influenza A & B Note See Note Independent Interpretation I performed an independent interpretation of an: EKG (EKG shows sinus tachycardia with rate of 105 with solitary PVC, no evidence of acute ischemia, no ST elevation, no other ectopy. QTC 457. Compared to previous on 05/10/2025, PACs have resolved however PVC is new. No other significant morphology changes.) Radiology Impression Discussion of test interpretation with radiology: I have reviewed the radiologist's reading. Radiologist Impression: CT abdomen and pelvis with contrast Comparison: CT - CT ABDOMEN PELVIS W IV CON - 05/29/25 22:[address]/SR - CT ABDOMEN PELVIS W IV CON - 04/17/25 21:34 EDT Findings: There is a small hiatal hernia. There is an unchanged benign calcification in the right lobe of the liver. Patient is status post cholecystectomy. The pancreas, spleen, and adrenal glands are unremarkable. There is a small right renal cyst. Kidneys are otherwise unremarkable. Patient is status post gastric bypass. The appendix is normal. The remainder of the gastrointestinal tract is unremarkable. The aorta and IVC are normal. There are no enlarged lymph nodes. Uterus and adnexa are unremarkable. The bladder is unremarkable. There is unchanged induration of the subcutaneous fat in the superficial right lower quadrant abdominal wall probably site of subcutaneous medication administration. Patient is status post instrumented posterior fusion of L4-S1. There is no fracture or suspicious lytic or sclerotic lesion. IMPRESSION: No acute abnormality in the abdomen or pelvis. This document has been electronically signed by: Grady De La Cruz MD on 05/29/2025 23:58:35 Discharge Plan Discharge Clinical Impression: Gastroenteritis Patient Disposition: Home, Self-Care Instructions: Gastroenteritis (ED), Acute Nausea and Vomiting (ED) Additional Instructions: Thank you for choosing [facility] for your care today. Your symptoms today were likely caused by a viral infection of your gastrointestinal tract. Based on your laboratory evaluation, your recurrent vomiting and diarrhea did result in some dehydration and low magnesium. We repleted your magnesium 3 your IV, and provided IV fluid hydration and nausea control. Thankfully your symptoms improved with these interventions. Additionally your CT and exam today show no evidence of any acute surgical or bacterial process causing your symptoms. At this time there is no indication for antibiotics, admission to the hospital, or continued ED observation, and it is safe to discharge you home. You should take alternating (staggered) doses of ibuprofen 600mg and Tylenol 1000mg every 4 hours as needed for any additional pain. You may take Zofran as directed as needed for additional nausea. Please stay well hydrated and get plenty of rest. Please follow up with your primary care physician for re-evaluation, additional management of your symptoms, and continued preventative care. If you do not have a primary care physician, please call the [facility] at [phone] to establish a new primary care physician. While waiting to establish your new primary care physician, you can call our Walk[facility]in [facility] at [phone] for non-emergency needs. Please return to the emergency department if you develop a severe or sudden change in your symptoms, a fever over 100.4 that does not improve with Tylenol or Ibuprofen, recurrent vomiting, or any other new or worsening symptoms or concerns. Prescriptions: New acetaminophen 500 mg capsule 1,000 mg PO .q8 PRN (Reason: fever or pain) Qty: 30 0RF ibuprofen 600 mg tablet 600 mg PO Q8H PRN (Reason: fever or pain) Qty: 30 0RF ondansetron 4 mg tablet,disintegrating 4 mg PO Q8H PRN (Reason: nausea and vomiting) Qty: 14 0RF No Action gabapentin 600 mg tablet 1 tab PO TID atorvastatin 10 mg tablet 1 tab PO DAILY acetaminophen 500 mg tablet 2 tab PO Q6H PRN (Reason: pain) trazodone 100 mg tablet 2 tab PO BEDTIME PRN (Reason: insomnia) metformin 1,000 mg tablet 1 tab PO BID ferrous sulfate 324 mg (65 mg iron) tablet,delayed release (DR/EC) 1 tab PO BID insulin glargine [Lantus Solostar U-100 Insulin] 100 unit/mL (3 mL) insulin pen 35 unit subcut DAILY Trulicity 1.5 mg/0.5 mL pen injector 0.75 mg subcut QWEEK venlafaxine 150 mg capsule,extended release 24hr 150 mg PO BID omeprazole 20 mg capsule,delayed release(DR/EC) 20 mg PO BID hydrochlorothiazide 25 mg tablet 25 mg PO DAILY metoprolol succinate 25 mg tablet extended release 24 hr 25 mg PO DAILY lisinopril 40 mg tablet 40 mg PO DAILY loratadine 10 mg tablet 10 mg PO DAILY bupropion HCl 300 mg tablet extended release 24 hr 300 mg PO DAILY (DME) FreeStyle Sean 2 [place] Misc MISCELLANEOUS QID insulin lispro [Humalog KwikPen Insulin] 100 unit/mL insulin pen 5 - 10 unit subcut TID insulin lispro [Humalog KwikPen Insulin] 100 unit/mL insulin pen 5 - 10 unit subcut TID hyoscyamine sulfate 0.125 mg tablet,disintegrating 0.125 mg PO Q4H PRN (Reason: abdominal pain) cholecalciferol (vitamin D3) [Vitamin D3] 125 mcg (5,000 unit) Tablet 125 mcg PO DAILY Qty: 90 3RF Referrals: Arlet Singh MD [Primary Care Provider, Family Practice] Clinical Impression: Gastroenteritis Print Language: Qatari
[2025-05-29 16:56] VITALS: BP 125/81; PULSE 100; RESP 18; TEMP 36.8; O2SAT 98; BMI 28.4
--- NOTE | 2025-05-29 16:57 | ECG_ITS ---
Test Reason : hyperglycemia Blood Pressure : */* mmHG Vent. Rate : 105 BPM Atrial Rate : 105 BPM P-R Int : 194 ms QRS Dur : 92 ms QT Int : 346 ms P-R-T Axes : 21 2 -10 degrees QTcB Int : 457 ms Sinus tachycardia with occasional Premature ventricular complexes Otherwise normal ECG When compared with ECG of 10-May-2025 15:31, Premature ventricular complexes are now Present Premature atrial complexes are no longer Present Minimal criteria for Inferior infarct are no longer Present Referred By: Allegra Chamorro Electronically Signed By: KAYLEEN LOPEZ MD
[2025-05-29 17:49] LABS: Hematocrit 36.6 % (37.0-47.0); Hemoglobin 12.7 g/dl (12.0-16.0); Imm Gran Abs Auto 0.04 X10*3/uL (0.00-0.03); Imm Gran Pct Auto 0.4 % (0.0-0.4); Lymphocytes Absolute Auto 1.2 X10*3/uL (1.2-4.9); MANUAL DIFF FLAG NO; Mean Corpuscular HGB Conc 34.7 g/dl (31.0-35.0); Mean Corpuscular Hemoglobin 31.3 pg (27.0-33.0); Mean Corpuscular Volume 90.1 fL (80.0-98.0); NRBC Abs Auto 0.000 X10*3/uL (0.0-0.012); NRBC Pct Auto 0.0 /100WBC (0.0-0.2); Platelet Count 267 X10*3/uL (160-400); Red Blood Count 4.06 X10*6/uL (4.20-5.50); White Blood Count 11.4 X10*3/uL (4.8-10.8)
[2025-05-29 18:05] LABS: IDNOW Serial# 55D5AD1C; Influenza B2 Negative (Negative)
[2025-05-29 18:06] LABS: COVID-19 Test Negative (Negative); IDNOW Serial# 58CA691E
[2025-05-29 18:08] LABS: Alanine Aminotransferase 37 U/L (0-31); Albumin Level 4.9 g/dL (3.5-5.0); Alkaline Phosphatase 74 U/L (39-117); Anion Gap 19 (12-20); Aspartate Amino Transferase 30 U/L (5-31); Blood Urea Nitrogen 25 mg/dL (9-16); Calcium 8.7 mg/dL (8.4-10.2); Carbon Dioxide 21 mmol/L (22-29); Chloride 97 mmol/L (96-108); Creatinine Clr Calc Pharmacy 55.8; Estimated Glomerular Filt Rate 49; Lipase 11 U/L (8-78); Magnesium 1.4 mg/dL (1.6-2.6); Potassium 4.3 mmol/L (3.3-5.1); Sodium 133 mmol/L (135-145); Total Protein 7.7 g/dL (6.5-8.0)
[2025-05-29 19:22] VITALS: BP 147/87; PULSE 86; RESP 20; O2SAT 98
[2025-05-29 19:34] LABS: Appearance Urine Clear; Glucose Urine UA >=1000 mg/dL (Negative); PH 6.5 (5.0-9.0); Specific Gravity - Urine >= 1.030 (1.005-1.025); UMIC TRIGGER UACC YES
--- OUTSIDE RECORDS SUMMARY | 2025-05-29 19:37 | XMS_ITS | Encounter Summary ---
Author Organization [facility] Address [address] [facility] [address] [place] [address] Phone Care Team Providers Care Ring Spinner Name Role Phone Anna Taylor MD Primary Care Provider [phone] Arlet Singh MD, MPH Primary Care Provider + Encounter Details Date Type Department Care Team (Late st Contact Info) Description 08/13/2022 Procedure Pass [facility], [address] [address] Social History Tobacco Use Types Packs/Day Years [...] 4:58 PM EST Carol Strange RN * [place] Suicide Severity Rating Scale (Screener/Recent Self-Report) Question [...] on filedocumented in this encounter Care Teams Ring Spinner Relationship Specialty Start Date End Date Anna Taylor MD [email or web address] PCP - General Family Medicine 06/05/22 05/25/23 Arlet Singh MD, MPH [address] [place] [address] [email or web address] PCP - General Family Medicine 05/26/23 documented as of this encounter Additional Source Comments The information contained in this document represents components of the legal health record. It is not the complete legal health record.[facility]
--- OUTSIDE RECORDS SUMMARY | 2025-05-29 19:37 | XMS_ITS | Encounter Summary ---
Author Organization [facility] Address [address] [facility] [address] [place] [address] Phone Care Team Providers Care Coffee Taster Name Role Phone Anna Taylor MD Primary Care Provider [phone] Arlet Singh MD, MPH Primary Care Provider + Encounter Details Date Type Department Care Team (Late st Contact Info) Description 08/13/2022 Procedure Pass [facility], Ct Scan - [address] [address] Social History Tobacco Use Types Packs/Day Years [...] 4:58 PM EST Carol Strange RN * [place] Suicide Severity Rating Scale (Screener/Recent Self-Report) Question [...] on filedocumented in this encounter Care Teams Coffee Taster Relationship Specialty Start Date End Date Anna Taylor MD [email or web address] PCP - General Family Medicine 06/05/22 05/25/23 Arlet Singh MD, MPH [address] [place] [address] [email or web address] PCP - General Family Medicine 05/26/23 documented as of this encounter Additional Source Comments The information contained in this document represents components of the legal health record. It is not the complete legal health record.[facility]
--- OUTSIDE RECORDS SUMMARY | 2025-05-29 19:37 | XMS_ITS | Encounter Summary ---
Author Organization [facility] Address [address] [facility] [address] [place] [address] Phone Care Team Providers Care Manager Emergency Department Name Role Phone Anna Taylor MD Primary Care Provider [phone] Arlet Singh MD, MPH Primary Care Provider + Encounter Details Date Type Department Care Team (Late st Contact Info) Description 06/19/2022 Ancillary Orders Non-Invasive Cardiology 30 [place] [address] Katheryn Izquierdo PA [address] [place], [place] [phone] rach Other form of dyspnea Social History [...] AM EST) Max BP Systolic 130 mmHg [facility] Max BP Diastolic 80 mmHg [facility] Max HR 110 BPM [facility] Resting HR 92 BPM [facility] Resting BP Systolic 130 mmHg [facility] Resting BP Diastolic 80 mmHg [facility] Peak METS 1.0 METS [facility] Peak HR 105 BPM [facility] Anatomical Region Laterality Modality Heart [...] by injection of Tc99m Sestamibi by [employer] nuclear power plant engineer. Test was done as a pharmacologic test [...] report for full details. Katie Ling DNP, MOBILE HOME SET UP PERSON-BC with Dr. Huynh . us Katheryn CERRATO CV NM CARDIAC Fi nal Result documented in this encounter Visit Diagnoses Diagnosis Other form of dyspnea Other form of dyspnea documented in this encounter Care Teams Manager Emergency Department Relationship Specialty Start Date End Date Anna Taylor MD [email or web address] PCP - General Family Medicine 06/05/22 05/25/23 Arlet Singh MD, MPH [address] [place] [address] [email or web address] PCP - General Family Medicine 05/26/23 documented as of this encounter Additional Source Comments The information contained in this document represents components of the legal health record. It is not the complete legal health record.[facility]
--- OUTSIDE RECORDS SUMMARY | 2025-05-29 19:37 | XMS_ITS | Encounter Summary ---
Author Organization [facility] Address [address] [facility] [address] [place] [address] Phone Care Team Providers Care Hr Business Partner Consultant Name Role Phone Baltazar Burnham MD Primary Care Provider [phone] Anna Taylor MD Primary Care Provider [phone] Arlet Singh MD, MPH Primary Care Provider [...] Expiration Date Visits Re quested Visits Authorized [id number] Closed 05/31/2022 08/28/2022 4 4 Encounter Details Date Type Department Care Team (Late st Contact Info) Description 06/01/2022 Transcribe Orders Virtual Department 30 [place] [address] Katheryn Izquierdo PA [address] [place], [place] [phone] rach Other form of dyspnea (Primary Dx) [...] infarct. LVEF calculated at approximately 63%. POS [id number] Narrative 06/20/2022 9:39 AM EST COMPARISON: None [...] No evidence of infarct. LVEF calculated at [id number]%. POS [id number] us Katheryn CERRATO CV NM CARDIAC Fi nal Result documented in this encounter Visit Diagnoses Diagnosis Other form of dyspnea- Primary Other form of dyspnea documented in this encounter Care Teams Hr Business Partner Consultant Relationship Specialty Start Date End Date Baltazar Burnham MD [address] [place] [phone] [email or web address] PCP - General 08/08/17 06/04/22 Anna Taylor MD [address] [place] [address] [email or web address] PCP - General Family Medicine 06/05/22 05/25/23 Arlet Singh MD, MPH [address] [place] [address] PCP - General Family Medicine 05/26/23 documented as of this encounter Additional Source Comments The information contained in this document represents components of the legal health record. It is not the complete legal health record.[facility]
--- OUTSIDE RECORDS SUMMARY | 2025-05-29 19:37 | XMS_ITS | Encounter Summary ---
Author Organization [facility] Address [address] [facility] [address] [place] [address] Phone Care Team Providers Care Credit Authorizer Name Role Phone Anna Taylor MD Primary Care Provider [phone] Arlet Singh MD, MPH Primary Care Provider + Encounter Details Date Type Department Care Team (Late st Contact Info) Description 07/27/2022 Procedure Pass [facility], Ct Scan - [address] [address] Social History Tobacco Use Types Packs/Day Years [...] 07/27/2022 10:51 AM Krista Noe RN * [place] Suicide Severity Rating Scale (Screener/Recent Self-Report) Question [...] on filedocumented in this encounter Care Teams Credit Authorizer Relationship Specialty Start Date End Date Anna Taylor MD [email or web address] PCP - General Family Medicine 06/05/22 05/25/23 Arlet Singh MD, MPH [address] [place] [address] [email or web address] PCP - General Family Medicine 05/26/23 documented as of this encounter Additional Source Comments The information contained in this document represents components of the legal health record. It is not the complete legal health record.[facility]
--- OUTSIDE RECORDS SUMMARY | 2025-05-29 19:37 | XMS_ITS | Encounter Summary ---
Author Organization [facility] Address [address] [facility] [address] [place] [address] Phone Care Team Providers Care Fiscal Technician Name Role Phone Anna Taylor MD Primary Care Provider [phone] Arlet Singh MD, MPH Primary Care Provider + Encounter Details Date Type Department Care Team (Late st Contact Info) Description 08/13/2022 Procedure Pass [facility], Ct Scan - [address] [address] Social History Tobacco Use Types Packs/Day Years [...] 4:58 PM EST Carol Strange RN * [place] Suicide Severity Rating Scale (Screener/Recent Self-Report) Question [...] on filedocumented in this encounter Care Teams Fiscal Technician Relationship Specialty Start Date End Date Anna Taylor MD [email or web address] PCP - General Family Medicine 06/05/22 05/25/23 Arlet Singh MD, MPH [address] [place] [address] [email or web address] PCP - General Family Medicine 05/26/23 documented as of this encounter Additional Source Comments The information contained in this document represents components of the legal health record. It is not the complete legal health record.[facility]
--- OUTSIDE RECORDS SUMMARY | 2025-05-29 19:37 | XMS_ITS | Encounter Summary ---
Author Organization [facility] Address [address] [place] [address] [place] [address] Phone Care Team Providers Care Residential Energy Auditor Name Role Phone Anna Taylor MD Primary Care Provider [phone] Arelt Singh MD, MPH Primary Care Provider + Encounter Details Date Type Department Care Team (Late st Contact Info) Description 08/14/2022 Procedure Pass [facility] Admitting Dept Virtual Department 30 [place] [address] Social History Tobacco Use Types Packs/Day Years [...] on filedocumented in this encounter Care Teams Residential Energy Auditor Relationship Specialty Start Date End Date Anna Taylor MD [email or web address] PCP - General Family Medicine 06/05/22 05/25/23 Arlet Singh MD, MPH [address] [place], [place] [phone] [email or web address] PCP - General Family Medicine 05/26/23 documented as of this encounter Additional Source Comments The information contained in this document represents components of the legal health record. It is not the complete legal health record.[facility]
--- OUTSIDE RECORDS SUMMARY | 2025-05-29 19:37 | XMS_ITS | Encounter Summary ---
Author Organization [facility] Address [address] [place] [address] [place] [address] Phone Care Team Providers Care Counter Intelligence Name Role Phone Anna Taylor MD Primary Care Provider [phone] Arlet Singh MD, MPH Primary Care Provider + Reason for Referral * MRI/CAT Scan - Closed Specialty Diagnoses / Procedures Referred By Contmarybel t Referred To Contact Radiology Diagnoses Radiculopathy, lumbosacral region Left foot drop Procedures MRI Lumbar Spine CHG MRI, LUMBAR SPINE CHG MRI, LUMBAR SPINE COMBO CHG MRI, LUMBAR SPINE CONTRAST Katheryn Izquierdo PA [address] [place] [address] Phone: tel: fax: mailto:alma Referral ID Status Reason Start Date Expiration Date Visits Re quested Visits Authorized [id number] Closed 05/06/2023 08/04/2023 1 1 Encounter Details Date Type Department Care Team (Late st Contact Info) Description 05/07/2023 Transcribe Orders Virtual Department 30 [place] [address] Katheryn Izquierdo PA [address] [place], [place] [phone] rach Radiculopathy, lumbosacral region (Primary Dx); Left [...] foot documented in this encounter Care Teams Counter Intelligence Relationship Specialty Start Date End Date Anna Taylor MD [email or web address] PCP - General Family Medicine 06/05/22 05/25/23 Arlet Singh MD, MPH [address] [place] [address] [email or web address] PCP - General Family Medicine 05/26/23 documented as of this encounter Additional Source Comments The information contained in this document represents components of the legal health record. It is not the complete legal health record.[facility]
--- OUTSIDE RECORDS SUMMARY | 2025-05-29 19:37 | XMS_ITS | Encounter Summary ---
Author Organization [facility] Address [address] [facility] [address] [place] [address] Phone Care Team Providers Care Senior Quality Control Inspector Name Role Phone Cheyenne Oshea MD Unavailable [phone] Baltazar Burnham MD Unavailable Baltazar Burnham MD Primary Care Provider [phone] Anna Taylor MD Primary Care Provider [phone] Arlet Singh MD, MPH Primary Care Provider + Encounter Details Date Type Department Care Team (Late st Contact Info) Description 01/30/2021 Procedure Pass [facility], Ct Scan - [address] [address] Social History Tobacco Use Types [...] on filedocumented in this encounter Care Teams Senior Quality Control Inspector Relationship Specialty Start Date End Date Baltazar Burnham MD [address] [facility] [address] [place] [address] [email or web address] PCP - General 08/08/17 06/04/22 Anna Taylor MD [address] [facility] [address] [place] [phone] [email or web address] PCP - General Family Medicine 06/05/22 05/25/23 Arlet Singh MD, MPH [address] [place] [address] PCP - General Family Medicine 05/26/23 Cheyenne Oshea MD [address] [place] [address], [facility] [address] [place] [address] [email or web address] Historical LMR Provider 05/23/17 08/12/21 Baltazar Burnham MD [address] [facility] [address] [place] [address] [email or web address] Historical LMR Provider 05/23/17 08/12/21 documented as of this encounter Additional Source Comments The information contained in this document represents components of the legal health record. It is not the complete legal health record.[facility]
--- OUTSIDE RECORDS SUMMARY | 2025-05-29 19:37 | XMS_ITS | Encounter Summary ---
Author Organization [facility] Address [address] [place] [address] [place] [address] Phone Care Team Providers Care Slat Basket Top Maker Name Role Phone Anna Taylor MD Primary Care Provider [phone] Arlet Singh MD, MPH Primary Care Provider + Encounter Details Date Type Department Care Team (Late st Contact Info) Description 09/03/2022 Procedure Pass [facility] Admitting Dept Virtual Department [address] [place] [address] Social History Tobacco Use Types Packs/Day Years Used Date Smoking Tobacco: Never Smokeless Tobacco: Never Alcohol Use Standard Drinks/Week Comments Yes 5 (1 standard drink = 0.6 oz pure alcohol) Fridays - None since August Intimate Partner Violence Answer Date R ecorded Are you denied basic needs s [facility] as food, clothing, or medical care? No 09/03/2022 In the past 12 months have y ou been in a relationship with a person who hurts, threatens, or tries to control you? No 09/03/2022 Are you denied basic needs s [facility] as food, clothing, or medical care? No [...] on filedocumented in this encounter Care Teams Slat Basket Top Maker Relationship Specialty Start Date End Date Anna Taylor MD [email or web address] PCP - General Family Medicine 06/05/22 05/25/23 Arlet Singh MD, MPH [address] [place] [address] [email or web address] PCP - General Family Medicine 05/26/23 documented as of this encounter Additional Source Comments The information contained in this document represents components of the legal health record. It is not the complete legal health record.[facility]
--- OUTSIDE RECORDS SUMMARY | 2025-05-29 19:37 | XMS_ITS | Clinical Summary ---
Author Organization [facility] Address [address] [place] [address] Phone Care Team Providers Care Box Toe Buffer Name Role Phone Katheryn Izquierdo Primary Care [...] to allow for permissive hypertension Diabetes mellitus ([facility] V24, [facility] V28) Overview (07/01/2024): Last Assessment & Plan: Continue Lantus as slightly decreased dose in the hospital, hold Glucophage -Basal bolus insulin, sliding scale -Check A1c Lumbar degenerative disc disease 06/11/2023 Overview (07/01/2024): Last Assessment & Plan: Ms. Buam is here for second postop visit since [...] for a right SI joint injection at [facility]. As she has no back [...] adjustment. Appt scheduled with Barbara. Referral to [facility] [place] for intensive self management. 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 Overview (07/01/2024): surgical repair age 25 IMO update Other specified hemorrhagic conditions (CMS/[facility] V24) 08/07/2006 Overview (07/01/2024): age [...] HISTORICAL DELIVERY; COMMENT: times 2 BUNIONECTOMY PROCEDURE: [place] CORRJ HLX VLGS BNCTY SESMDC W/DOUBLE OSTEOTOMY; COMMENT: bilateral OTHER SURGICAL HISTORY PROCEDURE: [place] RADIAL KERATOTOMY; COMMENT: lasix surger x 9 [...] V24) 08/07/2006 DX:Other specified hemorrhag ic conditions ([facility]); COMMENT: age 5 Type II [...] uncontrolled Diabetes mellitus type II, c ontrolled ([facility] V24, [facility] V28) 11/12/2007 DX:Diabetes mellitus type I I, controlled ([facility]) Esophageal reflux DX:Esophageal reflux Essential hypertension, benign D X:Essential hypertension, benign Lumbar disc herniation 06/16/2012 DX:Lumbar disc herniation Obesity 07/11/2012 DX:Obesity Hypoglycemia DX:Hypoglycemia Vitamin D deficiency DX:Vitamin D deficiency Major depressive disorder DX:[place] or depressive disorder Insomnia DX:Insomnia Otitis externa DX:Otitis travel nurse a Impacted cerumen DX:Impacted cer umen Other seasonal allergic rhinitis DX:Other seasonal allergic rhinitis Cholecystitis DX:Cholecystitis Low back pain DX:Low back pain Neuropathy DX:Neuropathy Severe diabetic hypoglycemia ([facility] V24, [facility] V28) DX:Severe diabetic hypoglyce darleen ([facility]) Seasonal allergic rhinitis 08/22/2022 DX:Se asonal allergic rhinitis Postmenopausal bleeding DX:Postm enopausal bleeding Abnormal weight gain DX:Abnormal weight gain Type 2 diabetes mellitus, co ntrolled ([facility] V24, [facility] V28) 08/22/2022 DX:Type 2 diabetes mellitus , controlled ([facility]) Family History Medical History Relation Name Comments Hypertension Father ulcer,[place], colon polyps at 67, metastatic cancer with [...] Cancer Screening: Pap Smear 06/09/2015 06/09/2012, 06/09/2012 RSV Immunization Adult Patients (1 - Risk 50-74 years 1-dose series) 2016 HIV Screening 07/08/2022 Hepatitis C Screening 07/08/2022 [...] Results * Annual BMP Blood Test (08/14/2022) Pathologist [facility] Annual BMP Blood Test abstracted us Historical Provider HEALTH MAINTENANCE Final Result * Hemoglobin A1c (08/14/2022) Hemoglobin A1C 0.0 % Comment:no interpretation, a bstracted Blood Venous blood specimen / Unknown [facility] Provider MD LAB BLOOD ORDERABLES Sandee l Result * Lipid panel (08/14/2022) [facility] Triglycerides 0 mg/dL Comment:no interpretation, a bstracted Cholesterol 0 mg/dL Comment:no interpretation, a bstracted HDL 0 mg/dL Comment:no interpretation, a bstracted LDL Cholesterol 0 mg/dL Comment:no interpretation, a bstracted Blood Venous blood specimen / Unknown [facility] Provider LAB BLOOD ORDERABLES Sandee l Result * Urine Albumin Creatinine Ratio (01/30/2013) [facility] Urine Albumin Creatinine Ratio abstracted [facility] Provider HEALTH MAINTENANCE Final Result * Cervical Cancer Screening: HPV (06/09/2012) [facility] Cervical Cancer Screening: HPV no interpretation , abstracted [facility] Provider HEALTH MAINTENANCE Final Result from Last 3 Months or Most Recently Relevant to Health Maintenance Insurance [facility] [employer] [facility] Linki [facility] Care Teams Box Toe Buffer Relationship Specialty Start Date End Date Katheryn Izquierdo PA [address] [place] [phone] PCP - General 07/09/22
--- OUTSIDE RECORDS SUMMARY | 2025-05-29 19:37 | XMS_ITS | Encounter Summary ---
Author Organization [facility] Address [address] [facility] [address] [place] [address] Phone Care Team Providers Care Scrap Iron Loader Name Role Phone Anna Taylor MD Primary Care Provider [phone] Arlet Singh MD, MPH Primary Care Provider + Encounter Details Date Type Department Care Team (Late st Contact Info) Description 05/07/2023 Procedure Pass [facility], [address] [address] Social History Tobacco Use Types Packs/Day Years [...] on filedocumented in this encounter Care Teams Scrap Iron Loader Relationship Specialty Start Date End Date Anna Taylor MD PCP - General Family Medicine 06/05/22 05/25/23 Arlet Singh MD, MPH [address] [place] [address] PCP - General Family Medicine 05/26/23 documented as of this encounter Additional Source Comments The information contained in this document represents components of the legal health record. It is not the complete legal health record.[facility]
--- OUTSIDE RECORDS SUMMARY | 2025-05-29 19:37 | XMS_ITS | Encounter Summary ---
Author Organization [facility] Address [address] [facility] [address] [place] [address] Phone Care Team Providers Care Christian Science Healer Name Role Phone Cheyenne Oshea MD Unavailable Baltazar Burnham MD Unavailable Baltazar Burnham MD Primary Care Provider [phone] Anna Taylor MD Primary Care Provider [phone] Arlet Singh MD, MPH Primary Care Provider + Reason for Referral * MRI/CAT Scan - Closed Specialty Diagnoses / Procedures Referred By Contac t Referred To Contact Radiology Diagnoses Abdominal pain, unspecified abdominal location Unintended weight loss Procedures CT Abdomen/Pelvis CHG CT SCAN,ABDOMENT AND PELVIS,W CONTRAST CHG CT SCAN,ABDOMENT AND PELVIS,COMBO CHG CT SCAN,ABDOMENT AND PELVIS,W/O CONTRAST Terry Self MD Phone: tel: fax: [email or web address] Referral ID Status Reason Start Date Expiration Date Visits Re quested Visits Authorized [id number] Closed 01/30/2021 04/30/2021 1 1 Encounter Details Date Type Department Care Team (Latest Contact Info) Description 01/30/2021 Transcribe Orders [facility] [address] [place], [place] [id number] Terry Self MD [address] [place] [phone] [email or web address] Abdominal pain, unspecified abdominal location (Primary Dx); [...] loss documented in this encounter Care Teams Christian Science Healer Relationship Specialty Start Date End Date Baltazar Burnham MD [address] [place] [address] [email or web address] PCP - General 08/08/17 06/04/22 Anna Taylor MD [address] [place] [address] [email or web address] PCP - General Family Medicine 06/05/22 05/25/23 Arlet Singh MD, MPH [address] [place] [address] [email or web address] PCP - General Family Medicine 05/26/23 Cheyenne Oshea MD [address] [place] [address], [facility] [address] [place] [address] [email or web address] Historical LMR Provider 05/23/17 08/12/21 Baltazar Burnham MD [address] [place] [address] [email or web address] Historical LMR Provider 05/23/17 08/12/21 documented as of this encounter Additional Source Comments The information contained in this document represents components of the legal health record. It is not the complete legal health record.[facility]
--- OUTSIDE RECORDS SUMMARY | 2025-05-29 19:37 | XMS_ITS | Encounter Summary ---
Author Organization [facility] Address [address] [facility] [address] [place] [address] Phone Care Team Providers Care Desk Maker Name Role Phone Cheyenne Oshea MD Unavailable [phone] Baltazar Burnham MD Unavailable Baltazar Burnham MD Primary Care Provider [phone] Anna Taylor MD Primary Care Provider [phone] Arlet Singh MD, MPH Primary Care Provider + Encounter Details Date Type Department Care Team (Late st Contact Info) Description 01/30/2021 Procedure Pass [facility] Endoscopy Admitting Dept Virtual Department [address] [place] [address] Social History Tobacco Use Types [...] on filedocumented in this encounter Care Teams Desk Maker Relationship Specialty Start Date End Date Baltazar Burhnam MD [address] [facility] [address] [place] [address] [email or web address] PCP - General 08/08/17 06/04/22 Anna Taylor MD [address] [facility] [address] [place] [phone] PCP - General Family Medicine 06/05/22 05/25/23 Arlet Singh MD, MPH [address] [place] [phone] [email or web address] PCP - General Family Medicine 05/26/23 Cheyenne Oshea MD [address] [place] [address], [facility] [address] [place] [address] [email or web address] Historical LMR Provider 05/23/17 08/12/21 Baltazar Burnham MD [address] [facility] [address] [place] [address] [email or web address] Historical LMR Provider 05/23/17 08/12/21 documented as of this encounter Additional Source Comments The information contained in this document represents components of the legal health record. It is not the complete legal health record.[facility]
--- OUTSIDE RECORDS SUMMARY | 2025-05-29 19:37 | XMS_ITS | Clinical Summary ---
Author Organization [facility] Address [address] [facility] [address] [place] [address] Phone Care Team Providers Care Retail Visual Merchandiser Name Role Phone Arlet Singh MD, MPH [...] 09/03/2022 Are you denied basic needs [facility] as food, clothing, or medical care? [...] FOBT 2011 SIGMOIDOSCOPY 2011 VIRTUAL COLONOSCOPY 2011 RSV VACCINE (1 - Risk 50-74 years 1-dose series) 2016 DIABETIC EYE EXAM 08/13/2022 HEMOGLOBIN A1C 02/11/2023 08/14/2022 CREATININE LEVEL 08/14/2023 08/14/2022, 04/2023, 07/27/2022, Additional history exists POTASSIUM LEVEL 08/14/2023 08/14/2022, 01/0 04/2023, 07/27/2022, Additional history exists INFLUENZA VACCINE (#1) 2025 2, 05/23/2021, 04/16/2021, Additional history exists COVID-19 VACCINE (2024- season) 2025 06/03/2022, 08/13/2021, 12/06/2020, Additional history [...] SEE NARRATIVE - 05/08/2023 2:55 PM EDT [address] [address] Horse Exerciser: Ira Matt MD TOILET AND LAUNDR[employer] SOAP SUPERVISOR Cytology Report FINAL DIAGNOSIS A. PAP SMEAR [...] 59, 66, 68) Note: Testing performed by [employer] HR-HPV analysis. Clinical correlation is advised. This HPV test was performed at [facility], [address] [place] [address]. This test has been FDA approved for [facility] cervical cytology specimens. The accuracy and precision of this test for all other specimen sources has been verified in the Cytopathology Laboratory of the [facility] and has not been cleared or approved by the U.S. Food and Drug Administration. Clinical correlation is advised. CLINICAL HISTORY Date of Last Menstrual Period: Not Provided Menstrual History: Unknown Other Clinical Conditions: Screening Pap SPECIMEN SOURCE A: PAP SMEAR (SUREPATH) CE Patient Name: YARELY CONDE : 1965 (Age: 57) Sex: F Institution: [facility] Location: [facility] Date of Collection: 05/06/2023 Date of Reported: 05/08/2023 14:55 Results to: Katheryn Izquierdo Katheryn CERRATO CYTOLOGY ORDERABLE S Final Result SEE NARRATIVE * (ABNORMAL) Hemoglobin A1c (08/14/2022 5:26 AM EST) HEMOGLOBIN A1C 7.7(H) 4.3 - 5.8 % [facility] Blood 08/14/2022 5:26 AM EST 08/14/2022 7:22 AM EST William Montoya MD LAB BLOOD ORDERABLES Final Result Performing Organization Address [facility]/ZIP Co de Phone Number [address] [address] * (ABNORMAL) Basic metabolic panel (08/14/2022 5:26 AM EST) SODIUM 140 133 - 146 mmol/L [facility] CHLORIDE 104 96 - 108 mmol/L [facility] POTASSIUM 3.7 3.3 - 5.1 mmol/L [facility] CO2 27 21 - 35 mmol/L [facility] BUN 15 6 - 19 mg/dL [facility] CREATININE 0.80 0.5 - 1.5 mg/dL [facility] GLUCOSE 113(H) 70 - 99 mg/dL [facility] CALCIUM 8.9 8.4 - 10.3 mg/dL [facility] EGFR 86 >59 mL/min/1.7 3m2 [facility] Comment:Estimated glomerular filtration rate calculated using the CKD-EPI refit equation. ANION GAP 13 10 - 20 mmol/L [facility] Blood 08/14/2022 5:26 AM EST 08/14/2022 6:17 AM EST William Montoya MD LAB BLOOD ORDERABLES Final Result Performing Organization Address [facility]/ZIP Co de Phone Number [address] [address] * ENDOSCOPY, COLON (01/30/2021 7:49 AM EDT) Narrative Transcriptions Jason Hair MD - 01/30/2021 7:49 AM EDT Patient Name: Yarely Conde Attending MD:: JASON HAIR MD Procedure Date: 01/30/2021 7:49 AM Date of : 1965 Age: 55 Admit Type: Outpatient Gender: Female Room: [place] [address] Referring MD: Baltazar Burnham MD Exam Type: [...] 7:49 AM Procedure Code(s): --- Professional --- 88121, Colonoscopy, flexible; diagnostic, including collection of specimen(s) by brushing or washing, when performed (separateprocedure) --- Technical --- 37913, Colonoscopy, flexible; diagnostic, including collection of specimen(s) by brushing or washing, when performed (separateprocedure) Diagnosis Code(s): --- Professional --- R10.84, Generalized abdominal pain R63.4, Abnormal weight loss Q43.8, Other specified congenital malformations of intestine --- Technical --- R10.84, Generalized abdominal pain R63.4, Abnormal weight loss Q43.8, Other specified congenital malformations of intestine CPT copyright 2018 [employer]. All rights reserved. The codes documented in this report are preliminary and upon property claims manager reviewmay be revised to meet current compliance requirements. Procedure Date: 01/30/2021 7:49:43 AM [address] [place] [address] Baltazar Burnham MD GI PROCEDURE ORDERABLES Final Re sult from Last 3 Months or Most Recently Relevant to Health Maintenance Insurance [facility] [employer] [facility] DIRECT [facility] PUBLIC PLANS DIRECT PUBLIC PLANS DIRECT PUBLIC PLANS DIRECT [employer] DIRECT [facility] [employer] [place] [address] [place] [address] [employer] DIRECT [facility] [employer] PLANS DIRECT Advance Directives For more information, please contact: [phone] (9AM - 5PM [facility], Saturday-Saturday) * Full Code (Latest Code Status on File) Date Activated Date Inactivated Comments 08/13/2022 8:13 PM Question Answer Comments Code Status Confirmed With: Patient Care Teams Retail Visual Merchandiser Relationship Specialty Start Date End Date Arlet Singh MD, MPH [address] [place] [address] PCP - General Family Medicine 05/26/23 Additional Source Comments The information contained in this document represents components of the legal health record. It is not the complete legal health record.[facility]
--- OUTSIDE RECORDS SUMMARY | 2025-05-29 19:37 | XMS_ITS | Encounter Summary ---
Author Organization [facility] Address [address] [facility] [address] [place] [address] Phone Care Team Providers Care Drawing In Hand Name Role Phone Anna Taylor MD Primary Care Provider [phone] Arlet Singh MD, MPH Primary Care Provider + Encounter Details Date Type Department Care Team (Late st Contact Info) Description 07/27/2022 Procedure Pass [facility], Ct Scan - [address] [address] Social History Tobacco Use Types Packs/Day Years [...] 07/27/2022 10:51 AM Krista Noe RN * [place] Suicide Severity Rating Scale (Screener/Recent Self-Report) Question [...] on filedocumented in this encounter Care Teams Drawing In Hand Relationship Specialty Start Date End Date Anna Taylor MD [email or web address] PCP - General Family Medicine 06/05/22 05/25/23 Arlet Singh MD, MPH [address] [place] [address] [email or web address] PCP - General Family Medicine 05/26/23 documented as of this encounter Additional Source Comments The information contained in this document represents components of the legal health record. It is not the complete legal health record.[facility]
--- NOTE | 2025-05-29 20:39 | PC.NURSE ---
PT vomiting at this time SAQIB Pompa aware verbal orders for zofran and fluids placed
--- NOTE | 2025-05-29 21:05 | PC.NURSE ---
PT from triage coming from home AOx4 ambulatory chief complaint of N/V/D and fever/chills x2 days. PT is diabetic and reports no food/liquid intake x2 days. also reports administering 3x her prescribed dose of humalog (10 units) today at noon. PT presents with active nausea/vomiting. 20G PIV placed in L AC. 1000ml NS running and 4mg IV zofran administered. VSS
[2025-05-29] MEDS: Magnesium Sulfate/H2O 2 GM/50 ML PIGGYBACK IV (21:21)
[2025-05-29 21:44] LABS: VBG HCO3 27 mmol/L (22-26); VBG O2 % Saturation 74.0 %
[2025-05-29 21:44] LABS: Venous Blood Gas Refer to POC result
[2025-05-29] MEDS: iohexoL 350 MG/ML 100 ML INFUS..BTL 85 ML IV (22:39)
[2025-05-29 22:57] VITALS: BP 139/72; PULSE 101; RESP 18; O2SAT 97
[2025-05-30 01:25] VITALS: BP 132/78; PULSE 68; RESP 16; TEMP 36.6; O2SAT 98
== END 2025-05-30 01:27 | disposition home or self-care (01) ==
PROVIDERS: Physician Assistant; Emergency Provider Emergency Medicine; PCP Family Medicine
DX: K52.9 Noninfective gastroenteritis and colitis, unspecified (principal); R73.9 Hyperglycemia, unspecified; R10.32 Left lower quadrant pain; R11.2 Nausea with vomiting, unspecified; R51.9 Headache, unspecified; I10 Essential (primary) hypertension; E78.5 Hyperlipidemia, unspecified; K21.9 Gastro-esophageal reflux disease without esophagitis; D50.9 Iron deficiency anemia, unspecified; Z03.818 Encounter for observation for suspected exposure to other biological agents ruled out
CPT/HCPCS: 36415; 74177; 80048; 80076; 81001; 82010; 82803; 83690; 83735; 85025; 87502; 87635; 93005; 96361; 96365; 96375; 99285; J2405; J2765; J3475; Q9967

== ENCOUNTER → 2025-05-29 16:57 | Outpatient (BNV) | payer OTHER, SELFPAY | PROVIDERS: Emergency Provider Emergency Medicine; PCP Family Medicine; Visit Provider Internal Medicine Cardiovascular Disease | DX: I49.3 Ventricular premature depolarization (principal); R00.0 Tachycardia, unspecified | CPT/HCPCS: 93010 ==

== ENCOUNTER → 2025-05-29 21:15 | Outpatient (BNV) | payer OTHER, SELFPAY | PROVIDERS: Emergency Provider Emergency Medicine; PCP Family Medicine; Visit Provider Radiology Diagnostic Radiology | DX: R10.814 Left lower quadrant abdominal tenderness (principal) | CPT/HCPCS: 74177 ==

== ENCOUNTER 2025-06-16 12:51 | Emergency (ER) | payer OTHER, SELFPAY ==
--- OUTSIDE RECORDS SUMMARY | 2013-05-25 23:00 | XMS_ITS | Encounter Summary ---
Author Organization [facility] Address [address] [facility] [address] [place] [address] Phone Care Team Providers Care Frame Expander Name Role Phone Unavailable Primary Care Provider Unavailabl e Encounter Details Date Type Department Care Team (Late st Contact Info) Description 05/26/2013 Hospital Encounter [facility],Outside Imaging [address] [place], [place] [phone] Unknown, Unknown, Social History Tobacco Use Types [...] 08/13/2022 4:58 PM Carol Orozco RN * [place] Suicide Severity Rating Scale (Screener/Recent Self-Report) Question [...] It is not the complete legal health record.[facility]
--- OUTSIDE RECORDS SUMMARY | 2013-05-27 23:00 | XMS_ITS | Encounter Summary ---
Author Organization [facility] Address [address] [facility] [address] [place] [address] Phone Care Team Providers Care Tar And Ammonia Pump Operator Name Role Phone Unavailable Primary Care Provider Unavailabl e Encounter Details Date Type Department Care Team (Late st Contact Info) Description 05/28/2013 Hospital Encounter [facility],Outside Imaging [address] [place], [place] [phone] Unknown, Unknown, Social History Tobacco Use Types [...] 08/13/2022 4:58 PM Carol Orozco RN * [place] Suicide Severity Rating Scale (Screener/Recent Self-Report) Question [...] Procedure Name Priority Date/Time Associated Diagnosis Comments MRI SPINE MUSCULOSKELETAL FOCUS OUTSIDE (NO INTERPRETATION) Routine 05/28/2013 12:00 AM EDT documented in this encounter Results * MRI Spine (Bone) Outside (No Interpretation) (05/28/2013 12:00 AM EDT) Narrative SYSTEMGENERATED, DOCUMENTATION - [...] It is not the complete legal health record.[facility]
--- NOTE | ~2025-06-16 | XR_ITS ---
EXAMINATION: XR CHEST CLINICAL INFORMATION: new onset afib COMPARISON: May 10, 2025 TECHNIQUE: Frontal view of the chest was obtained. FINDINGS: Poor inspiration. No consolidation, pleural effusion or pneumothorax. Cardiomediastinal silhouette size is normal. Mild multilevel thoracolumbar spondylosis. XR/XR chest 1V IMPRESSION: Poor inspiration No acute airspace disease. Electronically signed by: Jozef Nelson MD 06/16/2025 03:08 PM [facility]
--- NOTE | 2025-06-16 12:55 | ECG_ITS ---
Test Reason : afib? Blood Pressure : */* mmHG Vent. Rate : 115 BPM Atrial Rate : * BPM P-R Int : * ms QRS Dur : 92 ms QT Int : 284 ms P-R-T Axes : * 18 1 degrees QTcB Int : 392 ms Atrial fibrillation with rapid ventricular response Abnormal ECG When compared with ECG of 29-May-2025 17:35, Atrial fibrillation has replaced Sinus rhythm Referred By: Gricelda Bowden Electronically Signed By: KAYLEEN LOPEZ MD
[2025-06-16 13:05] VITALS: BP 105/57; PULSE 69; RESP 16; TEMP 37; O2SAT 96; BMI 29.3
--- NOTE | 2025-06-16 13:05 | ED.GENADULT ---
HPI - General Adult General Chief complaint: Arrhythmia/Palpitations Stated complaint: afib? Time Seen by Provider: 06/16/25 13:25 Source: patient Mode of arrival: ambulatory Limitations: no limitations History of Present Illness ED Provider: HPI narrative: 59-year-old woman with a history of diabetes, hypertension, presenting with atrial fibrillation, patient states this sensations that she was experiencing has been essentially weird , and she did not know that this was correlating to atrial fibrillation until she had a smart watch that noted that her heart rate went up to 140s and that she is in AFib. Has been on and off for the past 1 year, she does take metoprolol among of her other meds for blood pressure management, nondrinker nonsmoker, Related Data Home Medications ?Medication ?Instructions ?Recorded ?Confirmed acetaminophen 500 mg tablet 2 tab PO Q6H PRN pain 10/01/22 05/10/25 atorvastatin 10 mg tablet 1 tab PO DAILY 10/01/22 05/10/25 dulaglutide 1.5 mg/0.5 mL 0.75 mg subcut QWEEK 10/01/22 05/10/25 subcutaneous pen injector (Trulicity) ferrous sulfate 324 mg (65 mg 1 tab PO BID 10/01/22 05/10/25 iron) tablet,delayed release gabapentin 600 mg tablet 1 tab PO TID 10/01/22 05/10/25 insulin glargine 100 unit/mL (3 35 unit subcut DAILY 10/01/22 05/10/25 mL) subcutaneous pen (Lantus Solostar U-100 Insulin) metformin 1,000 mg tablet 1 tab PO BID 10/01/22 05/10/25 trazodone 100 mg tablet 2 tab PO BEDTIME PRN insomnia 10/01/22 05/10/25 bupropion HCl 300 mg 24 hr tablet, 300 mg PO DAILY 04/30/23 05/10/25 extended release flash glucose scanning reader 04/30/23 05/10/25 (FreeStyle [place]) hydrochlorothiazide 25 mg tablet 25 mg PO DAILY 04/30/23 05/10/25 lisinopril 40 mg tablet 40 mg PO DAILY 04/30/23 05/10/25 loratadine 10 mg tablet 10 mg PO DAILY 04/30/23 05/10/25 metoprolol succinate 25 mg 25 mg PO DAILY 04/30/23 05/10/25 tablet,extended release 24 hr omeprazole 20 mg capsule,delayed 20 mg PO BID 04/30/23 05/10/25 release venlafaxine 150 mg 150 mg PO BID 04/30/23 05/10/25 capsule,extended release 24 hr insulin lispro 100 unit/mL 5 - 10 unit subcut TID 08/09/23 05/10/25 subcutaneous pen (Humalog KwikPen (U-100) Insulin) insulin lispro 100 unit/mL 5 - 10 unit subcut TID 08/09/23 05/10/25 subcutaneous pen (Humalog KwikPen (U-100) Insulin) hyoscyamine sulfate 0.125 mg 0.125 mg PO Q4H PRN abdominal pain 07/07/24 05/10/25 disintegrating tablet Previous Rx's ?Medication ?Instructions ?Recorded cholecalciferol (vitamin D3) 125 125 mcg PO DAILY #90 tabs 05/18/25 mcg (5,000 unit) tablet (Vitamin D3) acetaminophen 500 mg capsule 1,000 mg (2 x 500 mg) PO .q8 PRN 05/30/25 fever or pain #30 caps ibuprofen 600 mg tablet 600 mg PO Q8H PRN fever or pain 05/30/25 #30 tabs ondansetron 4 mg disintegrating 4 mg PO Q8H PRN nausea and 05/30/25 tablet vomiting #14 tabs apixaban 5 mg tablet (Eliquis) 5 mg PO BID 45 days #90 tabs 06/16/25 Allergies Allergy/AdvReac Type Severity Reaction Status Date / Time No Known Allergies Allergy Verified 06/16/25 13:09 Review of Systems Constitutional: Constitutional: Reports as per HPI [facility] Past Medical History Medical History Fusion of lumbar spine Back pain with history of spinal surgery Atrial septal defect Bunion of unspecified foot delivery delivered Iron deficiency anemia High blood pressure Diabetes Surgical History Gastric bypass status for obesity H/O heart surgery Social History Social History Household Members: Family Alcohol intake: never Patient Tobacco Use Status: Never used Tobacco Smoked in Last 30 Days: No Use of substances other than those prescribed or required for medical reasons: No Advance Directives: No Advance Directives Information Provided: Yes service: No Current occupational status: employed Physical Exam ED Exam Exam: General: ?Appears of stated age ? ?PERRLA, EOMI, MMM, ? Neck: Supple, no LAD ? ?CV: Irregular pulse, S1 S2, patient stated she has a murmur but I am not able to appreciated ? ?Resp: ?No wheezing rales rhonchi no stridor moving air well ? Abd: ?Bowel sounds are present, no tenderness no rebound no rigidity ? ?MSK: FROM, strength 5/5 all extremities no lower extremity edema ? Skin: Warm, dry, intact, ? ?Neuro: ?Alert and oriented x3, moving upper and lower extremities symmetrically, no obvious facial asymmetry noted, cranial nerves 2-12 intact Vital Signs: Vital Signs - 24 hr 06/16/25 13:05 06/16/25 13:37 Temperature 98.6 F Pulse Rate 69 115 H Respiratory Rate 16 Blood Pressure 105/57 L Pulse Oximetry 96 Oxygen Delivery Method Room Air BMI result Body Mass Index 29.3 Course Course Course Narrative: This is a Rapid Medical Examination (RME) performed by Angelo Bowden PA-C in triage. Full HPI, ROS, assessment and treatment plan per primary provider in the Main ED. Hx: 59 yo F here for eval of palpitations, weakness, dizziness x today. reports assoc MAYERS while walking her dog this morning. her watch noted pulse of 140 w/ afib, seen at , advised to come to ED. reports similar sensation - no formal diagnosis or afib. Plan: labs, ekg Medications Administered Generic Name Dose Route Start Last Admin Trade Name Freq PRN Reason Stop Dose Admin Sodium Chloride 1,000 mls @ 999 mls/hr 06/16/25 15:00 06/16/25 15:01 Ns IV 06/16/25 16:00 999 mls/hr .Q1H1M NEGIN Administration Discontinued Medications Generic Name Dose Route Start Last Admin Trade Name Freq PRN Reason Stop Dose Admin Metoprolol Tartrate 2.5 mg 06/16/25 14:00 06/16/25 14:19 Metoprolol Tartrate 5 Mg/5 Ml Vial IVPUSH 11/12/25 14:01 2.5 mg ONCE ONE Administration Protocol Metoprolol Tartrate 12.5 mg 06/16/25 14:00 06/16/25 15:06 Metoprolol Tartrate 12.5 Mg Halftab PO 06/16/25 14:01 12.5 mg ONCE ONE Administration Protocol Medical Decision Making Medical Decision Making MDM Narrative: 2:05 PM 06/16/2025 (Dr. Jhonathan Suero): Patient is presenting with new diagnosis of atrial fibrillation in the setting of now having a smart watch that told her that her heart rate is elevated and she is in AFib, sounds like she has had these symptoms on and off throughout the past 1 year, at the time of my evaluation patient's heart rate is just over 110, she presented apparently and was not 140s, she does take metoprolol 25 mg daily, I will I am going to hold her off on that as she also reported that her blood pressure medication had to be adjusted because her blood pressure was getting too low, I am going to recommend patient get in touch with the PCP and in the meantime if she feels that her heart rate is becoming faster than 110 I can provide her with a regimen possibly initially taking 12.5 mg seeing how she is doing to extra 25 mg daily and so typical dose of 25 mg twice a day can be achieved safely and I will start her on Eliquis, her chads 2 Vasc score is a 3 and has bled score is a 0 2:56 PM 06/16/2025 (Dr. Jhonathan Suero): Workup has been reassuring , heart rate with good control, see my discharge instructions Differential Diagnosis Differential Diagnoses: The differential diagnosis associated with the presentation includes (Dehydration, ACS, electrolyte derangements, PE, atrial flutter) Admission/Observation Consideration of admission/observation: Escalation of care including admission/observation considered [id number] Score for Atrial Fibrillation Stroke Risk from [email or web address] on 06/16/2025 All calculations should be rechecked by clinician prior to use RESULT SUMMARY: 3 points Stroke risk was 3.2% per year in >90,000 patients (the [place] Atrial Fibrillation Cohort Study) and 4.6% risk of stroke/TIA/systemic embolism. INPUTS: Age ?> 0 = <65 Sex ?> 1 = Female CHF history ?> 0 = No Hypertension history ?> 1 = Yes Stroke/TIA/thromboembolism history ?> 0 = No Vascular disease history (prior DC, peripheral artery disease, or aortic plaque) ?> 0 = No Diabetes history ?> 1 = Yes HAS-BLED Score for Major Bleeding Risk from [email or web address] on 06/16/2025 All calculations should be rechecked by clinician prior to use RESULT SUMMARY: 0 points Risk was 0.9% in one validation study (Cody 2010) and 1.13 bleeds per 100 patient-years in another validation study (Pisters 2010). Anticoagulation should be considered: Patient has a relatively low risk for major bleeding (~1/100 patient-years). INPUTS: Hypertension ?> 0 = No Renal disease ?> 0 = No Liver disease ?> 0 = No Stroke history ?> 0 = No Prior major bleeding or predisposition to bleeding ?> 0 = No Labile INR ?> 0 = No Age >65 ?> 0 = No Medication usage predisposing to bleeding ?> 0 = No Alcohol use ?> 0 = No Lab Data MDM Lab Attestation statement: I reviewed the patient's lab results. 06/16/25 13:26 06/16/25 13:26 Labs: Lab Results 06/16/25 Range/Units 13:26 WBC 7.2 (4.8-10.8) X10*3/uL RBC 4.56 (4.20-5.50) X10*6/uL Hgb 14.2 (12.0-16.0) g/dl Hct 42.2 (37.0-47.0) % MCV 92.5 (80.0-98.0) fL MCH 31.1 (27.0-33.0) pg MCHC 33.6 (31.0-35.0) g/dl RDW 12.4 (11.0-16.0) % Plt Count 297 (160-400) X10*3/uL MPV 9.1 L (9.4-12.3) fL Immature Gran % (Auto) 0.3 (0.0-0.4) % Neut % (Auto) 53.5 (45-73) % Lymph % (Auto) 32.9 (20-40) % [place] % (Auto) 10.8 (2-11) % Eos % (Auto) 1.7 (0-4) % Baso % (Auto) 0.8 (0-2) % Lymph # (Auto) 2.4 (1.2-4.9) X10*3/uL [place] # (Auto) 0.8 (0.1-1.2) X10*3/uL Eos # (Auto) 0.1 (0.0-0.4) X10*3/uL Baso # (Auto) 0.1 (0.0-0.2) X10*3/uL Abs Immat Gran (auto) 0.02 (0.00-0.03) X10*3/uL Absolute Neuts (auto) 3.9 (2.0-8.3) x10*3/uL Absolute Nucleated RBC 0.000 (0.0-0.012) X10*3/uL Nucleated RBC % (auto) 0.0 (0.0-0.2) /100WBC Sodium 136 (135-145) mmol/L Potassium 4.6 (3.3-5.1) mmol/L Chloride 104 (96-108) mmol/L Carbon Dioxide 21 L (22-29) mmol/L Anion Gap 16 (12-20) BUN 36 H (9-16) mg/dL Creatinine 1.50 H (0.5-1.4) mg/dL Estim Creat Clear Calc 42.7 Estimated GFR 36 Random Glucose 112 (60-115) mg/dL Calcium 9.8 D (8.4-10.2) mg/dL Magnesium 2.0 (1.6-2.6) mg/dL Total Bilirubin 0.3 (0.0-1.0) mg/dL AST 26 (5-31) U/L ALT 27 (0-31) U/L Alkaline Phosphatase 70 (39-117) U/L Troponin I High Sens < 2.7 (<3.5-17.0) ng/L Total Protein 7.8 (6.5-8.0) g/dL Albumin 4.7 (3.5-5.0) g/dL TSH 0.34 (0.32-4.0) uIU/mL Independent Interpretation I performed an independent interpretation of an: EKG (115 beats per minute, AFib, this is new compared to prior ECGs in our system) Radiology Impression Discussion of test interpretation with radiology: I have reviewed the radiologist's reading. Chronic Conditions Patient?s care impacted by: Diabetes and Hypertension Critical Care Time Critical Care Time Critical Care Time: Yes Total Critical Care Time: 35 Attestation: Time is exclusive of separately billable procedures. Time includes: direct patient care, patient reassessment, coordination of patient care, interpretation of data (laboratory data, pulse oximetry, arterial blood gases and chest xrays), review of patient's medical records, medical consultation and documentation of patient care. Procedures excluded from critical care time: central intravenous line placement and electrocardiography. Discharge Plan Discharge Clinical Impression: Atrial fibrillation Patient Disposition: Home, Self-Care Instructions: A-fib (Atrial Fibrillation) (ED) Additional Instructions: Eliquis 5 mg twice a day I am providing you with a 45 day supply until you see a PCP, as discussed continue all your other medications including metoprolol 25 mg and if your heart rate creeps up over 110 beats per minute initially take 12.5 mg of metoprolol then another 12.5 mg after few hours, if that works you can just take 25 mg of metoprolol twice daily just make sure to monitor your blood pressure make sure it is not too low and you are not symptomatic feeling dizzy or feeling like you going to pass out. Your blood work has been reassuring, there was some evidence of slight dehydration, please push fluids today. Prescriptions: New Eliquis 5 mg tablet 5 mg PO BID 45 Days Qty: 90 0RF No Action gabapentin 600 mg tablet 1 tab PO TID atorvastatin 10 mg tablet 1 tab PO DAILY acetaminophen 500 mg tablet 2 tab PO Q6H PRN (Reason: pain) trazodone 100 mg tablet 2 tab PO BEDTIME PRN (Reason: insomnia) metformin 1,000 mg tablet 1 tab PO BID ferrous sulfate 324 mg (65 mg iron) tablet,delayed release (DR/EC) 1 tab PO BID insulin glargine [Lantus Solostar U-100 Insulin] 100 unit/mL (3 mL) insulin pen 35 unit subcut DAILY Trulicity 1.5 mg/0.5 mL pen injector 0.75 mg subcut QWEEK venlafaxine 150 mg capsule,extended release 24hr 150 mg PO BID omeprazole 20 mg capsule,delayed release(DR/EC) 20 mg PO BID hydrochlorothiazide 25 mg tablet 25 mg PO DAILY metoprolol succinate 25 mg tablet extended release 24 hr 25 mg PO DAILY lisinopril 40 mg tablet 40 mg PO DAILY loratadine 10 mg tablet 10 mg PO DAILY bupropion HCl 300 mg tablet extended release 24 hr 300 mg PO DAILY (DME) FreeStyle [place] Misc MISCELLANEOUS QID insulin lispro [Humalog KwikPen Insulin] 100 unit/mL insulin pen 5 - 10 unit subcut TID insulin lispro [Humalog KwikPen Insulin] 100 unit/mL insulin pen 5 - 10 unit subcut TID hyoscyamine sulfate 0.125 mg tablet,disintegrating 0.125 mg PO Q4H PRN (Reason: abdominal pain) cholecalciferol (vitamin D3) [Vitamin D3] 125 mcg (5,000 unit) Tablet 125 mcg PO DAILY Qty: 90 3RF acetaminophen 500 mg capsule 1,000 mg PO .q8 PRN (Reason: fever or pain) Qty: 30 0RF ibuprofen 600 mg tablet 600 mg PO Q8H PRN (Reason: fever or pain) Qty: 30 0RF ondansetron 4 mg tablet,disintegrating 4 mg PO Q8H PRN (Reason: nausea and vomiting) Qty: 14 0RF Print Language: Croatian
[2025-06-16 13:30] LABS: MANUAL DIFF FLAG NO
[2025-06-16 13:31] LABS: Hematocrit 42.2 % (37.0-47.0); Hemoglobin 14.2 g/dl (12.0-16.0); Imm Gran Abs Auto 0.02 X10*3/uL (0.00-0.03); Imm Gran Pct Auto 0.3 % (0.0-0.4); Lymphocytes Absolute Auto 2.4 X10*3/uL (1.2-4.9); Mean Corpuscular HGB Conc 33.6 g/dl (31.0-35.0); Mean Corpuscular Hemoglobin 31.1 pg (27.0-33.0); Mean Corpuscular Volume 92.5 fL (80.0-98.0); NRBC Abs Auto 0.000 X10*3/uL (0.0-0.012); NRBC Pct Auto 0.0 /100WBC (0.0-0.2); Platelet Count 297 X10*3/uL (160-400); Red Blood Count 4.56 X10*6/uL (4.20-5.50); White Blood Count 7.2 X10*3/uL (4.8-10.8)
[2025-06-16 13:37] VITALS: PULSE 115
[2025-06-16 13:49] LABS: Alanine Aminotransferase 27 U/L (0-31); Albumin Level 4.7 g/dL (3.5-5.0); Alkaline Phosphatase 70 U/L (39-117); Anion Gap 16 (12-20); Aspartate Amino Transferase 26 U/L (5-31); Blood Urea Nitrogen 36 mg/dL (9-16); Calcium 9.8 mg/dL (8.4-10.2); Carbon Dioxide 21 mmol/L (22-29); Chloride 104 mmol/L (96-108); Creatinine Clr Calc Pharmacy 42.7; Estimated Glomerular Filt Rate 36; Magnesium 2.0 mg/dL (1.6-2.6); Potassium 4.6 mmol/L (3.3-5.1); Sodium 136 mmol/L (135-145); Total Protein 7.8 g/dL (6.5-8.0)
[2025-06-16 13:59] LABS: Troponin-I High Sensitivity < 2.7 ng/L (<3.5-17.0)
--- NOTE | 2025-06-16 14:21 | PC.NURSE ---
Patient reports cariadd frias told her she was in afib and to see medical help. Patient reports sob, feeling week and can feel heart racing. no previous hx of afib. States frias is new and she has had these episodes multiple times in the past but they usually resolve within x 1 hour
[2025-06-16 14:40] LABS: Thyroid Stimulating Hormone 0.34 uIU/mL (0.32-4.0)
[2025-06-16] MEDS: Metoprolol Tartrate 12.5 MG HALFTAB PO (15:06)
[2025-06-16 16:08] VITALS: BP 109/77; PULSE 88; RESP 12; O2SAT 95
[2025-06-16 16:11] VITALS: BP 109/77; PULSE 88; RESP 12; TEMP 36.6; O2SAT 95
--- OUTSIDE RECORDS SUMMARY | 2025-06-16 16:39 | XMS_ITS | Clinical Summary ---
Author Organization [address] [facility] Address [address] [place] [address] Phone Care Team Providers Care Change Booth Attendant Name Role Phone Katheryn Izquierdo Primary Care [...] to allow for permissive hypertension Diabetes mellitus ([facility] V24, [facility] V28) Overview (07/01/2024): Last Assessment & [...] for a right SI joint injection at [facility]. As she has no back pain, we [...] adjustment. Appt scheduled with Barbara. Referral to [facility] [place] for intensive self management. 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 Overview (07/01/2024): surgical repair age 25 IMO update Other specified hemorrhagic conditions (CMS/[facility] V24) 08/07/2006 Overview (07/01/2024): age 5 [...] HISTORICAL DELIVERY; COMMENT: times 2 BUNIONECTOMY PROCEDURE: [place] CORRJ HLX VLGS BNCTY SESMDC W/DOUBLE OSTEOTOMY; COMMENT: bilateral OTHER SURGICAL HISTORY PROCEDURE: [place] RADIAL KERATOTOMY; COMMENT: lasix surger x 9 [...] V24) 08/07/2006 DX:Other specified hemorrhag ic conditions ([facility]); COMMENT: age 5 Type II or [...] uncontrolled Diabetes mellitus type II, c ontrolled ([facility] V24, [facility] V28) 11/12/2007 DX:Diabetes mellitus type I I, controlled ([facility]) Esophageal reflux DX:Esophageal reflux Essential hypertension, benign D X:Essential hypertension, benign Lumbar disc herniation 06/16/2012 DX:Lumbar disc herniation Obesity 07/11/2012 DX:Obesity Hypoglycemia DX:Hypoglycemia Vitamin D deficiency DX:Vitamin D deficiency Major depressive disorder DX:Duglas or depressive disorder Insomnia DX:Insomnia Otitis externa DX:Otitis journal entry audit clerk a Impacted cerumen DX:Impacted cer umen Other seasonal allergic rhinitis DX:Other seasonal allergic rhinitis Cholecystitis DX:Cholecystitis Low back pain DX:Low back pain Neuropathy DX:Neuropathy Severe diabetic hypoglycemia ([facility] V24, [facility] V28) DX:Severe diabetic hypoglyce darleen ([facility]) Seasonal allergic rhinitis 08/22/2022 DX:Se asonal allergic rhinitis Postmenopausal bleeding DX:Postm enopausal bleeding Abnormal weight gain DX:Abnormal weight gain Type 2 diabetes mellitus, co ntrolled ([facility] V24, [facility] V28) 08/22/2022 DX:Type 2 diabetes mellitus , controlled ([facility]) Family History Medical History Relation Name Comments Hypertension Father [place], colon polyps at 67, metastatic cancer with [...] BMP Blood Test (08/14/2022) Pathologist [facility] Annual BMP Blood Test abstracted us Historical Provider HEALTH MAINTENANCE Final Result * Hemoglobin A1c (08/14/2022) Hemoglobin A1C 0.0 % Comment:no interpretation, a bstracted Blood Venous blood specimen / Unknown [facility] Provider MD LAB BLOOD ORDERABLES Sandee l Result * Lipid panel (08/14/2022) [facility] Triglycerides 0 mg/dL Comment:no interpretation, a bstracted Cholesterol 0 mg/dL Comment:no interpretation, a bstracted HDL 0 mg/dL Comment:no interpretation, a bstracted LDL Cholesterol 0 mg/dL Comment:no interpretation, a bstracted Blood Venous blood specimen / Unknown [facility] Provider LAB BLOOD ORDERABLES Sandee l Result * Urine Albumin Creatinine Ratio (01/30/2013) [facility] Urine Albumin Creatinine Ratio abstracted [facility] Provider HEALTH MAINTENANCE Final Result * Cervical Cancer Screening: HPV (06/09/2012) [facility] Cervical Cancer Screening: HPV no interpretation , abstracted [facility] Provider HEALTH MAINTENANCE Final Result from Last 3 Months or Most Recently Relevant to Health Maintenance Insurance [facility] [employer] [facility] [employer] [facility] Care Teams Change Booth Attendant Relationship Specialty Start Date End Date Katheryn Izquierdo PA [address] [place] [phone] PCP - General 07/09/22
--- OUTSIDE RECORDS SUMMARY | 2025-06-16 16:39 | XMS_ITS | Encounter Summary ---
Author Organization [facility] Address [address] [facility] [address] [place] [address] Phone Care Team Providers Care Oil And Gas Well Treatment Operator Name Role Phone Cheyenne Oshea MD Unavailable [phone] Baltazar Burnham MD Unavailable Baltazar Burnham MD Primary Care Provider [phone] Anna Taylor MD Primary Care Provider [phone] Arlet Singh MD, MPH Primary Care Provider + Reason for Referral * MRI/CAT Scan - Closed Specialty Diagnoses / Procedures Referred By Contac t Referred To Contact Radiology Diagnoses Abdominal pain, unspecified abdominal location Unintended weight loss Procedures CT Abdomen/Pelvis CHG CT SCAN,ABDOMENT AND PELVIS,W CONTRAST CHG CT SCAN,ABDOMENT AND PELVIS,COMBO CHG CT SCAN,ABDOMENT AND PELVIS,W/O CONTRAST Terry Self MD Phone: tel: fax: [email or web address]:[email or web address] Referral ID Status Reason Start Date Expiration Date Visits Re quested Visits Authorized [id number] Closed 01/30/2021 04/30/2021 1 1 Encounter Details Date Type Department Care Team (Latest Contact Info) Description 01/30/[address] [facility] [address] [place], [place] [id number] Terry Self MD [address] [place] [id number] [email or web address] Abdominal pain, unspecified abdominal location (Primary [...] loss documented in this encounter Care Teams Oil And Gas Well Treatment Operator Relationship Specialty Start Date End Date Baltazar Burnham MD [address] [place] [address] [email or web address] PCP - General 08/08/17 06/04/22 Anna Taylor MD [address] [place] [address] [email or web address] PCP - General Family Medicine 06/05/22 05/25/23 Arlet Singh MD, MPH [address] [place] [phone] [email or web address] PCP - General Family Medicine 05/26/23 Cheyenne Oshea MD [address] [place] [address], [facility] [address] [place] [address] [email or web address] Historical LMR Provider 05/23/17 08/12/21 Baltazar Burnham MD [address] [place] [address] [email or web address] Historical LMR Provider 05/23/17 08/12/21 documented as of this encounter Additional Source Comments The information contained in this document represents components of the legal health record. It is not the complete legal health record.[facility]
--- OUTSIDE RECORDS SUMMARY | 2025-06-16 16:39 | XMS_ITS | Encounter Summary ---
Author Organization [facility] Address [address] [place] [address] [place] [address] Phone Care Team Providers Care Neurodiagnostic Tech Name Role Phone Anna Taylor MD Primary Care Provider [phone] rAlet Singh MD, MPH Primary Care Provider + Reason for Referral * MRI/CAT Scan - Closed Specialty Diagnoses / Procedures Referred By Contmarybel t Referred To Contact Radiology Diagnoses Radiculopathy, lumbosacral region Left foot drop Procedures MRI Lumbar Spine CHG MRI, LUMBAR SPINE CHG MRI, LUMBAR SPINE COMBO CHG MRI, LUMBAR SPINE CONTRAST Katheryn Izquierdo PA Phone: tel: fax: mailto:[facility]ma Referral ID Status Reason Start Date Expiration Date Visits Re quested Visits Authorized [id number] Closed 05/06/2023 08/04/2023 1 1 Encounter Details Date Type Department Care Team (Late st Contact Info) Description 05/07/2023 Transcribe Orders Virtual Department [address] [place] [address] Katheryn Izquierdo PA [address] [place] [address] rach Radiculopathy, lumbosacral region (Primary Dx); Left [...] Suspected pars defects at L4. Katheryn [facility] MR XSPECIALTY Final Result documented in this encounter Visit Diagnoses Diagnosis Radiculopathy, lumbosacral region- Primary Thoracic or lumbosacral neuritis or radiculitis, unspecified Left foot drop Other acquired deformity of ankle and foot Radiculopathy, lumbosacral region Thoracic or lumbosacral neuritis or radiculitis, unspecified Left foot drop Other acquired deformity of ankle and foot documented in this encounter Care Teams Neurodiagnostic Tech Relationship Specialty Start Date End Date Anna Taylor MD [email or web address] PCP - General Family Medicine 06/05/22 05/25/23 Arlet Singh MD, MPH [address] [place] [id number] [email or web address] PCP - General Family Medicine 05/26/23 documented as of this encounter Additional Source Comments The information contained in this document represents components of the legal health record. It is not the complete legal health record.[facility]
--- OUTSIDE RECORDS SUMMARY | 2025-06-16 16:39 | XMS_ITS | Encounter Summary ---
Author Organization [facility] Address [address] [facility] [address] [place] [phone] Phone Care Team Providers Care Channel Marketing Coordinator Name Role Phone Anna Taylor MD Primary Care Provider [phone] Arlet Singh MD, MPH Primary Care Provider + Encounter Details Date Type Department Care Team (Late st Contact Info) Description 05/07/2023 Procedure Pass [facility], [address] [address] Social History Tobacco Use Types Packs/Day Years [...] on filedocumented in this encounter Care Teams Channel Marketing Coordinator Relationship Specialty Start Date End Date Anna Taylor MD PCP - General Family Medicine 06/05/22 05/25/23 Arlet Singh MD, MPH [address] [place] [id number] PCP - General Family Medicine 05/26/23 documented as of this encounter Additional Source Comments The information contained in this document represents components of the legal health record. It is not the complete legal health record.[facility]
--- OUTSIDE RECORDS SUMMARY | 2025-06-16 16:39 | XMS_ITS | Encounter Summary ---
Author Organization [facility] Address [address] [facility] [address] [place] [address] Phone Care Team Providers Care Journeyman Painter Name Role Phone Anna Taylor MD Primary Care Provider [phone] Arlet Singh MD, MPH Primary Care Provider + Encounter Details Date Type Department Care Team (Late st Contact Info) Description 07/27/2022 Procedure Pass [facility], Ct Scan - [address] [address] Social History Tobacco Use Types Packs/Day Years [...] 07/27/2022 10:51 AM Krista Noe RN * [place] Suicide Severity Rating Scale (Screener/Recent Self-Report) Question Answer Date of Assessment Author 1. Wish to be (Past 1 Month) No 022 10:51 AM Krista Noe, SARAH 2. Non-Specific Active Suici stephanie Thoughts (Past 1 Month) No 07/27/2022 10:51 AM Gigi Noe RN 6. Suicidal Behavior (Lifetime) No 2 10:51 AM Krista Neo, RN documented as of this encounter Plan of Treatment Not on file documented as of this encounter Visit Diagnoses Not on filedocumented in this encounter Care Teams Journeyman Painter Relationship Specialty Start Date End Date Anna Taylor MD [email or web address] PCP - General Family Medicine 06/05/22 05/25/23 Arlet Singh MD, MPH [address] [place] [address] [email or web address] PCP - General Family Medicine 05/26/23 documented as of this encounter Additional Source Comments The information contained in this document represents components of the legal health record. It is not the complete legal health record.[facility]
--- OUTSIDE RECORDS SUMMARY | 2025-06-16 16:39 | XMS_ITS | Encounter Summary ---
Author Organization [facility] Address 399 [facility] [address] [place] [address] Phone Care Team Providers Care Supervisor Audit Clerks Name Role Phone Cheyenne Oshea MD Unavailable [phone] Baltazar Burnham MD Unavailable Baltazar Burnham MD Primary Care Provider [phone] Anna Taylor MD Primary Care Provider [phone] Arlet Singh MD, MPH Primary Care Provider + Encounter Details Date Type Department Care Team (Late st Contact Info) Description 01/30/2021 Procedure Pass [facility]oscopy Admitting Dept Virtual Department [address] [place] [address] Social History Tobacco Use Types [...] on filedocumented in this encounter Care Teams Supervisor Audit Clerks Relationship Specialty Start Date End Date Baltazar Burnham MD [address] [facility] [address] [place] [address] [email or web address] PCP - General 08/08/17 06/04/22 Anna Taylor MD 230 [facility] [address] [place] [phone] PCP - General Family Medicine 06/05/22 05/25/23 Arlet Singh MD, MPH [address] [place] [address] [email or web address] PCP - General Family Medicine 05/26/23 Cheyenne Oshea MD [address] [place] [address], [facility] [address] [place] [address] [email or web address] Historical LMR Provider 05/23/17 08/12/21 Baltazar Burnham MD 230 [facility] [address] [place] [address] [email or web address] Historical LMR Provider 05/23/17 08/12/21 documented as of this encounter Additional Source Comments The information contained in this document represents components of the legal health record. It is not the complete legal health record.[facility]
--- OUTSIDE RECORDS SUMMARY | 2025-06-16 16:39 | XMS_ITS | Encounter Summary ---
Author Organization [facility] Address 399 [facility] [address] [place] [address] Phone Care Team Providers Care Aerospace Quality Engineer Name Role Phone Anna Taylor MD Primary Care Provider [phone] Arlet Singh MD, MPH Primary Care Provider + Encounter Details Date Type Department Care Team (Late st Contact Info) Description 06/19/2022 Ancillary Orders Non-Invasive Cardiology [address] [place] [address] Katheryn Izquierdo, PA [address] [place] [address] rach Other form of dyspnea Social History [...] AM EST) Max BP Systolic 130 mmHg [facility] Max BP Diastolic 80 mmHg [facility] Max HR 110 BPM [facility] Resting HR 92 BPM [facility] Resting BP Systolic 130 mmHg [facility] Resting BP Diastolic 80 mmHg [facility] Peak METS 1.0 METS [facility] Peak HR 105 BPM [facility] Anatomical Region Laterality Modality [...] followed by injection of Tc99m Sestamibi by [facility] nuclear supervising operator. Test was done as a pharmacologic [...] report for full details. Katie Ling DNP, DAY LIGHT RELIEF OPERATOR-BC with Dr. Huynh . us Katheryn CERRATO CV NM CARDIAC Fi nal Result documented in this encounter Visit Diagnoses Diagnosis Other form of dyspnea Other form of dyspnea documented in this encounter Care Teams Aerospace Quality Engineer Relationship Specialty Start Date End Date Anna Taylor MD PCP - General Family Medicine 06/05/22 05/25/23 Arlet Singh MD, MPH [address] [place] [address] [email or web address] PCP - General Family Medicine 05/26/23 documented as of this encounter Additional Source Comments The information contained in this document represents components of the legal health record. It is not the complete legal health record.[facility]
--- OUTSIDE RECORDS SUMMARY | 2025-06-16 16:39 | XMS_ITS | Encounter Summary ---
Author Organization [facility] Address [address] [facility] [address] [place] [address] Phone Care Team Providers Care Aircraft Hydraulic Equipment Mechanic Name Role Phone Anna Taylor MD Primary Care Provider [phone] Arlet Singh MD, MPH Primary Care Provider + Encounter Details Date Type Department Care Team (Late st Contact Info) Description 08/13/2022 Procedure Pass [facility], [address] [address] Social History Tobacco Use Types Packs/Day Years [...] 4:58 PM EST Carol Strange RN * [place] Suicide Severity Rating Scale (Screener/Recent Self-Report) Question [...] on filedocumented in this encounter Care Teams Aircraft Hydraulic Equipment Mechanic Relationship Specialty Start Date End Date Anna Taylor MD [email or web address] PCP - General Family Medicine 06/05/22 05/25/23 Arlet Singh MD, MPH [address] [place] [address] [email or web address] PCP - General Family Medicine 05/26/23 documented as of this encounter Additional Source Comments The information contained in this document represents components of the legal health record. It is not the complete legal health record.[facility]
--- OUTSIDE RECORDS SUMMARY | 2025-06-16 16:39 | XMS_ITS | Encounter Summary ---
Author Organization [facility] Address [address] [facility] [address] [place] [address] Phone Care Team Providers Care Sr. Payroll Manager Name Role Phone Anna Taylor MD Primary Care Provider [phone] Arlet Singh MD, MPH Primary Care Provider + Encounter Details Date Type Department Care Team (Late st Contact Info) Description 09/03/2022 Procedure Pass [facility] Endoscopy Admitting Dept Virtual Department [address] [place] [address] Social History Tobacco Use Types Packs/Day Years Used Date Smoking Tobacco: Never Smokeless Tobacco: Never Alcohol Use Standard Drinks/Week Comments Yes 5 (1 standard drink = 0.6 oz pure alcohol) Fridays - None since August Intimate Partner Violence Answer Date R ecorded Are you denied basic needs s [facility] as food, clothing, or medical care? No 09/03/2022 In the past 12 months have y ou been in a relationship with a person who hurts, threatens, or tries to control you? No 09/03/2022 Are you denied basic needs s [facility] as food, clothing, or medical care? No [...] on filedocumented in this encounter Care Teams Sr. Payroll Manager Relationship Specialty Start Date End Date Anna Taylor MD [email or web address] PCP - General Family Medicine 06/05/22 05/25/23 Arlet Singh MD, MPH [address] [place] [address] [email or web address] PCP - General Family Medicine 05/26/23 documented as of this encounter Additional Source Comments The information contained in this document represents components of the legal health record. It is not the complete legal health record.[facility]
--- OUTSIDE RECORDS SUMMARY | 2025-06-16 16:39 | XMS_ITS | Encounter Summary ---
Author Organization [facility] Address [address] [facility] [address] [place] [address] Phone Care Team Providers Care Care Associate Name Role Phone Anna Taylor MD Primary Care Provider [phone] Arlet Singh MD, MPH Primary Care Provider + Encounter Details Date Type Department Care Team (Late st Contact Info) Description 08/13/2022 Procedure Pass [facility], Ct Scan - [address] [address] Social History Tobacco Use Types Packs/Day Years [...] 4:58 PM EST Carol Strange RN * [place] Suicide Severity Rating Scale (Screener/Recent Self-Report) Question [...] on filedocumented in this encounter Care Teams Care Associate Relationship Specialty Start Date End Date Anna Taylor MD [email or web address] PCP - General Family Medicine 06/05/22 05/25/23 Arlet Singh MD, MPH [address] [place] [address] [email or web address] PCP - General Family Medicine 05/26/23 documented as of this encounter Additional Source Comments The information contained in this document represents components of the legal health record. It is not the complete legal health record.[facility]
--- OUTSIDE RECORDS SUMMARY | 2025-06-16 16:39 | XMS_ITS | Encounter Summary ---
Author Organization [facility] Address 399 [facility] [address] [place] [address] Phone Care Team Providers Care Senior Investigator Name Role Phone Baltazar Burnham MD Primary Care Provider [phone] Anna Taylor MD Primary Care Provider [phone] Arlet Singh MD, MPH Primary Care Provider + Reason for Referral * MRI/CAT Scan - Closed Specialty Diagnoses / Procedures Referred By Contac t Referred To Contact Radiology Diagnoses Other form of dyspnea Procedures NC Myocardial Perfusion Exercise Multiple CHG MYOCARDIAL SPECT MULTIPLE STUDIES Katheryn Izquierdo PA Phone: tel: fax: mailto:ashly Referral ID Status Reason Start Date Expiration Date Visits Re quested Visits Authorized [id number] Closed 05/31/2022 08/28/2022 4 4 Encounter Details Date Type Department Care Team (Late st Contact Info) Description 06/01/2022 Transcribe Orders Virtual Department [address] [place] [address] aKtheryn Izquierdo PA [address] [place] [address] rach Other form of dyspnea (Primary Dx) [...] infarct. LVEF calculated at approximately 63%. POS [id number] Narrative 06/20/2022 9:39 AM EST COMPARISON: None [...] No evidence of infarct. LVEF calculated at [id number]%. POS [id number] us Katheryn CERRATO CV NM CARDIAC Fi nal Result documented in this encounter Visit Diagnoses Diagnosis Other form of dyspnea- Primary Other form of dyspnea documented in this encounter Care Teams Senior Investigator Relationship Specialty Start Date End Date Baltazar Burnham MD [address] [place] [phone] [email or web address] PCP - General 08/08/17 06/04/22 Anna Taylor MD [address] [place] [address] [email or web address] PCP - General Family Medicine 06/05/22 05/25/23 Arlet Singh MD, MPH [address] [place] [address] PCP - General Family Medicine 05/26/23 documented as of this encounter Additional Source Comments The information contained in this document represents components of the legal health record. It is not the complete legal health record.[facility]
--- OUTSIDE RECORDS SUMMARY | 2025-06-16 16:39 | XMS_ITS | Encounter Summary ---
Author Organization [facility] Address 399 [facility] [address] [place] [address] Phone Care Team Providers Care Contour Path Tape Mill Operator Name Role Phone Cheyenne Oshea MD Unavailable [phone] Baltazar Burnham MD Unavailable Baltazar Burnham MD Primary Care Provider [phone] Anna Taylor MD Primary Care Provider [phone] Arlet Singh MD, MPH Primary Care Provider + Encounter Details Date Type Department Care Team (Late st Contact Info) Description 01/30/2021 Procedure Pass [facility], Ct Scan - [address] [address] Social History Tobacco Use Types [...] on filedocumented in this encounter Care Teams Contour Path Tape Mill Operator Relationship Specialty Start Date End Date Baltazar Burnham MD [address] [facility] [address] [place] [address] [email or web address] PCP - General 08/08/17 06/04/22 Anna Taylor MD [address] [facility] [address] [place] [phone] [email or web address] PCP - General Family Medicine 06/05/22 05/25/23 Arlet Singh MD, MPH [address] [place] [address] [email or web address] PCP - General Family Medicine 05/26/23 Cheyenne Oshea MD [address] [place] [address], [facility] [address] [place] [address] [email or web address] Historical LMR Provider 05/23/17 08/12/21 Baltazar Burnham MD 230 [facility] [address] [place] [address] [email or web address] Historical LMR Provider 05/23/17 08/12/21 documented as of this encounter Additional Source Comments The information contained in this document represents components of the legal health record. It is not the complete legal health record.[facility]
--- OUTSIDE RECORDS SUMMARY | 2025-06-16 16:39 | XMS_ITS | Encounter Summary ---
Author Organization [facility] Address [address] [place] [address] [place] [address] Phone Care Team Providers Care Vehicle Upholsterer Name Role Phone Anna Taylor MD Primary Care Provider [phone] Arlet Singh MD, MPH Primary Care Provider + Encounter Details Date Type Department Care Team (Late st Contact Info) Description 08/14/2022 Procedure Pass [facility] Endoscopy Admitting Dept Virtual Department [address] [place] [address] Social History Tobacco Use Types Packs/Day Years [...] on filedocumented in this encounter Care Teams Vehicle Upholsterer Relationship Specialty Start Date End Date Anna Taylor MD [email or web address] PCP - General Family Medicine 06/05/22 05/25/23 Arlet Singh MD, MPH [address] [place], [place] [phone] [email or web address] PCP - General Family Medicine 05/26/23 documented as of this encounter Additional Source Comments The information contained in this document represents components of the legal health record. It is not the complete legal health record.[facility]
--- OUTSIDE RECORDS SUMMARY | 2025-06-16 16:39 | XMS_ITS | Encounter Summary ---
Author Organization [facility] Address 399 [facility] [address] [place] [address] Phone Care Team Providers Care Client Delivery Specialist Name Role Phone Anna Taylor MD Primary Care Provider [phone] Arlet Singh MD, MPH Primary Care Provider + Encounter Details Date Type Department Care Team (Late st Contact Info) Description 07/27/2022 Procedure Pass [facility], Ct Scan - [address] [address] Social History Tobacco Use Types Packs/Day Years [...] 07/27/2022 10:51 AM Krista Noe RN * [place] Suicide Severity Rating Scale (Screener/Recent Self-Report) Question [...] on filedocumented in this encounter Care Teams Client Delivery Specialist Relationship Specialty Start Date End Date Anna Taylor MD [email or web address] PCP - General Family Medicine 06/05/22 05/25/23 Arlet Singh MD, MPH [address] [place] [address] [email or web address] PCP - General Family Medicine 05/26/23 documented as of this encounter Additional Source Comments The information contained in this document represents components of the legal health record. It is not the complete legal health record.[facility]
--- OUTSIDE RECORDS SUMMARY | 2025-06-16 16:39 | XMS_ITS | Encounter Summary ---
Author Organization [facility] Address 399 [facility] [address] [place] [address] Phone Care Team Providers Care Sock Liner Name Role Phone Anna Taylor MD Primary Care Provider [phone] Arlet Singh MD, MPH Primary Care Provider + Encounter Details Date Type Department Care Team (Late st Contact Info) Description 08/13/2022 Procedure Pass [facility], Ct Scan - [address] [address] Social History Tobacco Use Types Packs/Day Years [...] 4:58 PM EST Carol Strange RN * [place] Suicide Severity Rating Scale (Screener/Recent Self-Report) Question [...] on filedocumented in this encounter Care Teams Sock Liner Relationship Specialty Start Date End Date Anna Taylor MD [email or web address] PCP - General Family Medicine 06/05/22 05/25/23 Arlet Singh MD, MPH [address] [place] [address] [email or web address] PCP - General Family Medicine 05/26/23 documented as of this encounter Additional Source Comments The information contained in this document represents components of the legal health record. It is not the complete legal health record.[facility]
--- OUTSIDE RECORDS SUMMARY | 2025-06-16 16:39 | XMS_ITS | Clinical Summary ---
Author Organization [facility] Address 399 [facility] [address] [place] [address] Phone Care Team Providers Care Construction Site Manager Name Role Phone Arlet Singh MD, MPH [...] 09/03/2022 Are you denied basic needs s [facility] as food, clothing, or medical care? [...] patient's age to complete this topic IPV VACCINES Aged Out No longer eligi ble [...] 08/14/2022 5:26 AM EST BASIC METABOLIC PANEL (BMP) Routine 08/14/2022 5:26 AM EST ENDOSCOPY, COLON 01/30/2021 7:49 AM EDT from Last 3 Months or Most Recently Relevant to Health Maintenance Results * Pap Test (05/06/2023 12:00 AM EDT) 05/06/2023 05/07/2023 8:4 0 AM EDT Narrative SEE NARRATIVE - 05/08/2023 2:55 PM EDT [address] [address] Hand Coremaker: Ira Matt MD BALANCE TRUING INSPECTOR Cytology Report FINAL DIAGNOSIS A. PAP SMEAR [...] 59, 66, 68) Note: Testing performed by [facility] HR-HPV analysis. Clinical correlation is advised. This HPV test was performed at [facility], [address] [place] [address]. This test has been FDA approved for [facility] cervical cytology specimens. The accuracy and precision of this test for all other specimen sources has been verified in the Cytopathology Laboratory of the [facility] and has not been cleared or approved by the U.S. Food and Drug Administration. Clinical correlation is advised. CLINICAL HISTORY Date of Last Menstrual Period: Not Provided Menstrual History: Unknown Other Clinical Conditions: Screening Pap SPECIMEN SOURCE A: PAP SMEAR (SUREPATH) CE Patient Name: YARELY CONDE : 1965 (Age: 57) Sex: F Institution: [facility] Location: [facility] Date of Collection: 05/06/2023 Date of Reported: 05/08/2023 14:55 Results to: Katheryn Izquierdo us Katheryn Izquierdo PA CYTOLOGY ORDERABLE S Final Result SEE NARRATIVE * (ABNORMAL) Hemoglobin A1c (08/14/2022 5:26 AM EST) HEMOGLOBIN A1C 7.7(H) 4.3 - 5.8 % [facility] Blood 08/14/2022 5:26 AM EST 08/14/2022 7:22 AM EST William Montoya MD LAB BLOOD BKR ORDERABLES F inal Result Performing Organization Address [facility]/ZIP Co de Phone Number [address] [address] * (ABNORMAL) Basic metabolic panel (08/14/2022 5:26 AM EST) SODIUM 140 133 - 146 mmol/L [facility] CHLORIDE 104 96 - 108 mmol/L [facility] POTASSIUM 3.7 3.3 - 5.1 mmol/L [facility] CO2 27 21 - 35 mmol/L [facility] BUN 15 6 - 19 mg/dL [facility] CREATININE 0.80 0.5 - 1.5 mg/dL [facility] GLUCOSE 113(H) 70 - 99 mg/dL [facility] CALCIUM 8.9 8.4 - 10.3 mg/dL [facility] EGFR 86 >59 mL/min/1.7 3m2 [facility] Comment:Estimated glomerular filtration rate calculated using the CKD-EPI refit equation. ANION GAP 13 10 - 20 mmol/L [facility] Blood 08/14/2022 5:26 AM EST 08/14/2022 6:17 AM EST us William Montoya MD LAB BLOOD BKR ORDERABLES F inal Result Performing Organization Address [facility] Co de Phone Number [address] [address] * ENDOSCOPY, COLON (01/30/2021 7:49 AM EDT) Narrative Transcriptions Jason Hair MD - 01/30/2021 7:49 AM EDT Patient Name: Yarely Conde Attending MD:: JASON HAIR MD Procedure Date: 01/30/2021 7:49 AM Date of : 1965 Age: 55 Admit Type: Outpatient Gender: Female Room: [place] [address] Referring MD: Baltazar Burnham MD Exam Type: [...] 7:49 AM Procedure Code(s): --- Professional --- 47284, Colonoscopy, flexible; diagnostic, including collection of specimen(s) by brushing or washing, when performed (separateprocedure) --- Technical --- 34660, Colonoscopy, flexible; diagnostic, including collection of specimen(s) by brushing or washing, when performed (separateprocedure) Diagnosis Code(s): --- Professional --- R10.84, Generalized abdominal pain R63.4, Abnormal weight loss Q43.8, Other specified congenital malformations of intestine --- Technical --- R10.84, Generalized abdominal pain R63.4, Abnormal weight loss Q43.8, Other specified congenital malformations of intestine CPT copyright 2018 [employer]. All rights reserved. The codes documented in this report are preliminary and upon technical trainer reviewmay be revised to meet current compliance requirements. Procedure Date: 01/30/2021 7:49:43 AM [address] [place] [address] Baltazar Burnham MD GI PROCEDURE ORDERABLES Final Re sult from Last 3 Months or Most Recently Relevant to Health Maintenance Insurance [facility] [employer] PLANS DIRECT [facility] [employer] PLANS DIRECT [facility] [employer] DIRECT [facility] [employer] DIRECT [facility] [employer] PLANS DIRECT [facility] PLANS [place] [address] [place] [address] [place] [address] PLANS DIRECT [facility] [employer] PLANS DIRECT Advance Directives For more information, please contact: [phone] (9AM - 5PM [facility], Saturday-Saturday) * Full Code (Latest Code Status on File) Date Activated Date Inactivated Comments 08/13/2022 8:13 PM Question Answer Comments Code Status Confirmed With: Patient Care Teams Construction Site Manager Relationship Specialty Start Date End Date Arlet Singh MD, MPH [address] [place] [address] PCP - General Family Medicine 05/26/23 Additional Source Comments The information contained in this document represents components of the legal health record. It is not the complete legal health record.[facility]
== END 2025-06-16 16:11 | disposition home or self-care (01) ==
PROVIDERS: Physician Assistant Medical; Emergency Provider Emergency Medicine; PCP Internal Medicine
DX: I48.91 Unspecified atrial fibrillation (principal); E11.9 Type 2 diabetes mellitus without complications; I10 Essential (primary) hypertension; Z79.899 Other long term (current) drug therapy; Z98.84 Bariatric surgery status
CPT/HCPCS: 36415; 71045; 80053; 83735; 84443; 84484; 85025; 93005; 96361; 96374; 99284; 99285; J0616

== ENCOUNTER → 2025-06-16 12:55 | Outpatient (BNV) | payer OTHER, SELFPAY | PROVIDERS: Emergency Provider Emergency Medicine; PCP Internal Medicine; Visit Provider Internal Medicine Cardiovascular Disease | DX: I48.91 Unspecified atrial fibrillation (principal) | CPT/HCPCS: 93010 ==

== ENCOUNTER → 2025-06-16 14:07 | Outpatient (BNV) | payer OTHER, SELFPAY | PROVIDERS: Emergency Provider Emergency Medicine; PCP Internal Medicine; Visit Provider Radiology Diagnostic Radiology | DX: I48.91 Unspecified atrial fibrillation (principal) | CPT/HCPCS: 71045 ==

== ENCOUNTER 2025-07-08 08:04 | Outpatient (AMB) | payer OTHER, SELFPAY ==
--- OUTSIDE RECORDS SUMMARY | 2013-05-25 23:00 | XMS_ITS | Encounter Summary ---
Author Organization [facility] Address [address] [facility] [address] [place] [address] Phone Care Team Providers Care Tube Puller Name Role Phone Unavailable Primary Care Provider Unavailabl e Encounter Details Date Type Department Care Team (Late st Contact Info) Description 05/26/2013 Hospital Encounter [facility],Outside Imaging [address] [place], [place] [phone] Unknown, Unknown, Social History Tobacco Use Types Packs/Day Years Used Date Smoking Tobacco: Never Smokeless Tobacco: Never Alcohol Use Standard Drinks/Week Comments Yes 5 (1 standard drink = 0.6 oz pure alcohol) Fridays - None since August Education Answer Date Recorded Are you interested in more education? Not on francisco e 11/30/2022 Are you concerned about learning? Not on file 11/30/2022 No 11/30/2022 No 11/30/2022 Digital Access Answer Date Recorded No 12/31/2022 No 12/31/2022 Reliable internet access at home? Not on file 12/31/2022 Device with a working camera? Not on file Intimate Partner Violence Answer Date R ecorded Are you denied basic needs s uch as food, clothing, or medical care? No 09/03/2022 In the past 12 months have y ou been in a relationship with a person who hurts, threatens, or tries to control you? No 09/03/2022 Are you denied basic needs s uch as food, clothing, or medical care? No 09/03/2022 In the past 12 months have y ou been in a relationship with a person who hurts, threatens, or tries to control you? No 09/03/2022 Comments No Sex and Gender Information Value Date Recorded Sex Assigned at Female 07/27/2022 10:51 AM EST Legal Sex Female 9:39 PM EDT Gender Identity Female 07/27/2022 10:51 AM EST Sexual Orientation Straight 08/13/2022 5: 01 PM EST documented as of this encounter Functional Status * Calculated C-SSRS Risk Score (Lifetime/Recent) Answer Date of Assessment Author No Risk Indicated 08/13/2022 4:58 PM Carol Orozco RN * [place] Suicide Severity Rating Scale (Screener/Recent Self-Report) Question Answer Date of Assessment Author 1. Wish to be (Past 1 Month) No 08/13/2022 4:58 PM Carmen Sweeney RN 2. Non-Specific Active Suicidal Thoughts (Past 1 Month) No 08/13/2022 4:58 PM Carmen Sweeney RN 6. Suicidal Behavior (Lifetime) No 08/13/2022 4:58 PM Carmen Sweeney RN documented as of this encounter Plan of Treatment Not on file documented as of this encounter Procedures Procedure Name Priority Date/Time Associated Diagnosis Comments XR SPINE OUTSIDE (NO INTERPRETATION) Routine 05/26/2013 12:00 AM EDT documented in this encounter Results * XR SPINE OUTSIDE(NO INTERPRETATION) (05/26/2013 12:00 AM EDT) Narrative SYSTEMGENERATED, DOCUMENTATION - 06/04/2023 1:35 PM EDT This study is for PACS storage only and not for interpretation. us Unknown Unknown MD PRICE OUTSIDE IMAGING W/OUT INT ERPRETATION Final Result documented in this encounter Visit Diagnoses Not on filedocumented in this encounter Additional Source Comments The information contained in this document represents components of the legal health record. It is not the complete legal health record.[facility]
--- OUTSIDE RECORDS SUMMARY | 2013-05-27 23:00 | XMS_ITS | Encounter Summary ---
Author Organization [facility] Address [address] [facility] [address] [place] [address] Phone Care Team Providers Care White Kid Buffer Name Role Phone Unavailable Primary Care Provider Unavailabl e Encounter Details Date Type Department Care Team (Late st Contact Info) Description 05/28/2013 Hospital Encounter [facility],Outside Imaging [address] [place], [place] [phone] Unknown, Unknown, Social History Tobacco Use Types [...] 08/13/2022 4:58 PM Carol Orozco RN * [place] Suicide Severity Rating Scale (Screener/Recent Self-Report) Question [...] It is not the complete legal health record.[facility]
--- NOTE | 2025-07-08 08:05 | MHC.PC.OV ---
Vital Signs 07/08/25 08:15 Height 5 ft 4.76 in Weight 177 lb BMI 29.7 BP 94/62 Blood Pressure Location Lt brachial Position Sitting Respiration 18 Pulse 102 H Pulse Source Pulse Oximeter Temp 98.7 F Temp Source Temporal Artery Scan Pulse Oximetry (%) 96 Oxygen Delivery Method Room Air Intake Visit Reasons: New Patient [place] Required: No Accompanied by: Self / Same As Patient Allergies No Known Allergies Allergy (Verified 07/08/25 08:05) Medication List - Last Reconciled 07/08/25 by Minh Mancilla MD acetaminophen 1,000 mg (2 x 500 mg) PO .q8 PRN apixaban (Eliquis) 5 mg PO BID 45 days atorvastatin 1 tab PO DAILY blood-glucose sensor (FreeStyle Sean 3 Plus Sensor device) As directed bupropion HCl XL 300 mg PO DAILY cholecalciferol (vitamin D3) (Vitamin D3) 125 mcg PO DAILY dulaglutide (Trulicity) 0.75 mg subcut QWEEK ferrous sulfate 1 tab PO BID flash glucose scanning reader (FreeStyle Sean 2 [place]) flash glucose sensor (FreeStyle Sean 2 Sensor kit) As directed gabapentin 1 tab PO TID hydrochlorothiazide 12.5 mg PO DAILY hyoscyamine sulfate 0.125 mg PO Q4H PRN ibuprofen 600 mg PO Q8H PRN insulin glargine (Lantus Solostar U-100 Insulin) 35 units subcut DAILY insulin lispro (Humalog KwikPen (U-100) Insulin) 5 - 10 units subcut TID lisinopril 40 mg PO DAILY loratadine 10 mg PO DAILY lorazepam 0.5 mg PO TID PRN metformin 1 tab PO BID metoprolol succinate ER 25 mg PO DAILY omeprazole 20 mg PO BID trazodone 2 tabs PO BEDTIME PRN venlafaxine ER 150 mg PO BID Tobacco use date assessed: 07/08/25 Dental Screening Dental Screen Date: 07/08/25 Did you have a dental visit in the last 12 months?: No Did you have a dental problem in the last 6 months where you did not have access to dental care?: Yes Was dental information given to patient?: Patient has dentist HPI HPI Comments History of Present Illness Details History of Present Illness The patient is a 59-year-old female presenting to [facility] care with a new provider for management of multiple chronic conditions. Her last primary care visit was in January, and she switched providers due to her previous clinic canceling appointments and changing her provider multiple times. She recently presented to the emergency room with chest fluttering and was diagnosed with atrial fibrillation. She was started on Eliquis 5 mg and metoprolol 25 mg. She reports her heart rate is usually in the high 90s to low 100s and never below 90 bpm, and she still experiences heart racing once or twice last week. She has a history of a heart murmur following a surgical repair of an atrial septal defect approximately 35 years ago. The patient has a history of type 2 diabetes, which has been managed by her previous primary care provider. Her regimen includes long-acting insulin 35 units in the morning, lispro 5-10 units three times a day with meals, metformin 1000 mg twice a day, and Trulicity 0.75 mg weekly. She has been on the current dose of Trulicity for three years, which she reports worked [employer], as her A1c was previously over 10. Her last A1c via her GMI reading was 7.4%. She experiences stomach cramping when her blood sugar is high, identified as diabetic gastroparesis, for which she takes hyoscyamine sulfate. She also has neuropathy in her big toes, one from diabetes and the other from permanent nerve damage from a past herniated disc, managed with gabapentin 600 mg three times a day. For hypertension, she takes hydrochlorothiazide and lisinopril 40 mg. For depression, she is on venlafaxine 150 mg twice daily, bupropion 300 mg once daily, and trazodone 100 mg at night. She also takes lorazepam for anxiety. Her PHQ score is 5 and JACKIE score is positive. Additional chronic conditions include iron deficiency anemia, for which she sees a highway painter and takes oral iron, with a history of prior infusions. She has stage 3B chronic kidney disease with a GFR of 36. She was diagnosed with Duong's esophagus 4 years ago and has a gastroenterology appointment scheduled in August. She has experienced chest pain diagnosed as costochondritis. She reports constipation, which she attributes to her iron supplement and manages with Miralax or fiber. Her last colonoscopy was 2-3 years ago, with a recommendation for screening every 5 years due to her father's history of polyps. Her last mammogram was within the past year. Medical History: - Atrial Fibrillation, diagnosed recently in the ER - Tachycardia, with a resting heart rate typically in the high 90s to low 100s - Type 2 Diabetes Mellitus with complications of gastroparesis and neuropathy - Hypertension - Depression - Anxiety - Hyperlipidemia, on atorvastatin as per diabetic protocol - Iron Deficiency Anemia, under the care of a highway painter - Chronic Kidney Disease, Stage 3B (GFR 36) - Duong's Esophagus, diagnosed 4 years ago - History of a herniated disc causing permanent sciatic nerve damage - History of an Atrial Septal Defect, surgically repaired - Costochondritis Surgical History: - Gastric bypass (10 years ago) - Cholecystectomy - Two sections - Two bunion repairs - Heart surgery for atrial septal defect repair (approximately 35 years ago) - Two back surgeries, including one for a herniated disc Medications: - Eliquis 5 mg for atrial fibrillation - Metoprolol 25 mg for atrial fibrillation - Long-acting insulin 35 units in the morning for diabetes - Lispro 5-10 units three times a day with meals for diabetes - Hydrochlorothiazide for hypertension - Lisinopril 40 mg for hypertension - Metformin 1000 mg twice a day for diabetes - Venlafaxine 150 mg twice a day for depression - Trazodone 100 mg at night for sleep - Bupropion 300 mg once a day for depression - Atorvastatin 10 mg as per diabetic protocol - Trulicity 0.75 mg weekly for diabetes - Hyoscyamine sulfate for diabetic gastroparesis - Ferrous sulfate for iron deficiency anemia - Gabapentin 600 mg three times a day for neuropathy - Lorazepam for anxiety - Omeprazole 20 mg Family History: - Father had a history of heart disease, including a heart attack at age 59, and polyps; he from cancer at age 70. - Mother's side of the family has a history of diabetes. Diagnostic Results: - Patient-reported Glucose Management Indicator (GMI) from her meter is 7.4%. - GFR is 36, consistent with Stage 3B chronic kidney disease. - PHQ score is 5. - JACKIE score is positive for anxiety. 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 - Alcohol Use: She quit drinking about a month and a half ago. - Prior to quitting, she would drink 2-3 bottles of wine (approximately 5-6 drinks) on Fridays. - Tobacco Use: Denies smoking, with the exception of when she was 17. - Illicit Drug Use: Denies use of marijuana, heroin, and cocaine. [facility] Medical History (Updated 07/08/25 @ 09:03 by Minh Mancilla MD) Annual physical exam Iron deficiency Barretts esophagus Hypertension, essential, benign CKD stage 3b, GFR 30-44 ml/min Anxiety and depression Atrial fibrillation Fusion of lumbar spine Back pain with history of spinal surgery Atrial septal defect Bunion of unspecified foot delivery delivered Iron deficiency anemia High blood pressure Diabetes Surgical History Gastric bypass status for obesity H/O heart surgery Social History Household Members: Family Housing: House Alcohol intake: never Patient Tobacco Use Status: Never used Tobacco e-Cigarette/Vaping Use: Never Used service: No Current occupational status: unemployed Questionnaire PHQ-9 Over the last 2 weeks, how often have you been bothered by any of the following problems? 1. Little interest or pleasure in doing things: several days 2. Feeling down, depressed, or hopeless: several days 3. Trouble falling or staying asleep, or sleeping too much: several days 4. Feeling tired or having little energy: several days 5. Poor appetite or overeating: not at all 6. Feeling bad about yourself - or that you are a failure or have let yourself or your family down: not at all 7. Trouble concentrating on things, such as reading the newspaper or watching television: several days 8. Moving or speaking so slowly that other people could have noticed. Or the opposite - being so fidgety or restless that you have been moving around a lot more than usual: not at all 9. Thoughts that you would be better off or of hurting yourself in some way: not at all Total score: 5 Depression Screening Interpretation: Positive Depression Screening Done: Yes 45260 - PHQ-9 Billing: Yes Source: Developed by Drs. Tito Dee, Oumou Arndt, Demond Hwang and colleagues, with an educational stephen from [employer]. Thrive Questionnaire Date Thrive assessed: 07/08/25 I am a: Patient What is your living situation today?: I have a steady place to live Within the past 12 months, did the food you bought not last and you didn't have the money to get more?: Never true Within the past 12 months, did you worry whether your food would run out before you got money to buy more?: Never true Do you have trouble paying for medicines?: No Do you have trouble getting transportation to medical appointments?: No Do you have trouble paying your heating and electricity bill?: No Do you have trouble taking care of your child, family member or friend?: No Do you have trouble with day-to-day activities such as bathing, preparing meals, shopping, managing finances, etc.?: No Are you currently unemployed and looking for a job?: Yes Are you interested in more education?: No THRIVE Score: 0 AUDIT C Alcohol Use Questionnaire (AUDIT-C) 1. How often do you have a drink containing alcohol?: 2-3 times a week 2. How many drinks containing alcohol do you have on a typical day when you are drinking?: 5 or 6 3. How often do you have six or more drinks on one occasion?: Monthly Total Score: 7 Score Reviewed/Action Taken: Yes (Quit drinking) JACKIE-7 AMB Questionnaire JACKIE-7 Date JACKIE - 7 assessed: 07/08/25 Feeling nervous, anxious, or on edge: 1 = Several days Not being able to stop or control worryin = Several days Worrying too much about different things: 1 = Several days Trouble relaxin = Several days Being so restless that it is hard to sit still: 0 = Not at all Becoming easily annoyed or irritable: 0 = Not at all Feeling afraid as if something awful might happen: 1 = Several days Total JACKIE-7 score (0-4 normal; 5-9 mild; 10-14 moderate; 15-21 severe): 5 Source: Developed by Drs. Tito Dee, Oumou Arndt, Demond Hwang and colleagues, with an educational stephen from [employer]. JACKIE-7 Assessment Billing JACKIE-7 Assessment Tool: JACKIE-7 Assessment 28766 Review of Systems Narrative Review of Systems - Cardiovascular: Reports chest fluttering, occasional heart racing, and chest pain which she attributes to costochondritis. - Respiratory: Reports shortness of breath. - Gastrointestinal: Reports frequent constipation, managed with Miralax or fiber; also reports stomach cramping when her blood sugar is elevated. - Neurological: Reports neuropathy in her big toes. - Psychiatric: Reports feeling anxious. - All other systems reviewed and are negative. All systems reviewed & are unremarkable except as reviewed in HPI and above Physical exam (Primary Care) Vital Signs: Last Vital Signs Temp 98.7 F 07/08/25 08:15 Pulse 102 H 07/08/25 08:15 Resp 18 07/08/25 08:15 BP 94/62 07/08/25 08:15 Pulse Ox 96 07/08/25 08:15 Oxygen Delivery Method Room Air 07/08/25 08:15 BMI result Body Mass Index 29.7 Tobacco/Smoking Status: Tobacco use Status Tobacco use date assessed 07/08/25 07/08/25 08:07 Patient Tobacco Use Status Never used Tobacco 07/08/25 08:07 e-Cigarette/Vaping Use Never Used 07/08/25 08:17 PHQ-9: PHQ-9 Score PHQ-9: Total score 5 07/08/25 09:01 Depression Screening Interpretation: Positive Thrive Assessment: Date of Thrive Assessment Date Thrive assessed 07/08/25 07/08/25 08:28 Narrative Physical Exam General: +Alert and oriented, Well nourished, No acute distress. Eye: Pupils are equal, round and reactive to light, Intact accommodation, Extraocular movements are intact, Normal conjunctiva, Vision unchanged. HENT: Normocephalic, Atraumatic, Tympanic membranes are clear, Normal hearing, Oral mucosa is moist, No pharyngeal erythema, Ear canals patent. Respiratory: Lungs CTA bilaterally, No wheeze, Respirations are non-labored. Cardiovascular: Irregular rate, Irregular rhythm, S1 auscultated, S2 auscultated, No murmur, Good pulses equal in all extremities, Normal peripheral perfusion, No edema. Gastrointestinal: Soft, Non-tender, Non-distended, Normal bowel sounds, No organomegaly. Musculoskeletal: Normal range of motion, Normal strength, No tenderness, No swelling, No deformity, Normal gait. Integumentary: Warm, Dry, [place], Intact. Neurologic: Alert, Oriented, Normal sensory, Normal motor function, No focal defects, Cranial Nerves II-XII are grossly intact, Normal deep tendon reflexes. Psychiatric: Cooperative, Appropriate mood & affect, Normal judgment. This encounter meets criteria for a Level 5 new patient visit (69257) due to the high complexity of medical decision-making. The patient presented with multiple chronic conditions undergoing acute evaluation and active management, including newly diagnosed atrial fibrillation with tachycardia requiring medication change and cardiology referral; uncontrolled type 2 diabetes with complications (gastroparesis and neuropathy) requiring comprehensive medication review and pending [id number]-[id number] treatment escalation; stage 3B chronic kidney disease requiring nephrology referral; and inadequately controlled depression/anxiety requiring psychiatric referral and discontinuation of benzodiazepines. Extensive data review and ordering were performed, including a full laboratory panel, echocardiogram, and multiple specialty referrals. The patient?s risk is high, given the need for ongoing anticoagulation (Eliquis), adjustment of rate-controlling therapy, and the presence of multiple conditions with potential for serious morbidity. This level of complexity supports billing [id number]. 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 insulin use: with [facility] use Diabetes mellitus complication status: with neurologic complications Diabetes mellitus complication detail: with polyneuropathy Paroxysmal atrial fibrillation I48.0 Atrial fibrillation type: paroxysmal Anxiety and depression F41.9; F32.A CKD stage 3b, GFR 30-44 ml/min N18.32 Hypertension, essential, benign I10 Duong's esophagus without dysplasia K22.70 Duong's esophagus type: without dysplasia Iron deficiency E61.1 Annual physical exam Z00.00 Additional Codes JACKIE-7 Assessment Billing - JACKIE-7 Assessment Tool: JACKIE-7 Assessment 87239 ([id number]) PHQ-9 - 70431 - PHQ-9 Billing: Yes ([id number]) Comment [id number] Assessment & Plan Assessment & Plan (1) Diabetes: Comment: - Her diabetes is uncontrolled, with a recent GMI of 7.4%. - She has been on a stable dose of Trulicity 0.75 mg for three years despite a prior A1c over 10%. - Complications include diabetic gastroparesis and neuropathy. - The plan includes ordering a formal A1c today. - If it remains elevated, an increase in her Trulicity dose will be considered. - She will continue her current insulin, metformin, and gabapentin regimen. 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 - The plan is to increase her beta-charito by switching to metoprolol tartrate 37.5 mg twice daily. - She is advised to continue Eliquis without interruption to prevent stroke. - An echocardiogram will be ordered to evaluate for structural or valvular causes of her arrhythmia, and a referral will be placed to Cardiology for specialist management. Code(s): I48.91 - Unspecified atrial fibrillation Category: Medical Qualifiers: Atrial fibrillation type: paroxysmal Qualified Code(s): I48.0 - Paroxysmal atrial fibrillation (3) Anxiety and depression: Comment: - Despite being on three antidepressant medications (venlafaxine, bupropion, trazodone), her symptoms are not well-controlled, indicated by a PHQ score of 5 and a positive JACKIE screen. - The current medication regimen is complex for primary care management. - The plan is to refer her to Psychiatry for medication management. - Lorazepam will be discontinued. Code(s): F41.9 - Anxiety disorder, unspecified; F32.A - Depression, unspecified Category: Medical (4) CKD stage 3b, GFR 30-44 ml/min: Comment: - Found to have a GFR of 36, indicating Stage 3B CKD, likely secondary to long-standing diabetes and hypertension. - A referral to Nephrology will be placed for evaluation and management. - The importance of tight blood pressure and glucose control to preserve kidney function was emphasized. Code(s): N18.32 - Chronic kidney disease, stage 3b Category: Medical (5) Hypertension, essential, benign: Comment: - Currently managed with lisinopril and hydrochlorothiazide. - With the planned increase in metoprolol, she is instructed to monitor her blood pressure at home for potential hypotension. - If her blood pressure drops significantly, a reduction in her lisinopril dose will be considered. Code(s): I10 - Essential (primary) hypertension Category: Medical (6) Barretts esophagus: Comment: - The patient has a known history and is appropriately taking omeprazole. - She has an upcoming appointment with a poultry farmworker in August, which she should keep. Code(s): K22.70 - Duong's esophagus without dysplasia Category: Medical Qualifiers: Duong's esophagus type: without dysplasia Qualified Code(s): K22.70 - Duong's esophagus without dysplasia (7) Iron deficiency: Comment: - She is followed by a highway painter and takes oral iron. - She will continue with her current management. Code(s): E61.1 - Iron deficiency Category: Medical (8) Annual physical exam: Comment: - A comprehensive panel of bloodwork, including A1c, lipids, CMP, hepatitis panel, HIV, thyroid, and vitamin D levels, will be drawn today. - Records from her last mammogram (within the year) and colonoscopy (2-3 years ago) will be requested. - A stool-based FIT test kit will be provided as a bridge until her next colonoscopy. Code(s): Z00.00 - Encounter for general adult medical examination without abnormal findings Category: Medical Plan: Health Maintenance: - Colon Cancer Screening: Her last colonoscopy was 2-3 years ago. Records will be requested. Due to a family history of polyps, a 5-year interval is recommended. A stool-based test kit will be provided as an interim screening measure. - Breast Cancer Screening: Her last mammogram was within the past year. Records will be requested. - Lung Cancer Screening: She does not qualify. - Substance Use: She has quit alcohol for a month and a half. - Labs Ordered: A comprehensive lab panel including A1c, lipid panel, hepatitis panel, HIV, syphilis, thyroid function, and vitamin D level was ordered. Patient was informed and verbally consented to the use of an ambient scribe for clinic note documentation during this visit. Vital signs reviewed. Comprehensive history, review of systems, and physical exam completed. Medications, allergies, and problem list reviewed and updated. Counseling provided on nutrition, regular exercise, sleep hygiene, and moderation of alcohol use. Discussed age-appropriate screenings (mammogram, colonoscopy, Pap, bone density) and immunizations (flu, COVID, shingles, Tdap). Screened for depression, fall risk, and home safety; no current concerns. Discussed stress management, dental and vision care, and importance of ongoing preventive follow-up. Routine labs ordered for metabolic and lipid screening. Patient educated on healthy lifestyle and agrees with the plan. Plan I discussed with the patient that this is our first visit and would be comprehensive due to her multiple complex chronic conditions. I explained that her care would be shifted from a primary care-centric model to one involving multiple specialists, including referrals to Cardiology, Nephrology, and Psychiatry, to ensure her conditions are managed by experts in those [place]. I reviewed her new diagnosis of atrial fibrillation, explaining that it is a manageable, not incurable, condition. I emphasized that her heart rate is not controlled, as evidenced by her tachycardia in the office and at home, and I explained the rationale for increasing her beta-charito by switching to metoprolol tartrate twice daily to achieve better rate control and prevent long-term heart damage like cardiomyopathy. I stressed the critical importance of not stopping her Eliquis, as this would put her at high risk for a stroke. I informed her of the diagnosis of stage 3B chronic kidney disease based on her GFR of 36 and explained it was likely related to her diabetes and hypertension. We discussed that her depression is not well-controlled, which necessitates a psychiatry referral for medication management, and I informed her that we would not be prescribing lorazepam. I outlined the plan for comprehensive lab work today and a follow-up visit in two months, with a call to discuss any abnormal results sooner. Orders: Orders CA echo transthoracic complete Today I48.91 - Unspecified atrial fibrillation Hepatitis A,B,C Profile Today Z00.00 - Encounter for general adult medical examination without abnormal findings Microalbumin, Random (w Creat) Today Z00.00 - Encounter for general adult medical examination without abnormal findings Syphilis Screen Today Z00.00 - Encounter for general adult medical examination without abnormal findings TSH reflex Free T4 Today Z00.00 - Encounter for general adult medical examination without abnormal findings Electrolytes Urine Today N18.32 - Chronic kidney disease, stage 3b Parathyroid Hormone Intact Today N18.32 - Chronic kidney disease, stage 3b Vitamin B12 and Folate Today N18.32 - Chronic kidney disease, stage 3b Phosphorus Today N18.32 - Chronic kidney disease, stage 3b Hemoglobin A1c Today Z00.00 - Encounter for general adult medical examination without abnormal findings HIV Ab/Ag Today Z00.00 - Encounter for general adult medical examination without abnormal findings Lipid Panel Today Z00.00 - Encounter for general adult medical examination without abnormal findings Vitamin D 25-OH Total Today Z00.00 - Encounter for general adult medical examination without abnormal findings IRON PROFILE Today N18.32 - Chronic kidney disease, stage 3b UA and rflx microscopic Today N18.32 - Chronic kidney disease, stage 3b Magnesium Today N18.32 - Chronic kidney disease, stage 3b Referrals Nephrology Referral N18.32 - Chronic kidney disease, stage 3b Cardiology Referral I48.91 - Unspecified atrial fibrillation Psychiatry Referral F32.A - Depression, unspecified, F41.9 - Anxiety disorder, unspecified Cologuard Test Z12.11 - Encounter for screening for malignant neoplasm of colon Medications: New metoprolol tartrate 37.5 mg PO BID 60 tabs 0RF 30 days Changed From apixaban (Eliquis) 5 mg PO BID 45 days 90 tabs 0RF To apixaban (Eliquis) 5 mg PO BID 180 tabs 0RF 90 days Discontinued ondansetron Discontinued Reason: Patient Completed Course 4 mg PO Q8H PRN 14 tabs 0RF nausea and vomiting Patient Instructions: - Do not stop taking your Eliquis blood thinner for any reason, as it is critical for preventing a stroke. - We are changing your heart rate medication. You will now take metoprolol tartrate 37.5 mg two times per day. This is a twice-a-day pill, not once a day like your old one. - Please check your blood pressure at home. If it starts to drop too low, let us know, as we may need to adjust your other blood pressure pills. - We are referring you to several specialists to help manage your health: a heart doctor (tire stripper), a kidney doctor (riding silks custodian), and a medication doctor for mood (psychiatrist). - You will be scheduled for an echocardiogram, which is an ultrasound of your heart. - Please go to the lab across [place] to have your blood drawn today. - We will be requesting your old medical records, including your last mammogram and colonoscopy. - Keep your appointment with the stomach doctor (poultry farmworker) in August. - We will not be refilling your prescription for lorazepam (Ativan). - Schedule a follow-up appointment to see us again in two months.
--- OUTSIDE RECORDS SUMMARY | 2025-07-08 08:12 | XMS_ITS | Encounter Summary ---
Author Organization [facility] Address [address] [place] [address] [place] [address] Phone Care Team Providers Care Log Haul Chain Feeder Name Role Phone Anna Taylor MD Primary Care Provider [phone] Arlet Singh MD, MPH Primary Care Provider [...] Expiration Date Visits Re quested Visits Authorized [id number] Closed 05/06/2023 08/04/2023 1 1 Encounter Details Date Type Department Care Team (Late st Contact Info) Description 05/07/2023 Transcribe Orders Virtual Department [address] [place] [address] Katheryn Izquierdo PA [address] [place] [address] rach Radiculopathy, lumbosacral region (Primary Dx); Left [...] Suspected pars defects at L4. Katheryn CERRATO [facility] MR XSPECIALTY Final Result documented in this encounter Visit Diagnoses Diagnosis Radiculopathy, lumbosacral region- Primary Thoracic or lumbosacral neuritis or radiculitis, unspecified Left foot drop Other acquired deformity of ankle and foot Radiculopathy, lumbosacral region Thoracic or lumbosacral neuritis or radiculitis, unspecified Left foot drop Other acquired deformity of ankle and foot documented in this encounter Care Teams Log Haul Chain Feeder Relationship Specialty Start Date End Date Anna Taylor MD [email or web address] PCP - General Family Medicine 06/05/22 05/25/23 Arlet Singh MD, MPH [address] [place] [address] [email or web address] PCP - General Family Medicine 05/26/23 documented as of this encounter Additional Source Comments The information contained in this document represents components of the legal health record. It is not the complete legal health record.[facility]
--- OUTSIDE RECORDS SUMMARY | 2025-07-08 08:12 | XMS_ITS | Encounter Summary ---
Author Organization [facility] Address [address] [facility] [address] [place] [address] Phone Care Team Providers Care Microgrinder Operator Name Role Phone Anna Taylor MD Primary Care Provider [phone] Arlet Singh MD, MPH Primary Care Provider + Encounter Details Date Type Department Care Team (Late st Contact Info) Description 08/13/2022 Procedure Pass [facility], Ct Scan - [address] [address] Social History Tobacco Use Types Packs/Day Years [...] 4:58 PM EST Carol Strange RN * [place] Suicide Severity Rating Scale (Screener/Recent Self-Report) Question [...] on filedocumented in this encounter Care Teams Microgrinder Operator Relationship Specialty Start Date End Date Anna Taylor MD [email or web address] PCP - General Family Medicine 06/05/22 05/25/23 Arlet Singh MD, MPH [address] [place] [address] [email or web address] PCP - General Family Medicine 05/26/23 documented as of this encounter Additional Source Comments The information contained in this document represents components of the legal health record. It is not the complete legal health record.[facility]
--- OUTSIDE RECORDS SUMMARY | 2025-07-08 08:12 | XMS_ITS | Encounter Summary ---
Author Organization [facility] Address [address] [facility] [address] [place] [address] Phone Care Team Providers Care 2Nd Grade Teacher Name Role Phone Anna Taylor MD Primary Care Provider [phone] Arlet Singh MD, MPH Primary Care Provider + Encounter Details Date Type Department Care Team (Late st Contact Info) Description 09/03/2022 Procedure Pass [facility] Endoscopy Admitting Dept Virtual Department [address] [place] [address] Social History Tobacco Use Types Packs/Day Years Used Date Smoking Tobacco: Never Smokeless Tobacco: Never Alcohol Use Standard Drinks/Week Comments Yes 5 (1 standard drink = 0.6 oz pure alcohol) Fridays - None since August Intimate Partner Violence Answer Date R ecorded Are you denied basic needs s [facility] as food, clothing, or medical care? No 09/03/2022 In the past 12 months have y ou been in a relationship with a person who hurts, threatens, or tries to control you? No 09/03/2022 Are you denied basic needs s [facility] as food, clothing, or medical care? [...] on filedocumented in this encounter Care Teams 2Nd Grade Teacher Relationship Specialty Start Date End Date Anna Taylor MD [email or web address] PCP - General Family Medicine 06/05/22 05/25/23 Arlet Singh MD, MPH [address] [place] [address] [email or web address] PCP - General Family Medicine 05/26/23 documented as of this encounter Additional Source Comments The information contained in this document represents components of the legal health record. It is not the complete legal health record.[facility]
--- OUTSIDE RECORDS SUMMARY | 2025-07-08 08:12 | XMS_ITS | Clinical Summary ---
Author Organization [facility] Address [address] [facility] [address] [place] [address] Phone Care Team Providers Care Record Filing Clerk Name Role Phone Arlet Singh MD, MPH [...] 09/03/2022 Are you denied basic needs s [facility] as food, clothing, or medical care? No [...] SEE NARRATIVE - 05/08/2023 2:55 PM EDT [address] [address] Special Education Resource Room Teacher: Ira Matt MD DIRECTOR OF COMPLIANCE Cytology Report FINAL DIAGNOSIS A. PAP SMEAR [...] 59, 66, 68) Note: Testing performed by [employer] HR-HPV analysis. Clinical correlation is advised. This HPV test was performed at [facility], [address] [place] [address]. This test has been FDA approved for [employer] cervical cytology specimens. The accuracy and precision of this test for all other specimen sources has been verified in the Cytopathology Laboratory of the [facility] and has not been cleared or approved by the U.S. Food and Drug Administration. Clinical correlation is advised. CLINICAL HISTORY Date of Last Menstrual Period: Not Provided Menstrual History: Unknown Other Clinical Conditions: Screening Pap SPECIMEN SOURCE A: PAP SMEAR (SUREPATH) CE Patient Name: YARELY CONDE : 1965 (Age: 57) Sex: F Institution: [facility] Location: [facility] Date of Collection: 05/06/2023 Date of Reported: 05/08/2023 14:55 Results to: Katheryn Izquierdo Katheryn CERRATO CYTOLOGY ORDERABLE S Final Result SEE NARRATIVE * (ABNORMAL) Hemoglobin A1c (08/14/2022 5:26 AM EST) HEMOGLOBIN A1C 7.7(H) 4.3 - 5.8 % [facility] Blood 08/14/2022 5:26 AM EST 08/14/2022 7:22 AM EST us William Montoya MD LAB BLOOD BKR ORDERABLES F inal Result Performing Organization Address [facility]/ZIP Co de Phone Number [address] [address] * (ABNORMAL) Basic metabolic panel (08/14/2022 5:26 AM EST) SODIUM 140 133 - 146 mmol/L [facility] CHLORIDE 104 96 - 108 mmol/L [facility] POTASSIUM 3.7 3.3 - 5.1 mmol/L [facility] CO2 27 21 - 35 mmol/L [facility] BUN 15 6 - 19 mg/dL [facility] CREATININE 0.80 0.5 - 1.5 mg/dL [facility] GLUCOSE 113(H) 70 - 99 mg/dL [facility] CALCIUM 8.9 8.4 - 10.3 mg/dL [facility] EGFR 86 >59 mL/min/1.7 3m2 [facility] Comment:Estimated glomerular filtration rate calculated using the CKD-EPI refit equation. ANION GAP 13 10 - 20 mmol/L [facility] Blood 08/14/2022 5:26 AM EST 08/14/2022 6:17 AM EST us William Montoya MD LAB BLOOD BKR ORDERABLES F inal Result Performing Organization Address [facility] Co de Phone Number [address] [address] * ENDOSCOPY, COLON (01/30/2021 7:49 AM EDT) Narrative Transcriptions Jason Hair MD - 01/30/2021 7:49 AM EDT Patient Name: Yarely Conde Attending MD:: JASON HAIR MD Procedure Date: 01/30/2021 7:49 AM Date of : 1965 Age: 55 Admit Type: Outpatient Gender: Female Room: [place] [address] Referring MD: Baltazar Burnham MD Exam Type: [...] 7:49 AM Procedure Code(s): --- Professional --- 93257, Colonoscopy, flexible; diagnostic, including collection of specimen(s) by brushing or washing, when performed (separateprocedure) --- Technical --- 32536, Colonoscopy, flexible; diagnostic, including collection of specimen(s) by brushing or washing, when performed (separateprocedure) Diagnosis Code(s): --- Professional --- R10.84, Generalized abdominal pain R63.4, Abnormal weight loss Q43.8, Other specified congenital malformations of intestine --- Technical --- R10.84, Generalized abdominal pain R63.4, Abnormal weight loss Q43.8, Other specified congenital malformations of intestine CPT copyright 2018 [employer]. All rights reserved. The codes documented in this report are preliminary and upon archives director reviewmay be revised to meet current compliance requirements. Procedure Date: 01/30/2021 7:49:43 AM [address] [place] [address] Baltazar Burnham MD GI PROCEDURE ORDERABLES Final Re sult from Last 3 Months or Most Recently Relevant to Health Maintenance Insurance [facility] [employer] DIRECT FTS [employer] PLANS [address] [place] [address] [place] [address] PLANS DIRECT [facility] [employer] DIRECT [employer] DIRECT [employer] DIRECT [employer] PL[employer] DIRECT [facility] [employer] DIRECT Advance Directives For more information, please contact: [phone] (9AM - 5PM [facility], Saturday-Saturday) * Full Code (Latest Code Status on File) Date Activated Date Inactivated Comments 08/13/2022 8:13 PM Question Answer Comments Code Status Confirmed With: Patient Care Teams Record Filing Clerk Relationship Specialty Start Date End Date Arlet Singh MD, MPH [address] [place] [address] PCP - General Family Medicine 05/26/23 Additional Source Comments The information contained in this document represents components of the legal health record. It is not the complete legal health record.[facility]
--- OUTSIDE RECORDS SUMMARY | 2025-07-08 08:12 | XMS_ITS | Encounter Summary ---
Author Organization [facility] Address [address] [facility] [address] [place] [address] Phone Care Team Providers Care Social Services Technician Name Role Phone Anna Taylor MD Primary Care Provider [phone] Arlet Singh MD, MPH Primary Care Provider + Encounter Details Date Type Department Care Team (Late st Contact Info) Description 06/19/2022 Ancillary Orders Non-Invasive Cardiology [address] [place] [address] Katheryn Izquierdo, PA [address] [place] [address] rach Other form of dyspnea Social History [...] AM EST) Max BP Systolic 130 mmHg [facility] Max BP Diastolic 80 mmHg [facility] Max HR 110 BPM [facility] Resting HR 92 BPM [facility] Resting BP Systolic 130 mmHg [facility] Resting BP Diastolic 80 mmHg [facility] Peak METS 1.0 METS [facility] Peak HR 105 BPM [facility] Anatomical Region Laterality Modality Heart Other 06/19/2022 [...] followed by injection of Tc99m Sestamibi by [facility] nuclear medicine physician. Test was done as a pharmacologic test [...] report for full details. Katie Ling DNP, REMOTE CONTROL MIRROR INSTALLER-BC with Dr. Huynh . us Katheryn CERRATO CV NM CARDIAC Fi nal Result documented in this encounter Visit Diagnoses Diagnosis Other form of dyspnea Other form of dyspnea documented in this encounter Care Teams Social Services Technician Relationship Specialty Start Date End Date Anna Taylor MD PCP - General Family Medicine 06/05/22 05/25/23 Arlet Singh MD, MPH [address] [place] [address] [email or web address] PCP - General Family Medicine 05/26/23 documented as of this encounter Additional Source Comments The information contained in this document represents components of the legal health record. It is not the complete legal health record.[facility]
--- OUTSIDE RECORDS SUMMARY | 2025-07-08 08:12 | XMS_ITS | Encounter Summary ---
Author Organization [facility] Address [address] [facility] [address] [address] Phone Care Team Providers Care Civil Engineer Name Role Phone Anna Taylor MD Primary Care Provider [phone] Arlet Singh MD, MPH Primary Care Provider + Encounter Details Date Type Department Care Team (Late st Contact Info) Description 07/27/2022 Procedure Pass [facility], Ct Scan - [address] [address] Social History Tobacco Use Types Packs/Day Years [...] 07/27/2022 10:51 AM Krista Noe RN * [place] Suicide Severity Rating Scale (Screener/Recent Self-Report) Question [...] on filedocumented in this encounter Care Teams Civil Engineer Relationship Specialty Start Date End Date Anna Taylor MD [email or web address] PCP - General Family Medicine 06/05/22 05/25/23 Arlet Singh MD, MPH [address] [place] [address] [email or web address] PCP - General Family Medicine 05/26/23 documented as of this encounter Additional Source Comments The information contained in this document represents components of the legal health record. It is not the complete legal health record.[facility]
--- OUTSIDE RECORDS SUMMARY | 2025-07-08 08:12 | XMS_ITS | Encounter Summary ---
Author Organization [facility] Address [address] [facility] [address] [place] [address] Phone Care Team Providers Care Senior Dynamics Crm Developer Name Role Phone Cheyenne Oshea MD Unavailable [phone] Baltazar Burnham MD Unavailable Baltazar Burnham MD Primary Care Provider [phone] Anna Taylor MD Primary Care Provider [phone] Arlet Singh MD, MPH Primary Care Provider + Encounter Details Date Type Department Care Team (Late st Contact Info) Description 01/30/2021 Procedure Pass [facility] Endoscopy Admitting Dept Virtual Department [address] [place] [address] Social History Tobacco Use Types [...] filedocumented in this encounter Care Teams Senior Dynamics Crm Developer Relationship Specialty Start Date End Date Baltazar Burnham MD [address] [facility] [address] [place] [address] [email or web address] PCP - General 08/08/17 06/04/22 Anna Taylor MD [address] [facility] [address] [place] [phone] PCP - General Family Medicine 06/05/22 05/25/23 Arlet Singh MD, MPH [address] [place] [address] PCP - General Family Medicine 05/26/23 Cheyenne Oshea MD [address] [place] [address], [facility] [address] [place] [address] [email or web address] Historical LMR Provider 05/23/17 08/12/21 Baltazar Burnham MD [address] [facility] [address] [place] [address] [email or web address] Historical LMR Provider 05/23/17 08/12/21 documented as of this encounter Additional Source Comments The information contained in this document represents components of the legal health record. It is not the complete legal health record.[facility]
--- OUTSIDE RECORDS SUMMARY | 2025-07-08 08:12 | XMS_ITS | Encounter Summary ---
Author Organization [facility] Address [address] [facility] [address] [place] [address] Phone Care Team Providers Care Stopping Builder Name Role Phone Cheyenne Oshea MD Unavailable [phone] Baltazar Burnham MD Unavailable Baltazar Burnham MD Primary Care Provider [phone] Anna Taylor MD Primary Care Provider [phone] Arlet Singh MD, MPH Primary Care Provider + Encounter Details Date Type Department Care Team (Late st Contact Info) Description 01/30/2021 Procedure Pass [facility], Ct Scan - [address] [address] Social History Tobacco Use Types [...] on filedocumented in this encounter Care Teams Stopping Builder Relationship Specialty Start Date End Date Baltazar Burnham MD [address] [facility] [address] [place] [address] [email or web address] PCP - General 08/08/17 06/04/22 Anna Taylor MD [address] [facility] [address] [place] [phone] [email or web address] PCP - General Family Medicine 06/05/22 05/25/23 Arlet Singh MD, MPH [address] [place] [address] [email or web address] PCP - General Family Medicine 05/26/23 Cheyenne Oshea MD [address] [place] [address], [facility] [address] [place] [address] [email or web address] Historical LMR Provider 05/23/17 08/12/21 Baltazar Burnham MD [address] [facility] [address] [place] [address] [email or web address] Historical LMR Provider 05/23/17 08/12/21 documented as of this encounter Additional Source Comments The information contained in this document represents components of the legal health record. It is not the complete legal health record.[facility]
--- OUTSIDE RECORDS SUMMARY | 2025-07-08 08:12 | XMS_ITS | Encounter Summary ---
Author Organization [facility] Address [address] [facility] [address] [place] [address] Phone Care Team Providers Care Supervisor Stripping Name Role Phone Anna Taylor MD Primary Care Provider [phone] Arlet Singh MD, MPH Primary Care Provider + Encounter Details Date Type Department Care Team (Late st Contact Info) Description 08/13/2022 Procedure Pass [facility], Ct Scan - [address] [address] Social History Tobacco Use Types Packs/Day Years [...] 4:58 PM EST Carol Strange RN * [place] Suicide Severity Rating Scale (Screener/Recent Self-Report) Question [...] filedocumented in this encounter Care Teams Supervisor Stripping Relationship Specialty Start Date End Date Anna Taylor MD [email or web address] PCP - General Family Medicine 06/05/22 05/25/23 Arlet Singh MD, MPH [address] [place] [address] [email or web address] PCP - General Family Medicine 05/26/23 documented as of this encounter Additional Source Comments The information contained in this document represents components of the legal health record. It is not the complete legal health record.[facility]
--- OUTSIDE RECORDS SUMMARY | 2025-07-08 08:12 | XMS_ITS | Encounter Summary ---
Author Organization [facility] Address [address] [place] [address] [place] [address] Phone Care Team Providers Care Commercial Baker Helper Name Role Phone Anna Taylor MD Primary Care Provider [phone] Arlet Singh MD, MPH Primary Care Provider + Encounter Details Date Type Department Care Team (Late st Contact Info) Description 08/14/2022 Procedure Pass [facility]oscopy Admitting Dept Virtual Department [address] [place] [address] Social History Tobacco Use Types Packs/Day Years [...] on filedocumented in this encounter Care Teams Commercial Baker Helper Relationship Specialty Start Date End Date Anna Taylor MD [email or web address] PCP - General Family Medicine 06/05/22 05/25/23 Arlet Singh MD, MPH [address] [place], [place] [id number] [email or web address] PCP - General Family Medicine 05/26/23 documented as of this encounter Additional Source Comments The information contained in this document represents components of the legal health record. It is not the complete legal health record.[facility]
--- OUTSIDE RECORDS SUMMARY | 2025-07-08 08:12 | XMS_ITS | Encounter Summary ---
Author Organization [facility] Address [address] [facility] [address] [place] [address] Phone Care Team Providers Care Sign Writer Letterer Or Painter Name Role Phone Anna Taylor MD Primary Care Provider [phone] Arlet Singh MD, MPH Primary Care Provider + Encounter Details Date Type Department Care Team (Late st Contact Info) Description 05/07/2023 Procedure Pass [facility], [address] [address] Social History Tobacco Use Types Packs/Day Years [...] on filedocumented in this encounter Care Teams Sign Writer Letterer Or Painter Relationship Specialty Start Date End Date Anna Taylor MD PCP - General Family Medicine 06/05/22 05/25/23 Arlet Singh MD, MPH [address] [place] [address] PCP - General Family Medicine 05/26/23 documented as of this encounter Additional Source Comments The information contained in this document represents components of the legal health record. It is not the complete legal health record.[facility]
--- OUTSIDE RECORDS SUMMARY | 2025-07-08 08:12 | XMS_ITS | Encounter Summary ---
Author Organization [facility] Address [address] [facility] [address] [place] [address] Phone Care Team Providers Care Cloth Weaver Name Role Phone Baltazar Burnham MD Primary Care Provider [phone] Anna Taylor MD Primary Care Provider [phone] Arlet Singh MD, MPH Primary Care Provider [...] Expiration Date Visits Re quested Visits Authorized [id number] Closed 05/31/2022 08/28/2022 4 4 Encounter Details Date Type Department Care Team (Late st Contact Info) Description 06/01/2022 Transcribe Orders Virtual Department [address] [place] [address] Katheryn Izquierdo PA [address] [place] [address] rach Other form of dyspnea (Primary Dx) [...] infarct. LVEF calculated at approximately 63%. POS [id number] Narrative 06/20/2022 9:39 AM EST COMPARISON: None [...] No evidence of infarct. LVEF calculated at [id number]%. POS [id number] us Katheryn CERRATO CV NM CARDIAC Fi nal Result documented in this encounter Visit Diagnoses Diagnosis Other form of dyspnea- Primary Other form of dyspnea documented in this encounter Care Teams Cloth Weaver Relationship Specialty Start Date End Date Baltazar Brunham MD [address] [place] [address] [email or web address] PCP - General 08/08/17 06/04/22 Anna Taylor MD [address] [place] [address] [email or web address] PCP - General Family Medicine 06/05/22 05/25/23 Arlet Singh MD, MPH [address] [place] [address] PCP - General Family Medicine 05/26/23 documented as of this encounter Additional Source Comments The information contained in this document represents components of the legal health record. It is not the complete legal health record.[facility]
--- OUTSIDE RECORDS SUMMARY | 2025-07-08 08:12 | XMS_ITS | Encounter Summary ---
Author Organization [facility] Address [address] [facility] [address] [place] [phone] Phone Care Team Providers Care Campaign Analyst Name Role Phone Anna Taylor MD Primary Care Provider [phone] Arlet Singh MD, MPH Primary Care Provider + Encounter Details Date Type Department Care Team (Late st Contact Info) Description 07/27/2022 Procedure Pass [facility], Ct Scan - [address] [address] Social History Tobacco Use Types Packs/Day Years [...] 07/27/2022 10:51 AM Krista Noe RN * [place] Suicide Severity Rating Scale (Screener/Recent Self-Report) Question [...] on filedocumented in this encounter Care Teams Campaign Analyst Relationship Specialty Start Date End Date Anna Taylor MD [email or web address] PCP - General Family Medicine 06/05/22 05/25/23 Arlet Singh MD, MPH [address] [place] [address] [email or web address] PCP - General Family Medicine 05/26/23 documented as of this encounter Additional Source Comments The information contained in this document represents components of the legal health record. It is not the complete legal health record.[facility]
--- OUTSIDE RECORDS SUMMARY | 2025-07-08 08:12 | XMS_ITS | Encounter Summary ---
Author Organization [facility] Address [address] [facility] [address] [place] [address] Phone Care Team Providers Care Vp Revenue Cycle Name Role Phone Cheyenne Oshea MD Unavailable [phone] Baltazar Burnham MD Unavailable Baltazar Burnham MD Primary Care Provider [phone] Anna Taylor MD Primary Care Provider [phone] Arlet Singh MD, MPH Primary Care Provider [...] Expiration Date Visits Re quested Visits Authorized [id number] Closed 01/30/2021 04/30/2021 1 1 Encounter Details Date Type Department Care Team (Latest Contact Info) Description 01/30/2021 Transcribe Orders [facility] [address] [place], [place] [id number] Terry Self MD [address] [place] [phone] [email or web address] Abdominal pain, unspecified abdominal location (Primary [...] loss documented in this encounter Care Teams Vp Revenue Cycle Relationship Specialty Start Date End Date Baltazar Burnham MD [address] [place] [address] [email or web address] PCP - General 08/08/17 06/04/22 Anna Taylor MD [address] [place] [address] [email or web address] PCP - General Family Medicine 06/05/22 05/25/23 Arlet Singh MD, MPH [address] [place] [address] [email or web address] PCP - General Family Medicine 05/26/23 Cheyenne Oshea MD [address] [place] [address], [facility] [address] [place] [address] [email or web address] Historical LMR Provider 05/23/17 08/12/21 Baltazar Burnham MD [address] [place] [address] [email or web address] Historical LMR Provider 05/23/17 08/12/21 documented as of this encounter Additional Source Comments The information contained in this document represents components of the legal health record. It is not the complete legal health record.[facility]
--- OUTSIDE RECORDS SUMMARY | 2025-07-08 08:13 | XMS_ITS | Encounter Summary ---
Author Organization [facility] Address [address] [facility] [address] [place] [address] Phone Care Team Providers Care Dermatology Sales Representative Name Role Phone Anna Taylor MD Primary Care Provider [phone] Arlet Singh MD, MPH Primary Care Provider + Encounter Details Date Type Department Care Team (Late st Contact Info) Description 08/13/2022 Procedure Pass [facility], [address] [address] Social History Tobacco Use Types Packs/Day Years [...] 4:58 PM EST Carol Strange RN * [place] Suicide Severity Rating Scale (Screener/Recent Self-Report) Question [...] on filedocumented in this encounter Care Teams Dermatology Sales Representative Relationship Specialty Start Date End Date Anna Taylor MD [email or web address] PCP - General Family Medicine 06/05/22 05/25/23 Arlet Singh MD, MPH [address] [place] [address] [email or web address] PCP - General Family Medicine 05/26/23 documented as of this encounter Additional Source Comments The information contained in this document represents components of the legal health record. It is not the complete legal health record.[facility]
[2025-07-08 08:15] VITALS: BP 94/62; PULSE 102; RESP 18; TEMP 37.1; O2SAT 96; BMI 29.7
== END 2025-07-08 08:46 | disposition home or self-care (01) ==
LOC: HO.HMCHD 08:04
PROVIDERS: PCP Student in an Organized Health Care Education/Training Program; Visit Provider Student in an Organized Health Care Education/Training Program
DX: Z00.00 Encounter for general adult medical examination without abnormal findings (principal); I12.9 Hypertensive chronic kidney disease with stage 1 through stage 4 chronic kidney disease, or unspecified chronic kidney disease; E11.42 Type 2 diabetes mellitus with diabetic polyneuropathy; Z79.4 Long term (current) use of insulin; I48.0 Paroxysmal atrial fibrillation; N18.32 Chronic kidney disease, stage 3b; F41.9 Anxiety disorder, unspecified; F32.A Depression, unspecified; K22.70 Barrett's esophagus without dysplasia; E61.1 Iron deficiency

== ENCOUNTER → 2025-07-08 08:04 | Outpatient (BNVA) | payer OTHER, SELFPAY | PROVIDERS: PCP Student in an Organized Health Care Education/Training Program; Visit Provider Student in an Organized Health Care Education/Training Program | DX: Z00.00 Encounter for general adult medical examination without abnormal findings (principal); E61.1 Iron deficiency; K22.70 Barrett's esophagus without dysplasia; I10 Essential (primary) hypertension; N18.32 Chronic kidney disease, stage 3b; F41.9 Anxiety disorder, unspecified; F32.A Depression, unspecified; I48.0 Paroxysmal atrial fibrillation; E11.42 Type 2 diabetes mellitus with diabetic polyneuropathy; Z79.4 Long term (current) use of insulin; Z79.899 Other long term (current) drug therapy; Z13.31 Encounter for screening for depression; Z13.39 Encounter for screening examination for other mental health and behavioral disorders | CPT/HCPCS: 96127; 99202; 99386 ==

== ENCOUNTER 2025-07-08 08:48 | Outpatient (REF) | payer OTHER, SELFPAY ==
--- OUTSIDE RECORDS SUMMARY | 2025-07-08 09:32 | XMS_ITS | Clinical Summary ---
Author Organization [address] [facility] Address [address] [place] [address] Phone Care Team Providers Care Wire Charger Name Role Phone Katheryn Izquierdo Primary Care [...] to allow for permissive hypertension Diabetes mellitus ([facility] V24, [facility] V28) Overview (07/01/2024): Last Assessment & [...] for a right SI joint injection at [facility]. As she has no back [...] adjustment. Appt scheduled with Barbara. Referral to [facility] [place] for intensive self management. 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 Overview (07/01/2024): surgical repair age 25 IMO update Other specified hemorrhagic conditions (CMS/[facility] V24) 08/07/2006 Overview (07/01/2024): age 5 [...] V24) 08/07/2006 DX:Other specified hemorrhag ic conditions ([facility]); COMMENT: age 5 Type II or [...] uncontrolled Diabetes mellitus type II, c ontrolled ([facility] V24, [facility] V28) 11/12/2007 DX:Diabetes mellitus type I I, controlled ([facility]) Esophageal reflux DX:Esophageal reflux Essential hypertension, benign D X:Essential hypertension, benign Lumbar disc herniation 06/16/2012 DX:Lumbar disc herniation Obesity 07/11/2012 DX:Obesity Hypoglycemia DX:Hypoglycemia Vitamin D deficiency DX:Vitamin D deficiency Major depressive disorder DX:Duglas or depressive disorder Insomnia DX:Insomnia Otitis externa DX:Otitis 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 Impacted cerumen DX:Impacted cer umen Other seasonal allergic rhinitis DX:Other seasonal allergic rhinitis Cholecystitis DX:Cholecystitis Low back pain DX:Low back pain Neuropathy DX:Neuropathy Severe diabetic hypoglycemia ([facility] V24, [facility] V28) DX:Severe diabetic hypoglyce darleen ([facility]) Seasonal allergic rhinitis 08/22/2022 DX:Se asonal allergic rhinitis Postmenopausal bleeding DX:Postm enopausal bleeding Abnormal weight gain DX:Abnormal weight gain Type 2 diabetes mellitus, co ntrolled ([facility] V24, [facility] V28) 08/22/2022 DX:Type 2 diabetes mellitus , controlled ([facility]) Family History Medical History Relation Name Comments Hypertension Father ulcer,[place], colon polyps at 67, metastatic cancer with [...] 1985 Cervical Cancer Screening: Pap Smear 06/09/2015 06/09/2012 RSV Immunization Adult Patients (1 - [...] 08/14/2022 URINE ALBUMIN CREATININE RATIO Routine 01/30/2013 PAP SMEAR Routine 06/09/2012 from Last 3 Months or Most Recently Relevant to Health Maintenance Results * Annual BMP Blood Test (08/14/2022) Annual BMP Blood Test abstracted us Historical Provider HEALTH MAINTENANCE Final Result * Hemoglobin A1c (08/14/2022) Hemoglobin A1C 0.0 % Comment:no interpretation, a bstracted Blood Venous blood specimen / Unknown Result [facility] Provider LAB BLOOD ORDERABLES Sandee l Result * Lipid panel (08/14/2022) Pathologist [facility] Triglycerides 0 mg/dL Comment:no interpretation, a bstracted Cholesterol 0 mg/dL Comment:no interpretation, a bstracted HDL 0 mg/dL Comment:no interpretation, a bstracted LDL Cholesterol 0 mg/dL Comment:no interpretation, a bstracted Blood Venous blood specimen / Unknown Result [facility] Provider LAB BLOOD ORDERABLES Sandee l Result * Urine Albumin Creatinine Ratio (01/30/2013) Pathologist [facility] Urine Albumin Creatinine Ratio abstracted Result [facility] Provider HEALTH MAINTENANCE Final Result * Pap Smear (06/09/2012) Pathologist [facility] Pap smear no interpretation , abstracted Result [facility] Provider HEALTH MAINTENANCE Final Result from Last 3 Months or Most Recently Relevant to Health Maintenance Insurance [facility] [employer] PL[employer] [facility] [employer] PL[employer] Care Teams Wire Charger Relationship Specialty Start Date End Date Katheryn Izquierdo PA [address] [place] [phone] PCP - General 07/09/22
[2025-07-08 11:01] LABS: Cholesterol 152 mg/dL (<200); HDL Cholesterol 66 mg/dL (>40); Triglycerides 111 mg/dL (<150)
[2025-07-08 11:07] LABS: HBS Num1 0.00 mIU/mL (0-7.99); HBc Num1 0.07 S/CO (0.00-0.79); HBsAGNum1 0.37 S/CO (0.00-0.99); HIV Num 1 0.05 S/CO (0.00-0.99); Hepatitis A Antibody IgM 0.20 Index (0-0.79); Hepatitis B Surface Antigen Negative (Negative); ~HepC Num1 0.22 S/CO (0.00-0.79); ~Hepatitis A Antibody IgM Nonreactive (Nonreactive); ~Hepatitis B Surface Antibody NONREACTIVE (Nonreactive); ~Hepatitis C Antibody Nonreactive (Nonreactive)
[2025-07-08 11:08] LABS: Syphilis Screen Nonreactive (Nonreactive)
[2025-07-08 11:17] LABS: Folate 16.7 ng/mL (> or = 4.0); Vitamin B12 533 pg/mL (200-900)
[2025-07-08 11:19] LABS: Parathyroid Hormone Intact 58.2 pg/mL (8.7-77.1)
[2025-07-08 11:57] LABS: Microalbum/Creatinine Ratio Ur 5.3 ug/mg cr (<30)
== END 2025-07-08 08:49 | disposition home or self-care (01) ==
LOC: HO.10HDL 08:48
PROVIDERS: Visit Provider Student in an Organized Health Care Education/Training Program
DX: Z00.00 Encounter for general adult medical examination without abnormal findings (principal); Z11.4 Encounter for screening for human immunodeficiency virus [HIV]; Z11.59 Encounter for screening for other viral diseases; Z11.3 Encounter for screening for infections with a predominantly sexual mode of transmission; N18.32 Chronic kidney disease, stage 3b
CPT/HCPCS: 36415; 80061; 82043; 82306; 82436; 82570; 82607; 82746; 83036; 83970; 84133; 84300; 84443; 86704; 86706; 86709; 86780; 86803; 87340; 87389

== ENCOUNTER 2025-08-03 14:28 | Outpatient (AMB) | payer OTHER, SELFPAY ==
[2025-08-03 14:32] VITALS: BP 80/58; PULSE 83; O2SAT 91; BMI 29.9
--- NOTE | 2025-08-03 14:32 | HO.NEPHOV_ITS ---
Vital Signs 08/03/25 14:32 Height 5 ft 4.7 in Weight 178 lb BMI 29.9 BP 80/58 L Blood Pressure Location Lt brachial Position Sitting Pulse 83 Pulse Source Pulse Oximeter Pulse Oximetry (%) 91 L Oxygen Delivery Method Room Air Intake Visit Reasons: INP Chronic Kidney Dz Manufactured Buildings Supervisor Required: No Accompanied by: Daughter Allergies No Known Allergies Allergy (Verified 08/03/25 14:35) Is last menstrual period known: No Do you need a note to return to daycare/school/sports/work: No HPI Comments Details: 60 years old lady with PMH of hypertension, diabetes mellitus, CKD stage IIIB is here to establish care Hypertension: Since she was 34years, on lisinopril 40, hydrochlorothiazide 12.5, metoprolol 37.5 b.i.d. Diabetes mellitus: Since she was 30years started as gestational diabetes, poorly controlled on insulin 35 units daily, metformin b.i.d. Atrial fibrillation: On metoprolol for rate control and apixaban for anticoagulation she is dizzy and tired since June starting the metoprolol She is on 4 pills of ibuprofen for about 6 months for pain in her hands, elbow, shoulder worse in the morning PFSH Medical History Annual physical exam Iron deficiency Barretts esophagus Hypertension, essential, benign CKD stage 3b, GFR 30-44 ml/min Anxiety and depression Atrial fibrillation Fusion of lumbar spine Back pain with history of spinal surgery Atrial septal defect Bunion of unspecified foot delivery delivered Iron deficiency anemia High blood pressure Diabetes Surgical History Gastric bypass status for obesity H/O heart surgery Social History Household Members: Family Housing: House Alcohol intake: never Patient Tobacco Use Status: Never used Tobacco e-Cigarette/Vaping Use: Never Used service: No Current occupational status: unemployed Review of Systems Const Details: Const : no body aches, no chills, no excessive sweating and no fatigue Eyes: no blurry vision and no change in vision ENT: no bleeding gums and no change in voice, no dizziness Card: no chest pain, no shortness of breath, no orthopnea, no PND Resp: no cough, no excessive phlegm production, no SOB GI: no abdominal pain and no nausea, no vomiting : no hematuria, no urinary frequency and no difficulty voiding Musc: no abnormal gait, no bone pain, + multiple joint pain Neuro: no abnormal movements, no weakness, + dizziness Psych: no behavioral changes and no change in appetite Endo: no excessive sweating and no fatigue Physical Exam General: not in any acute distress, comfortable, sitting on the chair Nutritional Appearance: well nourished and weight Eyes: normal position, no icterus Neck: No lymphadenopathy, no thyromegaly Resp: bilateral air entry equal, no added sounds present Cardio: normal S1, S2 heard, no murmur heard, no edema GI: soft, nontender, no guarding, no hepatosplenomegaly : bladder normal to inspection, bladder normal to palpation, no renal angle tenderness Skin: no rashes or lesions noted and elasticity normal Neuro: oriented to person, oriented to place, oriented to time and moves all extremities Results Reviewed Nephrology Results: Hgb, (12.0-16.0) 14.2 g/dl 06/16/25 WBC, (4.8-10.8) 7.2 X10*3/uL 06/16/25 Plt Count, (160-400) 297 X10*3/uL 06/16/25 Sodium, (135-145) 136 mmol/L 06/16/25 Potassium, (3.3-5.1) 4.6 mmol/L 06/16/25 Chloride, (96-108) 104 mmol/L 06/16/25 Carbon Dioxide, (22-29) 21 mmol/L L 06/16/25 BUN, (9-16) 36 mg/dL H 06/16/25 Creatinine, (0.5-1.4) 1.50 mg/dL H 06/16/25 Calcium, (8.4-10.2) 9.8 mg/dL Δ 06/16/25 PTH Intact, (8.7-77.1) 58.2 pg/mL 07/08/25 Urine Protein, (Neg-Trace) 30 (1+) mg/dL H 05/29/25 Urine Creatinine 131.61 mg/dL 07/08/25 Assessment & Plan Assessment & Plan (1) CKD stage 3b, GFR 30-44 ml/min: Code(s): N18.32 - Chronic kidney disease, stage 3b Category: Medical (2) Hypertension, essential, benign: Code(s): I10 - Essential (primary) hypertension Category: Medical (3) Diabetes: Code(s): E11.9 - Type 2 diabetes mellitus without complications Category: Medical Qualifiers: Diabetes mellitus type: type 2 Diabetes mellitus fpc insulin use: with press tender long goods use Diabetes mellitus complication status: with neurologic complications Diabetes mellitus complication detail: with polyneuropathy Qualified Code(s): E11.42 - Type 2 diabetes mellitus with diabetic polyneuropathy; Z79.4 - terminal press operator (current) use of insulin Plan Chronic kidney disease stage IIIb A1: Possibly secondary to chronic NSAIDs use for possible rheumatoid arthritis. If the renal function progressively worsens will get renal biopsy. - no family history of CKD, no history of renal stones in the past. - creatinine 1.50, GFR 36 - urine microalbumin creatinine ratio:5.3 - Urinalysis shows 1+ protein, >1000 glucose but no cells - hepatitis panel and HIV negative - CT abdomen in 05/29 shwoed normal sized kidneys no obstruction - avoid nephrotoxic medications not limited to NSAIDs, contrast etc. - importance of LPD protein about 0.6mg/kg/day, benefits of plant based diet, weight loss, adequate blood pressure control, stop smoking well explained to patient - will get CARROLL, ANCA, rheumatoid factor, complement levels today - asked her to stop NSAIDs including ibuprofen/Aleve/naproxen that she has been taking for possible rheumatoid arthritis. We will send a referral for rheumatology evaluation and pain management. Ask the patient to call primary care if the patient can to lose to have pain despite taking Tylenol 2-3 tablets a day for pain management. Hypertension: - target blood pressures less than 130/90 mm Hg - blood pressure is low, asked the patient to keep a log of her blood pressures and send it to me over the next 2 weeks. - for now hold off on lisinopril and HCTZ; continue metoprolol - if she is more symptomatic asked her to go to the ED Mineral bone disease: -vitamin-D 84.3 and PTH levels 58.2 This note is constructed using voice recognition software. While every effort has been made to ensure accuracy senior inspector errors may have been included. Total time spent in the clinic is about 40 minutes, 10 minutes on chart review, review of data, 20 minutes on encounter, physical examination, counseling, answering all the questions, 10 minutes on documentation. Orders: Orders Microalbumin, Random (w Creat) Today E11.42 - Type 2 diabetes mellitus with diabetic polyneuropathy, I10 - Essential (primary) hypertension, N18.32 - Chronic kidney disease, stage 3b, Z79.4 - terminal press operator (current) use of insulin Protein Creatinine Ratio, Ur Today E11.42 - Type 2 diabetes mellitus with diabetic polyneuropathy, I10 - Essential (primary) hypertension, N18.32 - Chronic kidney disease, stage 3b, Z79.4 - group home (current) use of insulin CARROLL Reflex Titer and Pattern Today E11.42 - Type 2 diabetes mellitus with diabetic polyneuropathy, I10 - Essential (primary) hypertension, N18.32 - Chronic kidney disease, stage 3b, Z79.4 - terminal press operator (current) use of insulin ANCA Vasculitides Today E11.42 - Type 2 diabetes mellitus with diabetic polyneuropathy, I10 - Essential (primary) hypertension, N18.32 - Chronic kidney disease, stage 3b, Z79.4 - terminal press operator (current) use of insulin Rheumatoid Factor Today E11.42 - Type 2 diabetes mellitus with diabetic polyneuropathy, I10 - Essential (primary) hypertension, N18.32 - Chronic kidney disease, stage 3b, Z79.4 - terminal press operator (current) use of insulin UA and rflx microscopic Today E11.42 - Type 2 diabetes mellitus with diabetic polyneuropathy, I10 - Essential (primary) hypertension, N18.32 - Chronic kidney disease, stage 3b, Z79.4 - group home (current) use of insulin Basic Metabolic Panel Today E11.42 - Type 2 diabetes mellitus with diabetic polyneuropathy, I10 - Essential (primary) hypertension, N18.32 - Chronic kidney disease, stage 3b, Z79.4 - group home (current) use of insulin Complement C3 Today N18.32 - Chronic kidney disease, stage 3b Complement C4 Today N18.32 - Chronic kidney disease, stage 3b Referrals Rheumatology Referral M06.9 - Rheumatoid arthritis, unspecified Coding Level of Care Code New Pt Level 4 (46228) Diagnoses CKD stage 3b, GFR 30-44 ml/min N18.32 Hypertension, essential, benign I10 Type 2 diabetes mellitus with diabetic polyneuropathy, with long-term current use of insulin E11.42; Z79.4 Diabetes mellitus type: type 2 Diabetes mellitus press tender long goods insulin use: with press tender long goods use Diabetes mellitus complication status: with neurologic complications Diabetes mellitus complication detail: with polyneuropathy
--- OUTSIDE RECORDS SUMMARY | 2025-08-03 18:09 | XMS_ITS | Clinical Summary ---
Author Organization [address] [facility] Address [address] [place] [address] Phone Care Team Providers Care Technical Sales Consultant Name Role Phone Katheryn Izquierdo Primary Care [...] to allow for permissive hypertension Diabetes mellitus 07/18/2023 Overview (07/01/2024): Last Assessment & Plan: Continue [...] for a right SI joint injection at [facility]. As she has no back pain, we [...] on Lantus dose adjustment. Appt scheduled with Barbaar. Referral to [facility] [place] for intensive self management. 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 Overview (07/01/2024): surgical repair age 25 [facility] update Other specified hemorrhagic conditions 7 Overview (07/01/2024): age 5 Pyelonephritis 05/07/2006 Overview (07/01/2024): positive blood culture 04/10 [facility] update Hypertension 06/13/2005 Depression 06/13/2005 Immunizations Immunization Administration Dates Next Due H1N1 Inj Preservative Free 06/17/2009 Influenza trivalent, 0.5mL, preservative free (Fluarix; FluLaval; Fluzone) ages 6mo and older (Afluria) 3 years and older 05/28/2014,05/05/2013 Influenza trivalent, with pr eservative (Fluzone; Afluria) 6mo and older 05/30/2022,05/23/2021,04/16/2021,06/11,05/29/2019,06/02/2018,05/27/2017 ,04/18/2016,05/09/2015,06/09/2012,10/02/2011,05/24/2010,05/20/2008, 7,05/07/2006 Pfizer (ages 12 & older) Biv [...] HISTORICAL DELIVERY; COMMENT: times 2 BUNIONECTOMY PROCEDURE: TN CORRJ HLX VLGS BNCTY SESMDC W/DOUBLE OSTEOTOMY; COMMENT: bilateral OTHER SURGICAL HISTORY PROCEDURE: TN RADIAL KERATOTOMY; COMMENT: lasix surger x 9 [...] uncontrolled Diabetes mellitus type II, c ontrolled ([facility] V24, [facility] V28) 11/12/2007 DX:Diabetes mellitus type I I, controlled ([facility]) Esophageal reflux DX:Esophageal reflux Essential hypertension, benign D X:Essential hypertension, benign Lumbar disc herniation 06/16/2012 DX:Lumbar disc herniation Obesity 07/11/2012 DX:Obesity Hypoglycemia DX:Hypoglycemia Vitamin D deficiency DX:Vitamin D deficiency Major depressive disorder DX:Duglas or depressive disorder Insomnia DX:Insomnia Otitis externa DX:Otitis 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 Impacted cerumen DX:Impacted cer umen Other seasonal allergic rhinitis DX:Other seasonal allergic rhinitis Cholecystitis DX:Cholecystitis Low back pain DX:Low back pain Neuropathy DX:Neuropathy Severe diabetic hypoglycemia ([facility] V24, [facility] V28) DX:Severe diabetic hypoglyce darleen ([facility]) Seasonal allergic rhinitis 08/22/2022 DX:Se asonal allergic rhinitis Postmenopausal bleeding DX:Postm enopausal bleeding Abnormal weight gain DX:Abnormal weight gain Type 2 diabetes mellitus, co ntrolled ([facility] V24, [facility] V28) 08/22/2022 DX:Type 2 diabetes [...] Orientation Straight 08/19/2024 8: 08 AM EST Last Filed Vital Signs Vital Sign [...] Screening 1966 Colorectal Cancer Screening: Colonoscopy 1966 Drug Screen 1966 Non-Opioid Controlled Substance Agreement 1966 Diabetes: Annual Foot Exam 1976 Diabetes: [...] Blood Venous blood specimen / Unknown Result [facility] Provider LAB BLOOD ORDERABLES Sandee l Result * Lipid panel (08/14/2022) Pathologist [facility] Triglycerides 0 mg/dL Comment:no interpretation, a bstracted Cholesterol 0 mg/dL Comment:no interpretation, a bstracted HDL 0 mg/dL Comment:no interpretation, a bstracted LDL Cholesterol 0 mg/dL Comment:no interpretation, a bstracted Blood Venous blood specimen / Unknown Result [facility] Provider LAB BLOOD ORDERABLES Sandee l Result * Urine Albumin Creatinine Ratio (01/30/2013) Pathologist [facility] Urine Albumin Creatinine Ratio abstracted Result [facility] Provider HEALTH MAINTENANCE Final Result * Pap Smear (06/09/2012) Pathologist [facility] Pap smear no interpretation , abstracted Result [facility] Provider HEALTH MAINTENANCE Final Result from Last 3 Months or Most Recently Relevant to Health Maintenance Insurance [facility] [employer] PLANS [facility] [employer] PL[employer] Care Teams Technical Sales Consultant Relationship Specialty Start Date End Date Katheryn Izquierdo PA [address] [place] [phone] PCP - General 07/09/22
== END 2025-08-03 15:07 | disposition home or self-care (01) ==
LOC: HO.HKA 14:29
PROVIDERS: PCP Student in an Organized Health Care Education/Training Program; Visit Provider Internal Medicine Critical Care Medicine
DX: N18.32 Chronic kidney disease, stage 3b (principal); I10 Essential (primary) hypertension; E11.42 Type 2 diabetes mellitus with diabetic polyneuropathy; Z79.4 Long term (current) use of insulin
CPT/HCPCS: 99204

== ENCOUNTER → 2025-08-03 14:28 | Outpatient (BNVA) | payer OTHER, SELFPAY | PROVIDERS: PCP Student in an Organized Health Care Education/Training Program; Visit Provider Internal Medicine Critical Care Medicine | DX: I12.9 Hypertensive chronic kidney disease with stage 1 through stage 4 chronic kidney disease, or unspecified chronic kidney disease (principal); E11.22 Type 2 diabetes mellitus with diabetic chronic kidney disease; N18.32 Chronic kidney disease, stage 3b; E11.42 Type 2 diabetes mellitus with diabetic polyneuropathy; M89.9 Disorder of bone, unspecified; E83.9 Disorder of mineral metabolism, unspecified; Z79.4 Long term (current) use of insulin; Z79.899 Other long term (current) drug therapy; Z79.84 Long term (current) use of oral hypoglycemic drugs | CPT/HCPCS: 99202 ==